=== PATIENT | female | born 1930 | race Caucasian/White ===

== ENCOUNTER → 2016-02-20 | Outpatient (CLI) | payer OTHER ==
[~2016-02-20] MED LIST: ACET325T30 PO; APIX1TAB PO; APIX1TAB3 PO; ASPI-435 PO; ATOR-24 PO; ATR10 PO; BENZ10LO2 PO; CALC600T24 PO; CEPH500C2 PO; CRAN1CAP6 PO; CRAN500C2 PO; DOCU-94 PO; DOCU100C31 PO; FURO-85 PO; HYDR1OIN11 TOP; IMDSR30 PO; ISOS30TA35 PO; LEVO25TA PO; LPR25 PO; LPT40 PO; LXP20 PO; METO25TA56 PO; MGNO400 PO; MOML PO; MULTCAP33 PO; NTRSLP4 UT; OMEG340C PO; OMG3 PO; OXYB10TA PO; OXYB10TA13 PO; PARO1TAB27 PO; PLV75 PO; POTA1TAB97 PO; SACU1TAB PO; SENN8.6T11 PO; SOTA120T PO; SOTA120T16 PO; SPT/ PO; SULF800T23 PO; ZNTT/150 PO; [UNRECOGNIZED DRUG - CODE]; [UNRECOGNIZED DRUG - CODE] MT
== END | disposition home or self-care (01) ==
LOC: C.LABSPEC 16:19
PROVIDERS: ATTEND Internal Medicine
DX: J11.1 Influenza due to unidentified influenza virus with other respiratory manifestations (principal)

== ENCOUNTER 2016-03-02 09:27 | Emergency (ER) | payer OTHER ==
[~2016-03-02 09:27] MED LIST changes: -ACET325T30 PO; -APIX1TAB PO; -APIX1TAB3 PO; -ATOR-24 PO; -ATR10 PO; -BENZ10LO2 PO; -CEPH500C2 PO; -CRAN1CAP6 PO; -DOCU-94 PO; -DOCU100C31 PO; -FURO-85 PO; -HYDR1OIN11 TOP; -ISOS30TA35 PO; -LEVO25TA PO; -METO25TA56 PO; -MGNO400 PO; -MOML PO; -OMEG340C PO; -OXYB10TA13 PO; -PARO1TAB27 PO; -POTA1TAB97 PO; -SACU1TAB PO; -SOTA120T PO; -SOTA120T16 PO; -SPT/ PO; -ZNTT/150 PO; -[UNRECOGNIZED DRUG - CODE]; -[UNRECOGNIZED DRUG - CODE] MT
[2016-03-02 09:37] VITALS: TEMP 36.3; Ht 160 cm
[2016-03-02] MEDS ORDERED: [UNRECOGNIZED DRUG - CODE] (10:16)
[2016-03-02 11:05] LABS: BASO % 1.1 %; BASO ABS # 0.07 K/uL (0-0.2); COMPLETE YES; EOS % 14.1 %; HEMATOCRIT 42.8 % (37-47); IG% 0.2 %; LYMPH ABS # 1.38 K/uL (1.2-3.4); MEAN CELL VOLUME 75.5 fL (80-100); MEAN CORPUSCULAR HEMOGLOBIN 24.3 pg (25-34); MEAN CORPUSCULAR HGB CONC 32.2 g/dl (32-36); MEAN PLATELET VOLUME 9.9 fL (7.4-10.4); MONO % 9.7 %; NEUT % 53.9 %; PLATELET COUNT 209 K/uL (130-400); RED BLOOD COUNT 5.67 M/uL (4.2-5.4); WHITE BLOOD COUNT 6.58 K/uL (4.8-10.8)
[2016-03-02 11:14] LABS: INR 1.3 (0.9-1.1); PARTIAL THROMBOPLASTIN RATIO 1.1
[2016-03-02 11:21] LABS: BLOOD UREA NITROGEN 20 mg/dl (7-18); BUN/CREATININE RATIO 16.7 (10-20); CALCIUM 9.6 mg/dl (8.5-10.1); CARBON DIOXIDE 27 mmol/L (21-32); CHLORIDE 101 mmol/L (98-107); GLUCOSE 91 mg/dl (70-99); POTASSIUM 5.8 mmol/L (3.5-5.1); SODIUM 136 mmol/L (136-145)
[2016-03-02 11:26] LABS: CKMB/CK RATIO 4.4 (0-3.0)
--- NOTE | 2016-03-02 11:43 | DIAGNOSTIC IMAGING REPORT ---
RIGHT ANKLE MIN 3 VIEWS ROUTINE CLINICAL HISTORY: Right ankle pain status post trauma COMPARISON: None. DISCUSSION: The bones are osteopenic. There is Achilles insertional spurring. There are vascular calcifications present. There is age-indeterminate bony density adjacent the lateral malleolar tip.. There is mild soft tissue swelling IMPRESSION: 1. Age-indeterminate tiny avulsion arising from the lateral malleolar tip. No evidence of dislocation. Electronically signed by: Leoncio Lopez M.D. 03/02/2016 11:42 AM Dictated Date/Time: 03/02/2016 11:40 AM
--- NOTE | 2016-03-02 11:44 | DIAGNOSTIC IMAGING REPORT ---
PELVIS 1 OR 2 VIEW ROUTINE CLINICAL HISTORY: Pelvic pain status post trauma COMPARISON STUDY: 06/20/2015 FINDINGS: The bones are osteopenic. No acute fractures are visualized. There is no evidence of SI joint diastases. There is no evidence of symphysis diastases. IMPRESSION: No acute fractures identified. Electronically signed by: Leoncio Lopez M.D. 03/02/2016 11:42 AM Dictated Date/Time: 03/02/2016 11:42 AM
--- NOTE | 2016-03-02 11:44 | DIAGNOSTIC IMAGING REPORT ---
LEFT ANKLE 3 VIEWS HISTORY: Left ankle pain. COMPARISON: None. FINDINGS: There is no fracture or dislocation. Diffuse soft tissue swelling. Mild degenerative changes within the left ankle. There are vascular calcifications present. Small posterior calcaneal spur. No radiopaque foreign bodies. IMPRESSION: No fractures. Electronically signed by: Evangelist Duran M.D. 03/02/2016 11:42 AM Dictated Date/Time: 03/02/2016 11:40 AM
--- NOTE | 2016-03-02 11:45 | DIAGNOSTIC IMAGING REPORT ---
LEFT HAND MIN 3 VIEWS ROUTINE CLINICAL HISTORY: Left hand pain following fall. Evaluate for fracture. COMPARISON: None FINDINGS: No acute fracture is identified on this exam. There is marked joint space narrowing with osteophytosis of multiple joints within the left hand. Carpal bones are intact. Dorsal soft tissue swelling is suspected. IMPRESSION: 1. No acute fracture or dislocation of the left hand. 2. 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 Electronically signed by: Rafi Oh M.D. 03/02/2016 11:44 AM Dictated Date/Time: 03/02/2016 11:41 AM
--- NOTE | 2016-03-02 11:47 | DIAGNOSTIC IMAGING REPORT ---
CHEST 2 VIEWS ROUTINE HISTORY: Fall. COMPARISON: Chest 07/23/2015. FINDINGS: No pneumothorax. Stable blunting of the costophrenic sulci. There are low lung volumes. No new focal lung consolidations to suggest pneumonia. There are poststernotomy changes and a left-sided dual-chamber pacemaker. The heart remains mildly enlarged. Old, healed left humeral neck fracture. Multiple mild anterior wedge-shaped compression deformities within the mid and lower thoracic spine. IMPRESSION: 1. No significant change compared to the prior study. No definite acute process within the chest. 2. Mild anterior wedge-shaped compression deformities within the mid and lower thoracic spine. These are age indeterminate but favor old fractures. Electronically signed by: Evangelist Duran M.D. 03/02/2016 11:45 AM Dictated Date/Time: 03/02/2016 11:42 AM
--- NOTE | 2016-03-02 12:02 | DIAGNOSTIC IMAGING REPORT ---
CT HEAD WITHOUT CONTRAST (CT) CLINICAL HISTORY: Head trauma. HEAD PAIN COMPARISON STUDY: 11/08/2015 TECHNIQUE: Axial CT of the brain is performed from the vertex to the skull base. IV contrast was not administered for this examination. CT DOSE: 958.65 mGy.cm FINDINGS: No intra or extra-axial mass lesions are visualized. There is no CT evidence of acute cortical infarction. There is no evidence of midline shift. There is no acute hemorrhage. No calvarial fractures are visualized. There are moderately extensive white matter hypodensities likely on a small vessel basis. There is no evidence of pathologic ventricular dilatation. There is no evidence of acute sinusitis IMPRESSION: No acute intracranial findings Electronically signed by: Leoncio Lopez M.D. 03/02/2016 11:56 AM Dictated Date/Time: 03/02/2016 11:55 AM
--- NOTE | 2016-03-02 12:02 | DIAGNOSTIC IMAGING REPORT ---
CT OF THE CERVICAL SPINE CLINICAL HISTORY: Neck pain status post trauma COMPARISON STUDY: 11/08/2015 CT DOSE: TECHNIQUE: CT scan of the cervical spine was performed from the skull base to the thoracic inlet. Images are reviewed in the axial, sagittal, and coronal planes. IV contrast was not administered for this examination. FINDINGS: The visualized portions of the lung apices reveal no evidence of pneumothorax. The prevertebral soft tissues are normal. No acute fractures or traumatic subluxations are visualized. There are multilevel degenerative changes. Mild anterior subluxation of C3 on C4, C4 on C5, and C5 on C6 is felt to be degenerative. This remain similar to the preceding study. There is partial C2-3 and C3-4 fusion. IMPRESSION: No evidence of acute fracture or traumatic subluxation. Electronically signed by: Leoncio Lopez M.D. 03/02/2016 11:59 AM Dictated Date/Time: 03/02/2016 11:56 AM
[2016-03-02 13:22] VITALS: BP 145/75; PULSE 70; O2SAT 95
--- NOTE | 2016-03-02 16:55 | EMERGENCY ROOM VISIT NOTE ---
History Report prepared by Azalia: Veronica Lunsford Under the Supervision of: Dr. Jhonatan Ibrara M.D. First contact with patient: 10:11 Chief Complaint: FALL Stated Complaint: FALL OUT OF BED TWICE,BOTH ANKLES,L HAND History of Present Illness The patient is an 85 year old female arriving from [facility] who presents to the Emergency Room for evaluation after suffering two falls out of bed last evening. Currently, she is in mild discomfort as she has pain to her left hand as well as her left ankle, which worsens with palpation of the areas. During the first episode last evening, the patient does not remember getting up from bed, or how she may have fallen, but she remembers falling between her bed and the wall. As she was unable to grab on to anything to stable herself, she fell to the floor, injuring her left hand. She denies hitting her head, but does note having soreness to the back of her neck after falling. As the patient does not walk on her own, she buzzed for the half-way staff, who were then able to help her back into her bed. After getting back into bed, the patient states that she fell off of the other side of her bed, this time injuring her left ankle as she fell. Again, she buzzed for the nursing staff to help her up, but as this was her second fall, they called her family this morning to bring her to the ED for further evaluation. Per family, the patient has new bruising to her left hand, and her bilateral ankles appeared to be swollen above baseline. Family was not given any other additional details about the falls. Patient denies hitting her head or losing consciousness during the episodes. She also denies pain or injury to her back, chest, abdomen, right arm, pelvis, or legs, and she has not had any headaches, chest pain, or shortness of breath. Patient has a pacemaker in pace. She has a history of a-flutter and is currently on Eliquis. Source of History: patient, family Onset: last evening Position: hand (left), ankle (left) Symptom Intensity: mild Timing: other (current) Modifying Factors (Worsening): other (palpation) Associated Symptoms: + neck pain, No LOC, No SOB, No abdominal pain, No chest pain, No headache Review of Systems See HPI for pertinent positives & negatives. A total of 10 systems reviewed and were otherwise negative. 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 (9) SYNCOPE,CAD (10) TIA, CAD, DEPRESSION Family History Noncontributory secondary to age Social History Smoking Status: Former Smoker Alcohol Use: none Marital Status: Housing Status: lives with significant other Occupation Status: unemployed Current/Historical Medications Scheduled Apixaban (Eliquis), 5 MG PO BID Aspirin (Aspirin 81), 81 MG PO DAILY Atorvastatin (Atorvastatin Calcium), 40 MG PO QPM Clopidogrel Bisulfate (Clopidogrel), 75 MG PO DAILY Cranberry (Vaccinium Macrocarp (Cranberry), 1,000 MG PO QPM Fish Oil (Fish Oil), 1 GM PO DAILY Hydroxyzine HCl (Hydroxyzine HCl), 10 MG PO Q6H Isosorbide Mononitrate (Isosorbide Mononitrate ER), 30 MG PO QAM Metoprolol Tartrate (Lopressor), 25 MG PO BID Multiple Vitamins W/ Minerals (Preservision Areds), 1 CAP PO BID Oxybutynin Chloride Er (Ditropan Xl), 10 MG PO DAILY Paroxetine (Paxil), 20 MG PO DAILY Ranitidine (Zantac), 150 MG PO DAILY Sennosides-Docusate Sodium (Doc-Q-Lax), 200 MG PO DAILY Sotalol Hcl (Sotalol Hcl), 120 MG PO BID Scheduled PRN Acetaminophen (Acetaminophen), 650 MG PO Q4 PRN for Pain or Fever Benzocaine-Menthol (Mouth-Thro (Cepacol Sore Throat), 1 JOEL PO Q8 PRN for SORE THROAT Nitroglycerin (Nitrostat), 0.4 MG UT UD PRN for Chest Pain Miscellaneous Medications Hydrocortisone (Topical) (Cortizone-10) Hydrogen Peroxide (Mouth-Throa (Peroxyl) Allergies Coded Allergies: Metronidazole (Verified Allergy, Intermediate, flu-like symptoms, 03/02/16) Tetracycline (Verified Allergy, Mild, TONGUE PEELS, 03/02/16) Nitrofurantoin (Verified Allergy, Unknown, flu like symptoms, 03/02/16) Physical Exam Vital Signs Date Time Temp Pulse Resp B/P Pulse Ox O2 Delivery O2 Flow Rate FiO2 03/02/16 13:22 70 16 145/75 95 03/02/16 12:06 70 16 158/97 03/02/16 10:41 70 149/96 73 154/99 71 151/87 03/02/16 10:41 78 03/02/16 09:37 36.3 105 18 154/109 94 Room Air Physical Exam Constitutional: Vital signs reviewed. Eyes: Pupils are equal round reactive to light. Conjunctiva are noninjected. ENT: Pharynx is clear without erythema or exudate. Mucous membranes are moist. Neck supple without meningeal signs. No midline tenderness to the cervical spine. Respiratory: Clear to auscultation bilaterally. Breath sounds are equal bilaterally. Cardiovascular: Regular rate and rhythm. No rubs or gallops. GI: Soft, nondistended and nontender. Bowel sounds are present. Musculoskeletal: Bruising to the left hand with tenderness over the base of the fourth metacarpal. No tenderness to the distal radius or ulna. No tenderness to the proximal upper extremities. Mild tenderness to the lateral malleolus of the left ankle without tenderness proximally to the lower extremities. Bilateral ankle edema, no tenderness to the right ankle. Neurological: The patient is awake and alert. Cranial nerves II-XII are intact. Motor is 5 out of 5 all extremities. Sensation is intact to light touch all extremities. Normal speech. No pronator drift. Psychiatric: Normal affect. Medical Decision & Procedures ER Provider Diagnostic Interpretation: X-ray results as stated below per interpretation by me and the radiologist: CT results as stated below per my review and radiologist interpretation. PELVIS 1 OR 2 VIEW ROUTINE CLINICAL HISTORY: Pelvic pain status post trauma COMPARISON STUDY: 06/20/2015 FINDINGS: The bones are osteopenic. No acute fractures are visualized. There is no evidence of SI joint diastases. There is no evidence of symphysis diastases. IMPRESSION: No acute fractures identified. Electronically signed by: Leoncio Lopez M.D. 03/02/2016 11:42 AM Dictated Date/Time: 03/02/2016 11:[address] HEAD WITHOUT CONTRAST (CT) CLINICAL HISTORY: Head trauma. HEAD PAIN COMPARISON STUDY: 11/08/2015 TECHNIQUE: Axial CT of the brain is performed from the vertex to the skull base. IV contrast was not administered for this examination. CT DOSE: 958.65 mGy.cm FINDINGS: No intra or extra-axial mass lesions are visualized. There is no CT evidence of acute cortical infarction. There is no evidence of midline shift. There is no acute hemorrhage. No calvarial fractures are visualized. There are moderately extensive white matter hypodensities likely on a small vessel basis. There is no evidence of pathologic ventricular dilatation. There is no evidence of acute sinusitis IMPRESSION: No acute intracranial findings Electronically signed by: Leoncio Lopez M.D. 03/02/2016 11:56 AM Dictated Date/Time: 03/02/2016 11:55 AM LEFT HAND MIN 3 VIEWS ROUTINE CLINICAL HISTORY: Left hand pain following fall. Evaluate for fracture. COMPARISON: None FINDINGS: No acute fracture is identified on this exam. There is marked joint space narrowing with osteophytosis of multiple joints within the left hand. Carpal bones are intact. Dorsal soft tissue swelling is suspected. IMPRESSION: 1. No acute fracture or dislocation of the left hand. 2. 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 Electronically signed by: Rafi hO M.D. 03/02/2016 11:44 AM Dictated Date/Time: 03/02/2016 11:41 AM CHEST 2 VIEWS ROUTINE HISTORY: Fall. COMPARISON: Chest 07/23/2015. FINDINGS: No pneumothorax. Stable blunting of the costophrenic sulci. There are low lung volumes. No new focal lung consolidations to suggest pneumonia. There are poststernotomy changes and a left-sided dual-chamber pacemaker. The heart remains mildly enlarged. Old, healed left humeral neck fracture. Multiple mild anterior wedge-shaped compression deformities within the mid and lower thoracic spine. IMPRESSION: 1. No significant change compared to the prior study. No definite acute process within the chest. 2. Mild anterior wedge-shaped compression deformities within the mid and lower thoracic spine. These are age indeterminate but favor old fractures. Electronically signed by: Evangelist Duran M.D. 03/02/2016 11:45 AM Dictated Date/Time: 03/02/2016 11:[address] OF THE CERVICAL SPINE CLINICAL HISTORY: Neck pain status post trauma COMPARISON STUDY: 11/08/2015 CT DOSE: TECHNIQUE: CT scan of the cervical spine was performed from the skull base to the thoracic inlet. Images are reviewed in the axial, sagittal, and coronal planes. IV contrast was not administered for this examination. FINDINGS: The visualized portions of the lung apices reveal no evidence of pneumothorax. The prevertebral soft tissues are normal. No acute fractures or traumatic subluxations are visualized. There are multilevel degenerative changes. Mild anterior subluxation of C3 on C4, C4 on C5, and C5 on C6 is felt to be degenerative. This remain similar to the preceding study. There is partial C2-3 and C3-4 fusion. IMPRESSION: No evidence of acute fracture or traumatic subluxation. Electronically signed by: Leoncio Lopez M.D. 03/02/2016 11:59 AM Dictated Date/Time: 03/02/2016 11:56 AM LEFT ANKLE 3 VIEWS HISTORY: Left ankle pain. COMPARISON: None. FINDINGS: There is no fracture or dislocation. Diffuse soft tissue swelling. Mild degenerative changes within the left ankle. There are vascular calcifications present. Small posterior calcaneal spur. No radiopaque foreign bodies. IMPRESSION: No fractures. Electronically signed by: Evangelist Duran M.D. 03/02/2016 11:42 AM Dictated Date/Time: 03/02/2016 11:40 AM RIGHT ANKLE MIN 3 VIEWS ROUTINE CLINICAL HISTORY: Right ankle pain status post trauma COMPARISON: None. DISCUSSION: The bones are osteopenic. There is Achilles insertional spurring. There are vascular calcifications present. There is age-indeterminate bony density adjacent the lateral malleolar tip.. There is mild soft tissue swelling IMPRESSION: 1. Age-indeterminate tiny avulsion arising from the lateral malleolar tip. No evidence of dislocation. Electronically signed by: Leoncio Lopez M.D. 03/02/2016 11:42 AM Dictated Date/Time: 03/02/2016 11:40 AM Laboratory Results 03/02/16 10:53 Red Blood Count 5.67, Mean Corpuscular Volume 75.5, Mean Corpuscular Hemoglobin 24.3, Mean Corpuscular Hemoglobin Concent 32.2, Mean Platelet Volume 9.9, Neutrophils (%) (Auto) 53.9, Lymphocytes (%) (Auto) 21.0, Monocytes (%) (Auto) 9.7, Eosinophils (%) (Auto) 14.1, Basophils (%) (Auto) 1.1, Neutrophils # (Auto ) 3.55, Lymphocytes # (Auto) 1.38, Monocytes # (Auto) 0.64, Eosinophils # (Auto ) 0.93, Basophils # (Auto) 0.07 03/02/16 10:53 03/02/16 12:20 Test 03/02/16 10:53 White Blood Count 6.58 K/uL (4.8-10.8) Red Blood Count 5.67 M/uL (4.2-5.4) Hemoglobin 13.8 g/dL (12.0-16.0) Hematocrit 42.8 % (37-47) Mean Corpuscular Volume 75.5 fL (80-100) Mean Corpuscular Hemoglobin 24.3 pg (25-34) Mean Corpuscular Hemoglobin Concent 32.2 g/dl (32-36) Platelet Count 209 K/uL (130-400) Mean Platelet Volume 9.9 fL (7.4-10.4) Neutrophils (%) (Auto) 53.9 % Lymphocytes (%) (Auto) 21.0 % Monocytes (%) (Auto) 9.7 % Eosinophils (%) (Auto) 14.1 % Basophils (%) (Auto) 1.1 % Neutrophils # (Auto) 3.55 K/uL (1.4-6.5) Lymphocytes # (Auto) 1.38 K/uL (1.2-3.4) Monocytes # (Auto) 0.64 K/uL (0.11-0.59) Eosinophils # (Auto) 0.93 K/uL (0-0.5) Basophils # (Auto) 0.07 K/uL (0-0.2) RDW Standard Deviation 50.6 fL (36.4-46.3) RDW Coefficient of Variation 18.4 % (11.5-14.5) Immature Granulocyte % (Auto) 0.2 % Immature Granulocyte # (Auto) 0.01 K/uL (0.00-0.02) Prothrombin Time 14.0 SECONDS (9.0-12.0) Prothromb Time International Ratio 1.3 (0.9-1.1) Activated Partial Thromboplast Time 29.6 SECONDS (21.0-31.0) Partial Thromboplastin Ratio 1.1 Anion Gap 8.0 mmol/L (3-11) Estimated GFR () 48.1 Estimated GFR (Non- 41.5 BUN/Creatinine Ratio 16.7 (10-20) Calcium Level 9.6 mg/dl (8.5-10.1) Total Creatine Kinase 66 U/L (26-192) Creatine Kinase MB 2.9 ng/ml (0.5-3.6) Creatine Kinase MB Ratio 4.4 (0-3.0) Troponin I < 0.015 ng/ml (0-0.045) Laboratory results as reviewed by me. ECG Indication: other (fall patient) Rate (beats per minute): 70 Rhythm: other (ventricularly paced) Findings: no ectopy, other (QRS 148 ms) ED Course 1012: The patient was evaluated in room A3. A complete history and physical exam was performed. 1200: Radha ODONNELL talked to staff at [facility]. They stated that the patient had a mechanical fall, and there was no loss of consciousness. They also stated that the patient has become increasingly sleepy and weak, and she has falling more frequently. 1225: Upon reevaluation, the patient was doing well and appeared to be resting comfortably. I updated her and her family on the results of her radiology reports. The patient does not have any tenderness over her right ankle, so I explained that the fracture that was found was consistent with an old finding. Patient's remaining lab tests are pending. 1300: I reevaluated the patient at this time and updated her and her family on the remaining results of her lab tests. They stated that they felt comfortable with the patient going back to [facility], but Dr. Jennings will be contacted. 1305: Dr. Jennings was contacted and updated on the patient's case. He is aware of the patient's fall risk and states that she often does not press the call button when she needs help. He also states that the patient is on Eliquis for a-flutter. He will talk to Dr. Ling of cardiology about how often she is in a-flutter, and if she needs to continue taking this medication. He is in agreement with sending the patient back to [facility]. 1315: Patient was reevaluated at this time. She and her family were updated on my discussion with Dr. Jennings They verbalized their understanding and agreement with the treatment plan, and the patient is now ready for disposition. Medical Decision This is an 85-year-old female presents with injuries after a fall. Differential diagnosis includes contusion, intracranial hemorrhage, hand fracture, sprain, ankle fracture. I did perform a limited focused review of portions of the patient's old chart on the electronic medical record. The patient has had no recent pertinent visits to this hospital. I did evaluate the patient as noted above. Initially was unclear how the patient fell but we did call the half-way and they stated that she suffered mechanical falls without LOC. They do state that she has been somewhat weaker than usual causing her to fall. She also does not pass for assistance when she is supposed to. IV access was established. The patient was placed on a continuous patient monitor. I did order and personally review the patient's 12- lead EKG and x-rays as described above. She has no evidence of acute fracture. Her right ankle is not tender to palpation. She was placed in a Velcro wrist splint for comfort. I did order and review the patient's blood work as noted in the electronic medical record. I did order a CT of the head and cervical spine. I did review the images myself as well as the radiology report as described above. I did discuss the test results with the patient and her family. She has no complaints at this time. They were comfortable with the patient going back to her personal [facility]. I did discuss the case with Dr. Sulma Schneider. She was discharged back to the personal [facility]. Consults Time Called: 1300 Consulting Physician: Dr. Jennings - PCP Returned Call: 1305 Dr. Jennings was updated on the patient's case. He is aware of the patient's fall risk and states that she often does not press the call button when she needs help. He also states that the patient is on Eliquis for a-flutter. He will talk to Dr. Ling of cardiology about how often she is in a-flutter, and if she needs to continue taking this medication. He is in agreement with sending the patient back to [facility]. Impression Primary Impression: Neck pain Additional Impressions: Contusion of left hand Left ankle sprain Fall Anticoagulated Scribe Attestation The scribe's documentation has been prepared under my direct and personally reviewed by me in its entirety. I confirm that the note above accurately reflects all work, treatment, procedures, and medical decision making performed by me. Departure Information Dispostion Home / Self-Care Referrals [facility] (PCP) Forms HOME CARE DOCUMENTATION FORM, IMPORTANT VISIT INFORMATION Patient Instructions Falls Risks Prevent, My [facility] Additional Instructions You have been examined and treated today on an emergency basis only. This is not a substitute for, or an effort to provide, complete comprehensive medical care. It is impossible to recognize and treat all injuries or illnesses in a single emergency department visit. It is therefore important that you follow up closely with your physician. Call as soon as possible for an appointment. Return for worsening symptoms or if you develop fever, vomiting, chest pain, headache, shortness of breath, numbness or weakness to your extremities, or any other concerning symptoms. Problem Qualifiers
== END 2016-03-02 13:22 | disposition home or self-care (01) ==
LOC: C.EDB 09:30 → C.EDA 13:22
DX: M54.2 Cervicalgia (principal); S60.222A Contusion of left hand, initial encounter; S93.402A Sprain of unspecified ligament of left ankle, initial encounter; W06.XXXA Fall from bed, initial encounter; Y92.193 Bedroom in other specified residential institution as the place of occurrence of the external cause; Z79.01 Long term (current) use of anticoagulants; I48.92 Unspecified atrial flutter; I10 Essential (primary) hypertension; Z95.0 Presence of cardiac pacemaker; Z86.73 Personal history of transient ischemic attack (TIA), and cerebral infarction without residual deficits; I25.10 Atherosclerotic heart disease of native coronary artery without angina pectoris; F32.9 Major depressive disorder, single episode, unspecified; Z87.891 Personal history of nicotine dependence; Z79.82 Long term (current) use of aspirin; Z79.899 Other long term (current) drug therapy

== ENCOUNTER 2016-03-07 16:53 | Emergency (ER) | payer OTHER ==
[~2016-03-07] VITALS: Ht 160 cm; Wt 78.7 kg
[~2016-03-07 16:53] MED LIST changes: -CALC600T24 PO; -LXP20 PO; -SULF800T23 PO; +[UNRECOGNIZED DRUG - CODE]
[2016-03-07 16:55] VITALS: TEMP 37; O2SAT 99; Ht 160 cm; Wt 78.7 kg
--- NOTE | 2016-03-07 17:07 | EMERGENCY ROOM VISIT NOTE ---
History Report prepared by Azalia: Sj Martin Under the Supervision of: Dr. Umehs Killian D.O. 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 This history and ROS are limited due to AMS. She is experiencing some mild neck and back pain. She is also lethargic. She denies any other complaints. Per the nurse, she lives at [facility]. The patient's daughter came to visit her today and stated that the patient seemed to be more mentally altered than usual. She has had 7 falls this month, 2 of which were yesterday. She seems to follow commands. Source of History: patient, nursing staff History Limited By: AMS Onset: VETERINARY ATTENDANT Position: other (global) Quality: other Timing: constant Associated Symptoms: + back pain, + neck pain, No fevers Review of Systems Limited due to AMS. 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 (9) SYNCOPE,CAD (10) TIA, CAD, DEPRESSION Family History Noncontributory secondary to age Social History Smoking Status: Former Smoker Alcohol Use: none Marital Status: Housing Status: lives with significant other Occupation Status: unemployed Current/Historical Medications Scheduled Apixaban (Eliquis), 5 MG PO BID Aspirin (Aspirin 81), 81 MG PO DAILY Atorvastatin (Atorvastatin Calcium), 40 MG PO QPM Cephalexin Monohydrate (Keflex), 500 MG PO QID Clopidogrel Bisulfate (Clopidogrel), 75 MG PO DAILY Cranberry (Vaccinium Macrocarp (Cranberry), 1,000 MG PO QPM Docusate Sodium (Docusate Sodium), 200 MG PO DAILY Fish Oil (Fish Oil), 1 GM PO DAILY Hydroxyzine HCl (Hydroxyzine HCl), 10 MG PO Q6H Isosorbide Mononitrate (Isosorbide Mononitrate ER), 30 MG PO QAM Metoprolol Tartrate (Lopressor), 25 MG PO BID Oxybutynin Chloride Er (Ditropan Xl), 10 MG PO DAILY Paroxetine (Paxil), 20 MG PO DAILY Ranitidine (Zantac), 150 MG PO DAILY Sotalol Hcl (Sotalol Hcl), 120 MG PO BID Scheduled PRN Acetaminophen (Acetaminophen), 650 MG PO Q4 PRN for Pain or Fever Benzocaine-Menthol (Mouth-Thro (Cepacol Sore Throat), 1 JOEL PO Q8 PRN for SORE THROAT Hydrocortisone (Topical) (Cortizone-10), 1 APPLN TOP TID PRN for PRN Hydrogen Peroxide (Hydrogen Peroxide), 1 DOSE MT TID PRN for PRN Magnesium Hydroxide (Milk Of Magnesia), 30 ML PO DAILY PRN for PRN Nitroglycerin (Nitrostat), 0.4 MG UT UD PRN for Chest Pain Allergies Coded Allergies: Metronidazole (Verified Allergy, Intermediate, flu-like symptoms, 03/02/16) Tetracycline (Verified Allergy, Mild, TONGUE PEELS, 03/02/16) Nitrofurantoin (Verified Allergy, Unknown, flu like symptoms, 03/02/16) Physical Exam Vital Signs Date Time Temp Pulse Resp B/P Pulse Ox O2 Delivery O2 Flow Rate FiO2 03/07/16 19:40 88 18 161/119 95 03/07/16 18:36 82 16 177/109 95 Room Air 03/07/16 17:31 74 14 173/98 97 Room Air 03/07/16 17:07 77 03/07/16 16:55 99 Room Air 03/07/16 16:55 37.0 77 14 168/109 99 Room Air Physical Exam GENERAL: Patient is listless and answers to verbal commands, but then goes to sleep easily when not stimulated. EYES: The conjunctivae are clear. The pupils are round and reactive. EARS, NOSE, MOUTH AND THROAT: The nose is without any evidence of any deformity. Mucous membranes are dry tongue is midline. NECK: Some tenderness noted in the lower cervical spine. No step off noted. ROM appeared to be intact. RESPIRATORY: Normal respiratory effort is noted there is no evidence of wheezing rhonchi or rales CARDIOVASCULAR: Regular rate and rhythm noted there no murmurs rubs or gallops normal S1 normal S2 GASTROINTESTINAL: The abdomen is soft. Bowel sounds are present in all quadrants. Abdomen is nontender MUSCULOSKELETAL/EXTREMITIES: There is no evidence of gross deformity full range of motion is noted in the hips and shoulders SKIN: There is no obvious evidence of any rash. There are no petechiae, pallor or cyanosis noted. Pedal edema bilaterally. No signs of cellulitis. NEUROLOGIC: Oriented to person, but not place time or situation. Strength is symmetric. No drift in her upper extremities. Medical Decision & Procedures ER Provider Diagnostic Interpretation: Radiology results per my review and radiologist interpretation: CT HEAD WITHOUT CONTRAST (CT) CLINICAL HISTORY: Altered mental status and weakness. COMPARISON STUDY: 03/02/2016 TECHNIQUE: Axial CT of the brain is performed from the vertex to the skull base. IV contrast was not administered for this examination. CT DOSE: 1148.77 mGy.cm FINDINGS: No intra or extra-axial mass lesions are visualized. There is no CT evidence of acute cortical infarction. There is no evidence of midline shift. There is no acute hemorrhage. No calvarial fractures are visualized. There are moderate white matter hypodensities likely on a small vessel basis. There is no evidence of pathologic ventricular dilatation. There is no evidence of acute sinusitis. There is a suspected empty sella. IMPRESSION: No acute intracranial findings Electronically signed by: Leoncio Lopez M.D. 03/07/2016 5:50 PM Dictated Date/Time: 03/07/2016 5:[address] OF THE CERVICAL SPINE CLINICAL HISTORY: Neck pain and weakness status post trauma COMPARISON STUDY: 03/02/2016 CT DOSE: TECHNIQUE: CT scan of the cervical spine was performed from the skull base to the thoracic inlet. Images are reviewed in the axial, sagittal, and coronal planes. IV contrast was not administered for this examination. FINDINGS: The visualized portions of the lung apices reveal no evidence of pneumothorax. The prevertebral soft tissues are normal. No fractures or subluxations are visualized. There are moderately advanced multilevel degenerative changes present. There is mild anterior subluxation of C4 on C5 and C5 on C6. This remains unchanged from the prior study and is felt to be on a degenerative basis. There is partial C2-3 and C3-4 fusion. IMPRESSION: No evidence of acute fracture or traumatic subluxation. Electronically signed by: Leoncio Lopez M.D. 03/07/2016 5:53 PM Dictated Date/Time: 03/07/2016 5:50 PM CHEST ONE VIEW PORTABLE CLINICAL HISTORY: Altered mental status, weakness, fall. COMPARISON STUDY: 03/02/2016 FINDINGS: The heart is borderline enlarged. There are postsurgical changes of a midline sternotomy. There is a left subclavian dual-chamber central venous pacemaker present. There is mild chronic interstitial thickening. There is no lobar consolidation. There is no overt failure. There are no significant pleural effusions.[ There is an old left proximal humeral fracture. IMPRESSION: AP portable study. No acute findings. Electronically signed by: Leoncio Lopez M.D. 03/07/2016 6:18 PM Dictated Date/Time: 03/07/2016 6:17 PM PELVIS 1 OR 2 VIEW ROUTINE CLINICAL HISTORY: Pelvic pain status post trauma COMPARISON STUDY: 03/02/2016 FINDINGS: There are vascular calcifications present. No fractures or dislocations are visualized. There is no evidence of SI joint or symphysis diastases. IMPRESSION: No fractures identified. Electronically signed by: Leoncio Lopez M.D. 03/07/2016 6:19 PM Dictated Date/Time: 03/07/2016 6:18 PM Laboratory Results 03/07/16 16:30 Red Blood Count 5.68, Mean Corpuscular Volume 74.6, Mean Corpuscular Hemoglobin 24.1, Mean Corpuscular Hemoglobin Concent 32.3, Mean Platelet Volume 10.1, Neutrophils (%) (Auto) 63.6, Lymphocytes (%) (Auto) 14.9, Monocytes (%) (Auto) 8.1, Eosinophils (%) (Auto) 12.5, Basophils (%) (Auto) 0.8, Neutrophils # (Auto ) 5.35, Lymphocytes # (Auto) 1.25, Monocytes # (Auto) 0.68, Eosinophils # (Auto ) 1.05, Basophils # (Auto) 0.07 03/07/16 16:30 Test 03/07/16 16:30 03/07/16 16:48 White Blood Count 8.41 K/uL (4.8-10.8) Red Blood Count 5.68 M/uL (4.2-5.4) Hemoglobin 13.7 g/dL (12.0-16.0) Hematocrit 42.4 % (37-47) Mean Corpuscular Volume 74.6 fL (80-100) Mean Corpuscular Hemoglobin 24.1 pg (25-34) Mean Corpuscular Hemoglobin Concent 32.3 g/dl (32-36) Platelet Count 261 K/uL (130-400) Mean Platelet Volume 10.1 fL (7.4-10.4) Neutrophils (%) (Auto) 63.6 % Lymphocytes (%) (Auto) 14.9 % Monocytes (%) (Auto) 8.1 % Eosinophils (%) (Auto) 12.5 % Basophils (%) (Auto) 0.8 % Neutrophils # (Auto) 5.35 K/uL (1.4-6.5) Lymphocytes # (Auto) 1.25 K/uL (1.2-3.4) Monocytes # (Auto) 0.68 K/uL (0.11-0.59) Eosinophils # (Auto) 1.05 K/uL (0-0.5) Basophils # (Auto) 0.07 K/uL (0-0.2) RDW Standard Deviation 49.9 fL (36.4-46.3) RDW Coefficient of Variation 18.6 % (11.5-14.5) Immature Granulocyte % (Auto) 0.1 % Immature Granulocyte # (Auto) 0.01 K/uL (0.00-0.02) Prothrombin Time 13.8 SECONDS (9.0-12.0) Prothromb Time International Ratio 1.3 (0.9-1.1) Activated Partial Thromboplast Time 29.7 SECONDS (21.0-31.0) Partial Thromboplastin Ratio 1.1 Anion Gap 9.0 mmol/L (3-11) Est Creatinine Clear Calc Drug Dose 32.0 ml/min Estimated GFR () 43.6 Estimated GFR (Non- 37.6 BUN/Creatinine Ratio 18.9 (10-20) Calcium Level 9.4 mg/dl (8.5-10.1) Phosphorus Level 3.0 mg/dl (2.5-4.9) Magnesium Level 1.9 mg/dl (1.8-2.4) Total Bilirubin 1.3 mg/dl (0.2-1) Direct Bilirubin 0.4 mg/dl (0-0.2) Aspartate Amino Transf (AST/SGOT) 23 U/L (15-37) Alanine Aminotransferase (ALT/SGPT) 25 U/L (12-78) Alkaline Phosphatase 118 U/L (45-117) Total Creatine Kinase 73 U/L (26-192) Creatine Kinase MB 2.3 ng/ml (0.5-3.6) Creatine Kinase MB Ratio 3.2 (0-3.0) Troponin I < 0.015 ng/ml (0-0.045) Pro-B-Type Natriuretic Peptide 98830 pg/ml (0-1800) Total Protein 7.4 gm/dl (6.4-8.2) Albumin 3.8 gm/dl (3.4-5.0) Lipase 292 U/L (73-393) Thyroid Stimulating Hormone (TSH) 6.070 uIu/ml (0.300-4.500) Urine Color YELLOW Urine Appearance CLEAR (CLEAR) Urine pH 6.5 (4.5-7.5) Urine Specific [place] 1.017 (1.000-1.030) Urine Protein 3+ (NEG) Urine Glucose (UA) NEG (NEG) Urine Ketones NEG (NEG) Urine Occult Blood NEG (NEG) Urine Nitrite NEG (NEG) Urine Bilirubin NEG (NEG) Urine Urobilinogen NEG (NEG) Urine Leukocyte Esterase SMALL (NEG) Urine WBC (Auto) >30 /hpf (0-5) Urine RBC (Auto) 0-4 /hpf (0-4) Urine Hyaline Casts (Auto) 10-30 /lpf (0-5) Urine Epithelial Cells (Auto) >30 /lpf (0-5) Urine Bacteria (Auto) 4+ (NEG) Laboratory results per my review. Medications Administered Medications (Trade) Dose Ordered Sig/Uzair Route Start Time Stop Time Status Last Admin Dose Admin Ceftriaxone Sodium 1 gm 1 gm NOW STAT IV 03/07/16 18:07 03/07/16 18:08 DC 03/07/16 18:35 1 GM Sodium Chloride (Nss 500ml) 500 ml @ 999 mls/hr Q31M STAT IV 03/07/16 18:13 03/07/16 18:43 DC 03/07/16 18:36 999 MLS/HR ECG Indication: altered mental status Rate (beats per minute): 80 Rhythm: other (AV dual chamber pacemaker in place) Findings: LBBB, other (No PVCs) Comparison ECG Date: 02 Mar 2016 Change: no significant change ED Course 1658: The patient was evaluated in room C4. A complete history and physical examination were performed. 1807: Rocephin Inj 1 gm IV 1812: NSS 500 ml @ 999 mls/hr IV 1936: I spoke with Dr. Sulma Schneider at this time. He will follow up with the patient as an outpatient. 1944: Upon reevaluation, the patient is resting. I discussed the results and treatment plan with her family. They verbalized agreement of the treatment plan. The patient was discharged home. Medical Decision Differential diagnosis: Etiologies such as metabolic, infection, hypoglycemia, electrolyte abnormalities , cardiac sources, intracerebral event, toxicologic, neurologic, as well as others were entertained. Nursing notes reviewed. Additional history is obtained from the patient's family members. The patient is an 85-year-old female who presented to the emergency department for an evaluation of altered mental status. The patient's family members went to visit her today and felt that she was more lethargic than usual and appeared confused at times. The patient is had similar episodes in the past with urinary tract infections. The patient was found have a urinary tract infection this evening and was treated with IV fluids and IV antibiotics. I reviewed the patient's previous urinalysis and urine cultures to choose an antibiotic. The patient currently resides at a personal correction. The patient has a primary care physician. I discussed the patient's laboratory and radiographic studies with her primary care physician at this time. The patient's primary care physician is concerned about her frequent falls and is unsure if she can continue to reside at a personal correction. He states that he will look into this further with family members as well as the people in the personal correction to see if the patient may require a higher level care. Certainly with IV antibiotics she may continue to improve and may do well with rehabilitation. I discussed the patient's laboratory and radiographic studies with her and her family members. She was encouraged to continue all medications as prescribed. She was also encouraged to follow-up with primary care physician this week but return to the emergency department immediately if symptoms change worsen or the need arises. Consults Time Called: 1934 Consulting Physician: Dr. Sulma Schneider Returned Call: 1936 He will follow up with the patient as an outpatient. Impression Primary Impression: Altered mental status Additional Impression: UTI (urinary tract infection) Scribe Attestation The scribe's documentation has been prepared under my direction and personally reviewed by me in its entirety. I confirm that the note above accurately reflects all work, treatment, procedures, and medical decision making performed by me. Departure Information Dispostion Home / Self-Care Prescriptions Cephalexin Monohydrate (KEFLEX) 500 Mg Cap 500 MG PO QID, #28 CAP Prov: Umesh Killian, DO 03/07/16 Referrals [facility] (PCP) Dejan Jackson M.D. Forms HOME CARE DOCUMENTATION FORM, IMPORTANT VISIT INFORMATION Patient Instructions My [facility], Urinary Tract Infection - [facility] Additional Instructions Continue all medications as prescribed. Follow-up with your family this week. Problem Qualifiers
[2016-03-07 17:17] LABS: BASO % 0.8 %; BASO ABS # 0.07 K/uL (0-0.2); COMPLETE YES; EOS % 12.5 %; HEMATOCRIT 42.4 % (37-47); IG% 0.1 %; LYMPH % 14.9 %; LYMPH ABS # 1.25 K/uL (1.2-3.4); MEAN CELL VOLUME 74.6 fL (80-100); MEAN CORPUSCULAR HEMOGLOBIN 24.1 pg (25-34); MEAN CORPUSCULAR HGB CONC 32.3 g/dl (32-36); MEAN PLATELET VOLUME 10.1 fL (7.4-10.4); MONO % 8.1 %; NEUT % 63.6 %; PLATELET COUNT 261 K/uL (130-400); RED BLOOD COUNT 5.68 M/uL (4.2-5.4); WHITE BLOOD COUNT 8.41 K/uL (4.8-10.8)
[2016-03-07 17:26] LABS: INR 1.3 (0.9-1.1); PARTIAL THROMBOPLASTIN RATIO 1.1; PROTHROMBIN TIME (PATIENT) 13.8 SECONDS (9.0-12.0)
[2016-03-07 17:27] LABS: URINE APPEARANCE CLEAR (CLEAR); URINE BILIRUBIN NEG (NEG); URINE COLOR YELLOW; URINE EPITHELIAL CELL AUTO >30 /lpf (0-5); URINE NITRITE NEG (NEG); URINE PH 6.5 (4.5-7.5); URINE SPECIFIC GRAVITY 1.017 (1.000-1.030); UROBILINOGEN NEG (NEG)
[2016-03-07 17:36] LABS: MANUAL MICROSCOPIC REQUIRED? NO; REVIEW REQ? NO
[2016-03-07 17:36] LABS: ALT/SGPT 25 U/L (12-78); AST/SGOT 23 U/L (15-37); BLOOD UREA NITROGEN 25 mg/dl (7-18); BUN/CREATININE RATIO 18.9 (10-20); CALCIUM 9.4 mg/dl (8.5-10.1); CARBON DIOXIDE 28 mmol/L (21-32); CHLORIDE 99 mmol/L (98-107); GLUCOSE 103 mg/dl (70-99); MAGNESIUM 1.9 mg/dl (1.8-2.4); POTASSIUM 4.5 mmol/L (3.5-5.1); SODIUM 136 mmol/L (136-145)
[2016-03-07 17:44] LABS: ALKALINE PHOSPHATASE 118 U/L (45-117); CKMB/CK RATIO 3.2 (0-3.0)
--- NOTE | 2016-03-07 17:52 | DIAGNOSTIC IMAGING REPORT ---
CT HEAD WITHOUT CONTRAST (CT) CLINICAL HISTORY: Altered mental status and weakness. COMPARISON STUDY: 03/02/2016 TECHNIQUE: Axial CT of the brain is performed from the vertex to the skull base. IV contrast was not administered for this examination. CT DOSE: 1148.77 mGy.cm FINDINGS: No intra or extra-axial mass lesions are visualized. There is no CT evidence of acute cortical infarction. There is no evidence of midline shift. There is no acute hemorrhage. No calvarial fractures are visualized. There are moderate white matter hypodensities likely on a small vessel basis. There is no evidence of pathologic ventricular dilatation. There is no evidence of acute sinusitis. There is a suspected empty sella. IMPRESSION: No acute intracranial findings Electronically signed by: Leoncio Lopez M.D. 03/07/2016 5:50 PM Dictated Date/Time: 03/07/2016 5:49 PM
--- NOTE | 2016-03-07 17:55 | DIAGNOSTIC IMAGING REPORT ---
CT OF THE CERVICAL SPINE CLINICAL HISTORY: Neck pain and weakness status post trauma COMPARISON STUDY: 03/02/2016 CT DOSE: TECHNIQUE: CT scan of the cervical spine was performed from the skull base to the thoracic inlet. Images are reviewed in the axial, sagittal, and coronal planes. IV contrast was not administered for this examination. FINDINGS: The visualized portions of the lung apices reveal no evidence of pneumothorax. The prevertebral soft tissues are normal. No fractures or subluxations are visualized. There are moderately advanced multilevel degenerative changes present. There is mild anterior subluxation of C4 on C5 and C5 on C6. This remains unchanged from the prior study and is felt to be on a degenerative basis. There is partial C2-3 and C3-4 fusion. IMPRESSION: No evidence of acute fracture or traumatic subluxation. Electronically signed by: Leoncio Lopez M.D. 03/07/2016 5:53 PM Dictated Date/Time: 03/07/2016 5:50 PM
[2016-03-07] MEDS ORDERED: CEFTRIAXONE SOD INJ 1 GM ADDVIAL IV STA (18:07)
[2016-03-07] MEDS ORDERED: SODIUM CHLORIDE 0.9% 500ML 500 ML IV STA (18:13)
--- NOTE | 2016-03-07 18:20 | DIAGNOSTIC IMAGING REPORT ---
CHEST ONE VIEW PORTABLE CLINICAL HISTORY: Altered mental status, weakness, fall. COMPARISON STUDY: 03/02/2016 FINDINGS: The heart is borderline enlarged. There are postsurgical changes of a midline sternotomy. There is a left subclavian dual-chamber central venous pacemaker present. There is mild chronic interstitial thickening. There is no lobar consolidation. There is no overt failure. There are no significant pleural effusions.[ There is an old left proximal humeral fracture. IMPRESSION: AP portable study. No acute findings. Electronically signed by: Leoncio Lopez M.D. 03/07/2016 6:18 PM Dictated Date/Time: 03/07/2016 6:17 PM
--- NOTE | 2016-03-07 18:21 | DIAGNOSTIC IMAGING REPORT ---
PELVIS 1 OR 2 VIEW ROUTINE CLINICAL HISTORY: Pelvic pain status post trauma COMPARISON STUDY: 03/02/2016 FINDINGS: There are vascular calcifications present. No fractures or dislocations are visualized. There is no evidence of SI joint or symphysis diastases. IMPRESSION: No fractures identified. Electronically signed by: Leoncio Lopez M.D. 03/07/2016 6:19 PM Dictated Date/Time: 03/07/2016 6:18 PM
[2016-03-07] MEDS ORDERED: CEPH500C2 PO (19:38)
[2016-03-07 19:40] VITALS: BP 161/119; PULSE 88; O2SAT 95
[2016-03-08] MEDS ORDERED: ATR10 PO (10:16)
[2016-03-08] MEDS ORDERED: PARO1TAB27 PO (10:16)
[2016-03-08] MEDS ORDERED: HYDR1OIN11 TOP (10:16)
[2016-03-08] MEDS ORDERED: [UNRECOGNIZED DRUG - CODE] MT (17:24)
[2016-03-08] MEDS ORDERED: DOCU100C31 PO (17:24)
[2016-03-08] MEDS ORDERED: MOML PO (17:24)
[2016-03-08] MEDS ORDERED: APIX1TAB3 PO (23:15)
[2016-03-08] MEDS ORDERED: SOTA120T PO (23:15)
[2016-03-08] MEDS ORDERED: ZNTT/150 PO (23:15)
[2016-03-08] MEDS ORDERED: ACET325T30 PO (23:18)
[2016-03-08] MEDS ORDERED: BENZ10LO2 PO (23:20)
== END 2016-03-07 20:00 | disposition home or self-care (01) ==
LOC: EDBD 16:53 → C.EDC 16:54
DX: R41.82 Altered mental status, unspecified (principal); N39.0 Urinary tract infection, site not specified; Z95.0 Presence of cardiac pacemaker; Z86.73 Personal history of transient ischemic attack (TIA), and cerebral infarction without residual deficits; Z79.82 Long term (current) use of aspirin; I10 Essential (primary) hypertension; I25.10 Atherosclerotic heart disease of native coronary artery without angina pectoris; Z87.891 Personal history of nicotine dependence; Z79.01 Long term (current) use of anticoagulants

== ENCOUNTER 2016-03-08 08:49 | Emergency (ER) | payer OTHER ==
[~2016-03-08] VITALS: Ht 162.6 cm; Wt 81.1 kg
[~2016-03-08 08:49] MED LIST changes: +CEPH500C2 PO; -MULTCAP33 PO; -SENN8.6T11 PO; -[UNRECOGNIZED DRUG - CODE]
[2016-03-08 08:53] VITALS: TEMP 36.7; Ht 162.6 cm; Wt 81.1 kg
--- NOTE | 2016-03-08 09:19 | EMERGENCY ROOM VISIT NOTE ---
History Report prepared by Azalia: Nini Kelley Under the Supervision of: Dr. Roby Calderon M.D. First contact with patient: 09:02 Chief Complaint: ALTERED MENTAL STATUS Stated Complaint: ALTERED MENTAL STATUS Nursing Triage Summary: pt here yesterday with ams and dx with uti. Increased ams/lethargy. History of Present Illness The patient is a 85 year old female who presents to the Emergency Room with complaints of altered mental status starting prior to arrival. As per nursing notes, the patient comes from [facility]. She was evaluated in the Emergency Room yesterday and she was diagnosed with a UTI. HPI is limited secondary to altered mental status. Source of History: patient History Limited By: AMS Position: other (global) Quality: other (altered mental status) Review of Systems ROS is limited secondary to altered mental status. 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 (9) SYNCOPE,CAD (10) TIA, CAD, DEPRESSION Family History Noncontributory secondary to age Social History Smoking Status: Unknown if Ever Smoked Alcohol Use: none Marital Status: Housing Status: lives with significant other Occupation Status: unemployed Current/Historical Medications Scheduled Apixaban (Eliquis), 5 MG PO BID Aspirin (Aspirin 81), 81 MG PO DAILY Atorvastatin (Atorvastatin Calcium), 40 MG PO QPM Clopidogrel Bisulfate (Clopidogrel), 75 MG PO DAILY Cranberry (Vaccinium Macrocarp (Cranberry), 1,000 MG PO QPM Docusate Sodium (Docusate Sodium), 200 MG PO DAILY Fish Oil (Fish Oil), 1 GM PO DAILY Hydroxyzine HCl (Hydroxyzine HCl), 10 MG PO Q6H Isosorbide Mononitrate (Isosorbide Mononitrate ER), 30 MG PO QAM Metoprolol Tartrate (Lopressor), 25 MG PO BID Oxybutynin Chloride Er (Ditropan Xl), 10 MG PO DAILY Paroxetine (Paxil), 20 MG PO DAILY Ranitidine (Zantac), 150 MG PO DAILY Sotalol Hcl (Sotalol Hcl), 120 MG PO BID Scheduled PRN Acetaminophen (Acetaminophen), 650 MG PO Q4 PRN for Pain or Fever Benzocaine-Menthol (Mouth-Thro (Cepacol Sore Throat), 1 JOEL PO Q8 PRN for SORE THROAT Hydrocortisone (Topical) (Cortizone-10), 1 APPLN TOP TID PRN for PRN Hydrogen Peroxide (Hydrogen Peroxide), 1 DOSE MT TID PRN for PRN Magnesium Hydroxide (Milk Of Magnesia), 30 ML PO DAILY PRN for PRN Nitroglycerin (Nitrostat), 0.4 MG UT UD PRN for Chest Pain Allergies Coded Allergies: Metronidazole (Verified Allergy, Intermediate, flu-like symptoms, 03/08/16) Tetracycline (Verified Allergy, Mild, TONGUE PEELS, 03/08/16) Nitrofurantoin (Verified Allergy, Unknown, flu like symptoms, 03/08/16) Physical Exam Vital Signs Date Time Temp Pulse Resp B/P Pulse Ox O2 Delivery O2 Flow Rate FiO2 03/08/16 13:21 71 03/08/16 10:44 72 18 182/128 95 178/101 03/08/16 08:59 86 03/08/16 08:53 36.7 89 24 168/121 96 Room Air Medical Decision & Procedures ER Provider Diagnostic Interpretation: X-ray results as stated below per my interpretation and radiologist interpretation. CT results as stated below per my review and radiologist interpretation. CHEST 2 VIEWS ROUTINE CLINICAL HISTORY: Altered mental status. COMPARISON STUDY: Chest radiograph March 07, 2016. FINDINGS: A dual lead left subclavian pacemaker, median sternotomy wires and clips from bypass grafting are present. Cardiomegaly is unchanged. There is no pneumothorax. There are trace bilateral pleural effusions. Old deformity of the proximal left humerus is incidentally noted. There is pulmonary vascular congestion without overt pulmonary edema. IMPRESSION: 1. Trace bilateral pleural effusions. 2. Pulmonary vascular congestion. No overt pulmonary edema. Electronically signed by: Rafi Oh M.D. 03/08/2016 11:18 AM Dictated Date/Time: 03/08/2016 11:[address] OF THE HEAD WITHOUT CONTRAST CLINICAL HISTORY: Altered mental status COMPARISON STUDY: Head CT March 07, 2016. CT DOSE: 823.94 mGycm TECHNIQUE: Helical axial images of the head were obtained without IV contrast. Automated exposure control was utilized for the study. FINDINGS: No acute intracranial hemorrhage, midline shift or mass effect is present. Ventricular system is stable. The basilar cisterns are patent. There are no extra-axial collections. Extensive white matter hypodensity suggests small vessel disease. There are no findings to suggest acute dural sinus thrombosis or acute territorial infarct. Visual portions of the sinuses and mastoid air cells are clear. There are no significant calvarial abnormalities. IMPRESSION: No acute intracranial findings. Electronically signed by: Rafi Oh M.D. 03/08/2016 10:33 AM Dictated Date/Time: 03/08/2016 10:29 AM Laboratory Results 03/08/16 10:02 Red Blood Count 5.55, Mean Corpuscular Volume 75.1, Mean Corpuscular Hemoglobin 24.1, Mean Corpuscular Hemoglobin Concent 32.1, Mean Platelet Volume 9.7, Neutrophils (%) (Auto) 66.6, Lymphocytes (%) (Auto) 14.7, Monocytes (%) (Auto) 8.8, Eosinophils (%) (Auto) 8.9, Basophils (%) (Auto) 0.8, Neutrophils # (Auto) 5.61, Lymphocytes # (Auto) 1.24, Monocytes # (Auto) 0.74, Eosinophils # (Auto) 0.75, Basophils # (Auto) 0.07 03/08/16 09:40 Test 03/08/16 09:40 03/08/16 10:02 03/08/16 10:13 Anion Gap 13.0 mmol/L (3-11) Est Creatinine Clear Calc Drug Dose 33.2 ml/min Estimated GFR () 43.6 Estimated GFR (Non- 37.6 BUN/Creatinine Ratio 17.4 (10-20) Calcium Level 9.5 mg/dl (8.5-10.1) Magnesium Level 2.1 mg/dl (1.8-2.4) Troponin I 0.016 ng/ml (0-0.045) White Blood Count 8.43 K/uL (4.8-10.8) Red Blood Count 5.55 M/uL (4.2-5.4) Hemoglobin 13.4 g/dL (12.0-16.0) Hematocrit 41.7 % (37-47) Mean Corpuscular Volume 75.1 fL (80-100) Mean Corpuscular Hemoglobin 24.1 pg (25-34) Mean Corpuscular Hemoglobin Concent 32.1 g/dl (32-36) Platelet Count 247 K/uL (130-400) Mean Platelet Volume 9.7 fL (7.4-10.4) Neutrophils (%) (Auto) 66.6 % Lymphocytes (%) (Auto) 14.7 % Monocytes (%) (Auto) 8.8 % Eosinophils (%) (Auto) 8.9 % Basophils (%) (Auto) 0.8 % Neutrophils # (Auto) 5.61 K/uL (1.4-6.5) Lymphocytes # (Auto) 1.24 K/uL (1.2-3.4) Monocytes # (Auto) 0.74 K/uL (0.11-0.59) Eosinophils # (Auto) 0.75 K/uL (0-0.5) Basophils # (Auto) 0.07 K/uL (0-0.2) RDW Standard Deviation 50.9 fL (36.4-46.3) RDW Coefficient of Variation 18.7 % (11.5-14.5) Immature Granulocyte % (Auto) 0.2 % Immature Granulocyte # (Auto) 0.02 K/uL (0.00-0.02) Urine Color YELLOW Urine Appearance CLEAR (CLEAR) Urine pH 6.5 (4.5-7.5) Urine Specific [place] 1.018 (1.000-1.030) Urine Protein 3+ (NEG) Urine Glucose (UA) NEG (NEG) Urine Ketones NEG (NEG) Urine Occult Blood NEG (NEG) Urine Nitrite NEG (NEG) Urine Bilirubin NEG (NEG) Urine Urobilinogen NEG (NEG) Urine Leukocyte Esterase TRACE (NEG) Urine WBC (Auto) 1-5 /hpf (0-5) Urine RBC (Auto) 0-4 /hpf (0-4) Urine Hyaline Casts (Auto) 1-5 /lpf (0-5) Urine Epithelial Cells (Auto) >30 /lpf (0-5) Urine Bacteria (Auto) NEG (NEG) Urine Renal Epithelial Cells 0-5 /lpf (0-5) Urine Opiates Screen NEG (NEG) Urine Methadone, Qualitative NEG (NEG) Urine Barbiturates NEG (NEG) Urine Phencyclidine (PCP) Level NEG (NEG) Ur Amphetamine/Methamphetamine NEG (NEG) MDMA (Ecstasy) Screen NEG (NEG) Urine Benzodiazepines Screen NEG (NEG) Urine Cocaine Metabolite NEG (NEG) Urine Marijuana (THC) NEG (NEG) Labs reviewed by ED physician. ECG Indication: altered mental status Rate (beats per minute): 70 Rhythm: other (Paced rhythm) Findings: nonspecific-ST abn, other (Artifact) ED Course 0902: Past medical records reviewed. The patient was evaluated in room A11B. A complete history and physical examination was performed. 1146: Upon reexamination the patient is resting comfortably. I discussed results and treatment plan with the patient's family. They verbalize agreement and understanding. The patient is ready for discharge. Medical Decision 85 y/o brought to ED for weakness and mild confusion after recent ED visit at which time imaging and labs were unremarkable other than contaminated UA. Repeat CT Head and labs obtained which were negative for acute disease. Pt resides at [facility]. Case management spoke with family about placement options. OT/PT evaluations obtained in ED. Please see case management note for full details. Impression Primary Impression: Weakness Scribe Attestation The scribe's documentation has been prepared under my direction and personally reviewed by me in its entirety. I confirm that the note above accurately reflects all work, treatment, procedures, and medical decision making performed by me. Departure Information Dispostion Home / Self-Care Referrals [facility] (PCP) Forms HOME CARE DOCUMENTATION FORM, IMPORTANT VISIT INFORMATION Patient Instructions ED [facility]
[2016-03-08 10:13] LABS: BUN/CREATININE RATIO 17.4 (10-20); CALCIUM 9.5 mg/dl (8.5-10.1); CREATININE 1.3 mg/dl (0.60-1.20); MAGNESIUM 2.1 mg/dl (1.8-2.4)
[2016-03-08] MEDS ORDERED: ATR10 PO (10:16)
[2016-03-08] MEDS ORDERED: HYDR1OIN11 TOP (10:16)
[2016-03-08] MEDS ORDERED: PARO1TAB27 PO (10:16)
--- NOTE | 2016-03-08 10:35 | DIAGNOSTIC IMAGING REPORT ---
CT OF THE HEAD WITHOUT CONTRAST CLINICAL HISTORY: Altered mental status COMPARISON STUDY: Head CT March 07, 2016. CT DOSE: 823.94 mGycm TECHNIQUE: Helical axial images of the head were obtained without IV contrast. Automated exposure control was utilized for the study. FINDINGS: No acute intracranial hemorrhage, midline shift or mass effect is present. Ventricular system is stable. The basilar cisterns are patent. There are no extra-axial collections. Extensive white matter hypodensity suggests small vessel disease. There are no findings to suggest acute dural sinus thrombosis or acute territorial infarct. Visual portions of the sinuses and mastoid air cells are clear. There are no significant calvarial abnormalities. IMPRESSION: No acute intracranial findings. Electronically signed by: Rafi Oh M.D. 03/08/2016 10:33 AM Dictated Date/Time: 03/08/2016 10:29 AM
[2016-03-08 10:37] LABS: BASO % 0.8 %; BASO ABS # 0.07 K/uL (0-0.2); COMPLETE YES; EOS % 8.9 %; HEMATOCRIT 41.7 % (37-47); IG% 0.2 %; LYMPH % 14.7 %; LYMPH ABS # 1.24 K/uL (1.2-3.4); MEAN CELL VOLUME 75.1 fL (80-100); MEAN CORPUSCULAR HEMOGLOBIN 24.1 pg (25-34); MEAN CORPUSCULAR HGB CONC 32.1 g/dl (32-36); MEAN PLATELET VOLUME 9.7 fL (7.4-10.4); MONO % 8.8 %; NEUT % 66.6 %; PLATELET COUNT 247 K/uL (130-400); RED BLOOD COUNT 5.55 M/uL (4.2-5.4); WHITE BLOOD COUNT 8.43 K/uL (4.8-10.8)
[2016-03-08 10:49] LABS: URINE APPEARANCE CLEAR (CLEAR); URINE BILIRUBIN NEG (NEG); URINE COLOR YELLOW; URINE EPITHELIAL CELL AUTO >30 /lpf (0-5); URINE NITRITE NEG (NEG); URINE PH 6.5 (4.5-7.5); URINE SPECIFIC GRAVITY 1.018 (1.000-1.030); UROBILINOGEN NEG (NEG)
[2016-03-08 10:57] LABS: MANUAL MICROSCOPIC REQUIRED? NO; REVIEW REQ? YES
[2016-03-08 11:19] LABS: BENZODIAZEPINE, URINE NEG (NEG); COCAINE,URINE NEG (NEG); PHENCYCLIDINE, URINE NEG (NEG)
--- NOTE | 2016-03-08 11:19 | DIAGNOSTIC IMAGING REPORT ---
CHEST 2 VIEWS ROUTINE CLINICAL HISTORY: Altered mental status. COMPARISON STUDY: Chest radiograph March 07, 2016. FINDINGS: A dual lead left subclavian pacemaker, median sternotomy wires and clips from bypass grafting are present. Cardiomegaly is unchanged. There is no pneumothorax. There are trace bilateral pleural effusions. Old deformity of the proximal left humerus is incidentally noted. There is pulmonary vascular congestion without overt pulmonary edema. IMPRESSION: 1. Trace bilateral pleural effusions. 2. Pulmonary vascular congestion. No overt pulmonary edema. Electronically signed by: Rafi Oh M.D. 03/08/2016 11:18 AM Dictated Date/Time: 03/08/2016 11:16 AM
[2016-03-08] MEDS ORDERED: MOML PO (17:24)
[2016-03-08] MEDS ORDERED: DOCU100C31 PO (17:24)
[2016-03-08] MEDS ORDERED: [UNRECOGNIZED DRUG - CODE] MT (17:24)
[2016-03-08 20:11] VITALS: BP 169/94; PULSE 72; O2SAT 100
[2016-03-08] MEDS ORDERED: APIX1TAB3 PO (23:15)
[2016-03-08] MEDS ORDERED: ZNTT/150 PO (23:15)
[2016-03-08] MEDS ORDERED: SOTA120T PO (23:15)
[2016-03-08] MEDS ORDERED: ACET325T30 PO (23:18)
[2016-03-08] MEDS ORDERED: BENZ10LO2 PO (23:20)
== END 2016-03-08 20:20 | disposition short-term general hospital (02) ==
LOC: EDBD 08:49 → C.EDA 08:50
DX: R53.1 Weakness (principal); I10 Essential (primary) hypertension; I25.10 Atherosclerotic heart disease of native coronary artery without angina pectoris; F32.9 Major depressive disorder, single episode, unspecified; Z95.0 Presence of cardiac pacemaker; Z86.73 Personal history of transient ischemic attack (TIA), and cerebral infarction without residual deficits; Z79.82 Long term (current) use of aspirin; Z79.899 Other long term (current) drug therapy

== ENCOUNTER 2016-03-14 17:42 | Emergency (ER) | payer OTHER ==
[~2016-03-14] VITALS: Ht 165.1 cm; Wt 78.8 kg
[~2016-03-14 17:42] MED LIST changes: +ACET325T30 PO; +APIX1TAB3 PO; +ATR10 PO; +BENZ10LO2 PO; -CEPH500C2 PO; +DOCU100C31 PO; +HYDR1OIN11 TOP; +MOML PO; +PARO1TAB27 PO; +SOTA120T PO; +ZNTT/150 PO; +[UNRECOGNIZED DRUG - CODE] MT
[2016-03-14 17:45] VITALS: TEMP 36.5; Ht 165.1 cm; Wt 78.8 kg
[2016-03-14] MEDS ORDERED: OXYMETAZOLINE HCL 0.05% NA SPR 15 ML BTL ONE (18:26)
[2016-03-14] MEDS ORDERED: LIDOCAINE HCL 1% 20 ML VIAL ONE (18:26)
[2016-03-14] MEDS ORDERED: SILVER NITR/POTASSIUM NITRATE 10 APPLICATOR PACK ONE (18:32)
[2016-03-14] MEDS ORDERED: METOPROLOL TARTRATE 25 MG TAB PO STA (20:20)
[2016-03-14 20:26] VITALS: PULSE 70; O2SAT 100
[2016-03-14] MEDS ORDERED: SOTALOL HCL 80 MG TAB PO ONE (20:30)
[2016-03-14 20:54] VITALS: BP 153/111
--- NOTE | 2016-03-15 02:45 | EMERGENCY ROOM VISIT NOTE ---
History Report prepared by Azalia: Gary Arguello Under the Supervision of: Dr. Jeff Lozano M.D. First contact with patient: 18:07 Chief Complaint: NOSE BLEED (MINOR) Stated Complaint: NOSE BLEED History of Present Illness The patient is a 85 year old female who presents to the Emergency Room with complaints of a persistent nose bleed that started yesterday morning. The patient notes that the bleeding has been on and off. It started on the right side. She has no history of nose bleeds in the past. The patient is on multiple blood thinners for family history of heart disease, a pacemaker, and bypass surgery. Since the bleeding started, they have been using tissues and ice on her neck to help with her symptoms. She notes trouble breathing because of the nose bleed. She also complains of some nausea and loss of appetite. Pt denies LOC, headache, fevers, chills, diaphoresis, visual changes, neck pain, chest pain, vomiting, abdominal pain, back pain, melena, hematochezia, urinary symptoms, numbness, weakness, lymphadenopathy, rash, or other complaints. Source of History: patient, family Onset: yesterday morning Position: nose Timing: other (persistent - on and off) Associated Symptoms: + nausea Note: Other associated symptoms: difficulty breathing, loss of appetite Review of Systems See HPI for pertinent positives and negatives. A total of ten systems were reviewed and were otherwise negative. 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 (9) SYNCOPE,CAD (10) TIA, CAD, DEPRESSION Family History Heart disease Noncontributory secondary to age Social History Smoking Status: Former Smoker Alcohol Use: none Marital Status: Housing Status: lives with significant other Occupation Status: unemployed Current/Historical Medications Scheduled Apixaban (Eliquis), 5 MG PO BID Aspirin (Aspirin 81), 81 MG PO DAILY Atorvastatin (Atorvastatin Calcium), 40 MG PO QPM Clopidogrel Bisulfate (Clopidogrel), 75 MG PO DAILY Cranberry (Vaccinium Macrocarp (Cranberry), 1,000 MG PO QPM Docusate Sodium (Docusate Sodium), 200 MG PO DAILY Fish Oil (Fish Oil), 1 GM PO DAILY Hydroxyzine HCl (Hydroxyzine HCl), 10 MG PO Q6H Isosorbide Mononitrate (Isosorbide Mononitrate ER), 30 MG PO QAM Metoprolol Tartrate (Lopressor), 25 MG PO BID Oxybutynin Chloride Er (Ditropan Xl), 10 MG PO DAILY Paroxetine (Paxil), 20 MG PO DAILY Ranitidine (Zantac), 150 MG PO DAILY Sotalol Hcl (Sotalol Hcl), 120 MG PO BID Scheduled PRN Acetaminophen (Acetaminophen), 650 MG PO Q4 PRN for Pain or Fever Benzocaine-Menthol (Mouth-Thro (Cepacol Sore Throat), 1 JOEL PO Q8 PRN for SORE THROAT Hydrocortisone (Topical) (Cortizone-10), 1 APPLN TOP TID PRN for PRN Hydrogen Peroxide (Hydrogen Peroxide), 1 DOSE MT TID PRN for PRN Magnesium Hydroxide (Milk Of Magnesia), 30 ML PO DAILY PRN for PRN Nitroglycerin (Nitrostat), 0.4 MG UT UD PRN for Chest Pain Allergies Coded Allergies: Metronidazole (Verified Allergy, Intermediate, flu-like symptoms, 03/14/16) Tetracycline (Verified Allergy, Mild, TONGUE PEELS, 03/14/16) Nitrofurantoin (Verified Allergy, Unknown, flu like symptoms, 03/14/16) Physical Exam Vital Signs Date Time Temp Pulse Resp B/P Pulse Ox O2 Delivery O2 Flow Rate FiO2 03/14/16 20:54 153/111 03/14/16 20:26 70 18 172/119 100 Room Air 03/14/16 17:54 179/115 03/14/16 17:45 36.5 82 18 159/128 95 Room Air Physical Exam GENERAL: Awake, alert, well-appearing, in no distress HENT: Normocephalic. Bleeding in right nose. Right septum is somewhat irritated. Superficial blood vessel on anterior superior aspect of septum that began to bleed. Left side is normal in appearance without any bleeding. Oropharynx unremarkable.No bleeding in posterior oropharynx. EYES: Normal conjunctiva. Sclera non-icteric. NECK: Supple. No nuchal rigidity. FROM. No JVD. RESPIRATORY: Clear to auscultation. CARDIAC: Regular rate, normal rhythm. Extremities warm and well perfused. Pulses equal. ABDOMEN: Soft, non-distended. No tenderness to palpation. No rebound or guarding. No masses. MUSCULOSKELETAL: Chest examination reveals no tenderness. There is no CVA tenderness to palpation. No joint edema. LOWER EXTREMITIES: Calves are equal size bilaterally and non-tender. No edema. Chronic discoloration in bilateral lower extremities. NEURO: Normal sensorium. No sensory or motor deficits noted. SKIN: No rash or jaundice noted. Medical Decision & Procedures Medications Administered Medications (Trade) Dose Ordered Sig/Uzair Route Start Time Stop Time Status Last Admin Dose Admin Metoprolol Tartrate (Lopressor Tab) 25 mg NOW STAT PO 03/14/16 20:20 03/14/16 20:22 DC 03/14/16 20:32 25 MG Sotalol HCl (Betapace Tab) 120 mg NOW ONCE PO 03/14/16 20:30 03/14/16 20:31 DC 03/14/16 20:32 120 MG Procedure Anterior Nasal Packing Indication: Right Nose Bleed Verbal consent obtained. Risks and benefits were explained with the usual customary discussion. A time out was taken. Clots were removed with suction. The right naris was prepped with 1 ml lidocaine atomized and Afrin. Silver nitrate was applied and the bleeding stopped. Fibrillar was placed over the vessel. The patient tolerated this well. Hemostasis was achieved. No complications. ED Course 1809: The patient was evaluated in room A2. A complete history and physical exam was performed. 0: At this time, an anterior nasal packing and cauterization procedure were performed on the patient. See procedure notes above. 182: Ordered Oxymetazoline HCl 75 sprays .ROUTE, Lidocaine HCl 20 ml .ROUTE. 1831: Ordered Silver Nitrate/ Potassium Nitrate 1 pkt .ROUTE. 2015: At this time, I reevaluated the patient and she was resting comfortably. There was no bleeding. Her medications were discussed and ordered. 2019: Ordered Lopressor Tab 25 m PO. 2029: Ordered Sotalol HCL 120 mg PO. 2101: I reevaluated the patient. Discussed results and discharge instructions: She verbalized understanding and agreement. The patient is ready for discharge. Medical Decision Prior records/ancillary studies reviewed. Triage Nursing notes reviewed and agree them. Additional history obtained from family. The patient's history was concerning for epistaxis. Differential diagnosis: Etiologies such as spontaneous bleed, coagulopathy, traumatic injury, fracture, septal hematoma, posterior epistaxis as well as other pathologies were entertained. Physical examination findings: As above. Anterior bleeding source. ER treatment provided: Direct pressure and then nasal suctioning. Intranasal Afrin Silver nitrate cautery Fribrillar hemostatic cellulose applied On reassessment the patient felt better. No additional bleeding. Patient's home Oral blood pressure medication given By the evaluation outlined above emergent etiologies such as severe coagulopathy , traumatic injury, fracture, septal hematoma, posterior epistaxis, as well as others were deemed relatively unlikely. The patient and family were informed about the findings as listed above. All questions were answered and they were pleased with the treatment. Return instructions were outlined and the patient was discharged in stable condition. Referral: The patient was referred back to her PCP tomorrow The chart was completed utilizing [employer] Speech voice recognition software. Grammatical errors, random word insertions, pronoun errors, and incomplete sentences are an occasional consequence of this system due to software limitations, ambient noise, and hardware issues. Any formal questions or concerns about the content, text, or information contained within the body of this dictation should be directly addressed to the physician for clarification. Impression Primary Impression: Anterior epistaxis Scribe Attestation The scribe's documentation has been prepared under my direction and personally reviewed by me in its entirety. I confirm that the note above accurately reflects all work, treatment, procedures, and medical decision making performed by me. Departure Information Dispostion Home / Self-Care Referrals [facility] (PCP) Forms HOME CARE DOCUMENTATION FORM, IMPORTANT VISIT INFORMATION, WORK / SCHOOL INSTRUCTIONS Patient Instructions My [facility] Additional Instructions EPISTAXIS (NOSE BLEED) INSTRUCTIONS: Avoid scratching, rubbing, picking, or blowing your nose. The continuous drier helper your nasal passages the more likely they are to bleed. The following two products are available [id number] at most drug stores/pharmacies. Bullitt [place] nasal spray or similar generic saline spray to keep the nose moist 3 to 4 times a day. Apply [place] gel 2-3 times daily to the nostrils to keep them moist. If bleeding recurs apply 2 sprays of Afrin and direct pressure for an uninterrupted 20 minutes with the nasal clip. On and off pressure is much less effective because it will disturb the clots that are forming. If the bleeding is still a problem after 20 minutes or is so heavy despite the pressure return to the emergency department. Continue current medications. Follow-up with your primary physician tomorrow for a recheck of your current condition and to discuss the blood thinners and blood pressure medication. Also discuss possible ENT referral.
== END 2016-03-14 21:17 | disposition home or self-care (01) ==
LOC: EDBD 17:42 → C.EDA 17:45
DX: R04.0 Epistaxis (principal); I10 Essential (primary) hypertension; I25.10 Atherosclerotic heart disease of native coronary artery without angina pectoris; Z86.73 Personal history of transient ischemic attack (TIA), and cerebral infarction without residual deficits; Z95.0 Presence of cardiac pacemaker; F32.9 Major depressive disorder, single episode, unspecified; Z87.891 Personal history of nicotine dependence; Z79.82 Long term (current) use of aspirin; Z79.899 Other long term (current) drug therapy

== ENCOUNTER → 2016-03-17 | Outpatient (CLI) | payer OTHER ==
[~2016-03-17] MED LIST changes: +APIX1TAB PO; +ATOR-24 PO; +CRAN1CAP6 PO; +DOCU-94 PO; +FURO-85 PO; +ISOS30TA35 PO; +LEVO25TA PO; +METO25TA56 PO; +MGNO400 PO; +OMEG340C PO; +OXYB10TA13 PO; +POTA1TAB97 PO; +SACU1TAB PO; +SOTA120T16 PO; +SPT/ PO
[2016-03-17 10:02] LABS: BASO % 0.6 %; BASO ABS # 0.05 K/uL (0-0.2); COMPLETE YES; EOS % 9.8 %; HEMATOCRIT 38.8 % (37-47); IG% 0.3 %; LYMPH % 16.9 %; LYMPH ABS # 1.49 K/uL (1.2-3.4); MEAN CELL VOLUME 73.6 fL (80-100); MEAN CORPUSCULAR HEMOGLOBIN 23.7 pg (25-34); MEAN CORPUSCULAR HGB CONC 32.2 g/dl (32-36); MEAN PLATELET VOLUME 10.4 fL (7.4-10.4); MONO % 12.4 %; PLATELET COUNT 254 K/uL (130-400); RED BLOOD COUNT 5.27 M/uL (4.2-5.4)
[2016-03-17 10:16] LABS: ALT/SGPT 69 U/L (12-78); AST/SGOT 68 U/L (15-37); BLOOD UREA NITROGEN 30 mg/dl (7-18); BUN/CREATININE RATIO 24.6 (10-20); CARBON DIOXIDE 28 mmol/L (21-32); CHLORIDE 100 mmol/L (98-107); GLUCOSE 95 mg/dl (70-99); POTASSIUM 4.4 mmol/L (3.5-5.1); SODIUM 135 mmol/L (136-145)
[2016-03-17 10:18] LABS: ALB/GLOB RATIO 1.1 (0.9-2); ALKALINE PHOSPHATASE 98 U/L (45-117)
[2016-03-17 10:20] LABS: URINE APPEARANCE TURBID (CLEAR); URINE BILIRUBIN NEG (NEG); URINE COLOR YELLOW; URINE EPITHELIAL CELL AUTO >30 /lpf (0-5); URINE NITRITE NEG (NEG); URINE SPECIFIC GRAVITY 1.025 (1.000-1.030); UROBILINOGEN NEG (NEG); ZZURINE CULT IF INDIC CATH YES
[2016-03-17 10:23] LABS: MANUAL MICROSCOPIC REQUIRED? NO; REVIEW REQ? NO
== END ==
LOC: C.LABCC 09:31
PROVIDERS: ATTEND Internal Medicine
DX: R41.82 Altered mental status, unspecified (principal)

== ENCOUNTER → 2016-04-08 | Outpatient (CLI) | payer OTHER | LOC: C.LABCC 08:35 | PROVIDERS: ATTEND Internal Medicine | DX: R53.83 Other fatigue (principal); R53.81 Other malaise ==

== ENCOUNTER → 2016-04-13 | Outpatient (CLI) | payer OTHER ==
[2016-04-13 08:20] LABS: BASO % 1.1 %; BASO ABS # 0.07 K/uL (0-0.2); EOS % 13.1 %; HEMATOCRIT 37.6 % (37-47); IG% 0.2 %; LYMPH % 16.1 %; LYMPH ABS # 0.98 K/uL (1.2-3.4); MEAN CORPUSCULAR HEMOGLOBIN 22.8 pg (25-34); MEAN CORPUSCULAR HGB CONC 31.6 g/dl (32-36); MEAN PLATELET VOLUME 10.9 fL (7.4-10.4); NEUT % 58.5 %; PLATELET COUNT 213 K/uL (130-400); RED BLOOD COUNT 5.22 M/uL (4.2-5.4)
[2016-04-13 09:02] LABS: ANISOCYTOSIS PRESENT; COMPLETE YES; ECHINOCYTES 1+; POLYCHROMASIA 1+
== END ==
LOC: C.LABCC 07:59
PROVIDERS: ATTEND Internal Medicine
DX: R06.02 Shortness of breath (principal)

== ENCOUNTER → 2016-04-15 | Outpatient (CLI) | payer OTHER ==
[2016-04-15 13:30] LABS: URINE APPEARANCE CLOUDY (CLEAR); URINE BILIRUBIN NEG (NEG); URINE COLOR YELLOW; URINE EPITHELIAL CELL AUTO 20-30 /lpf (0-5); URINE NITRITE POS (NEG); URINE PH 5.5 (4.5-7.5); URINE SPECIFIC GRAVITY 1.015 (1.000-1.030); UROBILINOGEN NEG (NEG); ZZURINE CULT IF INDIC CATH YES
[2016-04-15 13:36] LABS: MANUAL MICROSCOPIC REQUIRED? NO; REVIEW REQ? NO
== END ==
LOC: C.LABCC 12:13
PROVIDERS: ATTEND Internal Medicine
DX: R53.83 Other fatigue (principal)

== ENCOUNTER → 2016-04-22 | Outpatient (CLI) | payer OTHER ==
[2016-04-22 08:15] LABS: BASO % 0.7 %; BASO ABS # 0.05 K/uL (0-0.2); EOS % 17.6 %; IG% 0.1 %; LYMPH % 18.8 %; LYMPH ABS # 1.42 K/uL (1.2-3.4); MEAN CELL VOLUME 69.9 fL (80-100); MEAN CORPUSCULAR HEMOGLOBIN 22.6 pg (25-34); MEAN CORPUSCULAR HGB CONC 32.4 g/dl (32-36); MONO % 9.4 %; NEUT % 53.4 %; PLATELET COUNT 187 K/uL (130-400); RED BLOOD COUNT 5.44 M/uL (4.2-5.4); WHITE BLOOD COUNT 7.55 K/uL (4.8-10.8)
[2016-04-22 08:26] LABS: INR 1.4 (0.9-1.1); PARTIAL THROMBOPLASTIN RATIO 1.2
[2016-04-22 08:29] LABS: ALT/SGPT 85 U/L (12-78); BLOOD UREA NITROGEN 18 mg/dl (7-18); CALCIUM 8.6 mg/dl (8.5-10.1); CARBON DIOXIDE 21 mmol/L (21-32); CHLORIDE 99 mmol/L (98-107); GLUCOSE 83 mg/dl (70-99); POTASSIUM 4.4 mmol/L (3.5-5.1); SODIUM 133 mmol/L (136-145)
[2016-04-22 08:32] LABS: ALB/GLOB RATIO 0.9 (0.9-2); ALKALINE PHOSPHATASE 123 U/L (45-117); AST/SGOT 93 U/L (15-37)
[2016-04-22 09:31] LABS: ANISOCYTOSIS PRESENT; COMPLETE YES; POIKILOCYTOSIS PRESENT
== END ==
LOC: C.LABCC 08:01
PROVIDERS: ATTEND Internal Medicine
DX: M79.81 Nontraumatic hematoma of soft tissue (principal)

== ENCOUNTER → 2016-04-26 | Outpatient (CLI) | payer OTHER ==
[2016-04-26 08:42] LABS: ALT/SGPT 79 U/L (12-78); BLOOD UREA NITROGEN 19 mg/dl (7-18); BUN/CREATININE RATIO 18.9 (10-20); CALCIUM 8.5 mg/dl (8.5-10.1); CARBON DIOXIDE 25 mmol/L (21-32); CHLORIDE 101 mmol/L (98-107); GLUCOSE 82 mg/dl (70-99); POTASSIUM 3.7 mmol/L (3.5-5.1); SODIUM 135 mmol/L (136-145)
[2016-04-26 08:45] LABS: ALKALINE PHOSPHATASE 115 U/L (45-117); AST/SGOT 81 U/L (15-37)
[2016-04-26 08:48] LABS: INR 1.2 (0.9-1.1); PARTIAL THROMBOPLASTIN RATIO 1.1; PROTHROMBIN TIME (PATIENT) 13.2 SECONDS (9.0-12.0)
== END ==
LOC: C.LABCC 08:17
PROVIDERS: ATTEND Internal Medicine
DX: R79.9 Abnormal finding of blood chemistry, unspecified (principal); E87.1 Hypo-osmolality and hyponatremia

== ENCOUNTER → 2016-05-05 | Outpatient (CLI) | payer OTHER ==
[2016-05-05 20:29] LABS: MANUAL MICROSCOPIC REQUIRED? YES; URINE APPEARANCE CLOUDY (CLEAR); URINE BILIRUBIN NEG (NEG); URINE COLOR YELLOW; URINE NITRITE NEG (NEG); URINE SPECIFIC GRAVITY 1.025 (1.000-1.030); UROBILINOGEN NEG (NEG)
[2016-05-05 20:33] LABS: REVIEW REQ? NO
[2016-05-05 20:46] LABS: URINE BACTERIA 1+ (NEG)
[2016-05-05 20:47] LABS: URINE RBC 0-4 /hpf (0-4)
[2016-05-05 20:48] LABS: ZZUR CULT IF INDIC CLEAN CATCH YES
== END ==
LOC: C.LABCC 08:54
PROVIDERS: ATTEND Internal Medicine
DX: R41.82 Altered mental status, unspecified (principal)

== ENCOUNTER → 2016-05-07 | Outpatient (CLI) | payer OTHER ==
[~2016-05-07] MED LIST changes: +OPTIRAY 320 IV PRN
--- NOTE | 2016-05-07 09:24 | DIAGNOSTIC IMAGING REPORT ---
CT SCAN OF THE ABDOMEN AND PELVIS WITH IV CONTRAST CLINICAL HISTORY: Elevated hepatic transaminases. COMPARISON STUDY: Abdominal CT dated 03/12/2008. TECHNIQUE: Following the IV administration of endometrium cc of Optiray 320, CT scan of the abdomen and pelvis is performed from the lung bases to the proximal femora. Images are reviewed in the axial, sagittal, and coronal planes. IV contrast was administered without complication. Automated dose control exposure was utilized. CT DOSE: 422.02 mGy.cm FINDINGS: Lung bases: The patient is status post midline sternotomy. The heart is enlarged and without pericardial effusion. Pacemaker leads are noted. The coronary arteries are densely calcified. There are small pleural effusions, right larger than left with bibasilar atelectasis. There is a small hiatal hernia. Liver: The contrast-enhanced liver is normal in size and heterogeneous in attenuation. The liver demonstrates heterogeneous perfusion. There is no intrahepatic biliary ductal dilatation. The hepatic veins and portal veins are patent. The IVC and hepatic veins are distended, likely related to cardiac dysfunction. Gallbladder: There are layering calcified gallstones. The gallbladder is otherwise normal as imaged. Spleen: Normal in size and attenuation. Pancreas: Atrophic. Adrenal glands: Unremarkable. Kidneys: The contrast enhanced kidneys are atrophic and without hydronephrosis. The kidneys enhance symmetrically. Numerous bilateral renal cysts measure up to 5.5 cm. Additional subcentimeter cortical hypodensities also likely represent cysts but are too small for definitive characterization. Abdominal vasculature: The abdominal aorta is normal in course and caliber noting advanced atherosclerotic calcification. Bowel: The small bowel and colon are normal in course and caliber. There is mild colonic diverticulosis without CT evidence of acute diverticulitis. There is also diverticulosis of the distal small bowel loops. The appendix is nonocclusive visualized. Peritoneum: There is a small volume of abdominopelvic ascites. No intraperitoneal free air is seen. Lymphadenopathy: None. Pelvic viscera: The bladder is thick-walled and hyperemic. The uterus and adnexa are normal as visualized. Skeletal structures: The Skeletal structures are osteopenic. Lumbosacral spondylosis is observed. No lytic or blastic lesions are seen. Soft tissues: There is body wall edema. IMPRESSION: 1. The liver is normal in size and demonstrates markedly heterogeneous attenuation and perfusion. 2. There is marked distention of the IVC and hepatic veins, likely related to cardiac dysfunction. The appearance suggests congestive hepatopathy. Clinical correlation will be required. 3. Cardiomegaly. 4. Small pleural effusions, right larger than left with bibasilar atelectasis. 5. There is a small volume of abdominopelvic ascites. 6. Cholelithiasis. 7. The bladder wall appears thickened and hyperemic. Correlate clinically and with urinalysis for evidence of cystitis. 8. There is diverticulosis of the distal small bowel and colon without CT evidence of acute diverticulitis. 9. Additional findings as above. Electronically signed by: Manny Alberto M.D. 05/07/2016 9:23 AM Dictated Date/Time: 05/07/2016 9:14 AM
== END ==
LOC: C.CTS 08:04
PROVIDERS: ATTEND Physician Assistant Medical
DX: K80.20 Calculus of gallbladder without cholecystitis without obstruction (principal); I51.7 Cardiomegaly; R79.9 Abnormal finding of blood chemistry, unspecified

== ENCOUNTER → 2016-05-07 | Outpatient (CLI) | payer OTHER ==
[~2016-05-07] MED LIST changes: -OPTIRAY 320 IV PRN
[2016-05-07 09:21] LABS: THYROID STIMULATING HORMONE 5.88 uIu/ml (0.300-4.500)
== END ==
LOC: C.LABCC 08:56
PROVIDERS: ATTEND Internal Medicine
DX: R79.9 Abnormal finding of blood chemistry, unspecified (principal)

== ENCOUNTER → 2016-05-10 | Outpatient (CLI) | payer OTHER ==
[2016-05-10 10:09] LABS: ALT/SGPT 25 U/L (12-78); BLOOD UREA NITROGEN 20 mg/dl (7-18); BUN/CREATININE RATIO 20.7 (10-20); CALCIUM 8.6 mg/dl (8.5-10.1); CARBON DIOXIDE 26 mmol/L (21-32); CHLORIDE 101 mmol/L (98-107); CREATININE 0.98 mg/dl (0.60-1.20); GLUCOSE 69 mg/dl (70-99); POTASSIUM 3.6 mmol/L (3.5-5.1); SODIUM 136 mmol/L (136-145)
[2016-05-10 10:12] LABS: ALB/GLOB RATIO 0.9 (0.9-2); ALKALINE PHOSPHATASE 99 U/L (45-117); AST/SGOT 23 U/L (15-37)
== END ==
LOC: C.LABCC 09:14
PROVIDERS: ATTEND Internal Medicine
DX: I50.9 Heart failure, unspecified (principal)

== ENCOUNTER → 2016-05-17 | Outpatient (CLI) | payer OTHER ==
[2016-05-17 08:48] LABS: ALT/SGPT 56 U/L (12-78); BLOOD UREA NITROGEN 22 mg/dl (7-18); BUN/CREATININE RATIO 21.7 (10-20); CALCIUM 8.6 mg/dl (8.5-10.1); CARBON DIOXIDE 28 mmol/L (21-32); CHLORIDE 99 mmol/L (98-107); GLUCOSE 61 mg/dl (70-99); POTASSIUM 3.4 mmol/L (3.5-5.1); SODIUM 137 mmol/L (136-145)
[2016-05-17 08:51] LABS: ALB/GLOB RATIO 0.8 (0.9-2); ALKALINE PHOSPHATASE 118 U/L (45-117); AST/SGOT 76 U/L (15-37)
== END ==
LOC: C.LABCC 08:23
PROVIDERS: ATTEND Internal Medicine
DX: I50.9 Heart failure, unspecified (principal)

== ENCOUNTER 2016-05-21 12:52 | Inpatient (IN) | payer OTHER ==
[~2016-05-21] VITALS: Ht 162.6 cm; Wt 68.0 kg
[~2016-05-21 12:52] MED LIST changes: -APIX1TAB PO; -ATOR-24 PO; -CRAN1CAP6 PO; -DOCU-94 PO; -FURO-85 PO; -ISOS30TA35 PO; -LEVO25TA PO; -METO25TA56 PO; -MGNO400 PO; -OMEG340C PO; -OXYB10TA13 PO; -POTA1TAB97 PO; -SACU1TAB PO; -SOTA120T16 PO; -SPT/ PO
--- NOTE | 2016-05-21 13:33 | EMERGENCY ROOM VISIT NOTE ---
History Report prepared by Azalia: Javier Dunaway Under the Supervision of: Dong EnriqueO. First contact with patient: 13:01 Chief Complaint: FACIAL PAIN/INJURY Stated Complaint: RT SIDE FACIAL SWELLING/ FR [facility] History of Present Illness The patient is an 85 year old female who presents to the Emergency Room from [facility] via EMS with complaints of persistent right-sided facial pain that started yesterday. She also has right-sided facial swelling. She has not been seen by anybody for these symptoms. The patient was fine 2 days ago and has been doing well the past couple months, per the patient's family. The patient has had decreased appetite and fluid uptake since yesterday as well. Shortness of breath and fevers were denied. The patient says that she wants something for the pain. The family is not aware of any major illnesses going around [facility] currently. Source of History: patient, family Onset: Yesterday Position: other (face - right side) Timing: other (persistent) Associated Symptoms: No SOB, No fevers Note: Associated symptoms: Right-sided facial swelling. Decreased appetite and fluid uptake. Review of Systems See HPI for pertinent positives & negatives. A total of 10 systems reviewed and were otherwise negative. 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 (9) SYNCOPE,CAD (10) TIA, CAD, DEPRESSION Family History Heart disease Noncontributory secondary to age Social History Smoking Status: Unknown if Ever Smoked Alcohol Use: none Marital Status: Housing Status: [facility] Occupation Status: unemployed Current/Historical Medications Scheduled Apixaban (Eliquis), 2.5 MG PO BID Atorvastatin (Lipitor), 40 MG PO HS Cranberry (Vaccinium Macrocarp (Cranberry), 250 MG PO BID Docusate Sodium (Colace), 2 CAP PO QAM Furosemide (Lasix), 20 MG PO DAILY Isosorbide Mononitrate Ext Rel (Imdur Ext Rel), 1 TAB PO QAM Levothyroxine Sodium (Synthroid), 25 MCG PO DAILY Metoprolol Tartrate (Lopressor) (Lopressor), 25 MG PO BID [place]-3 Fatty Acids ([place] 3), 1 CAP PO QAM Oxybutynin Chloride Er (Ditropan Xl), 10 MG PO QAM Paroxetine (Paxil), 20 MG PO QAM Potassium Chloride (K-Tab), 20 MEQ PO DAILY Ranitidine (Zantac), 150 MG PO QAM Sacubitril-Valsartan (Entresto 24-26 mg), 1 TAB PO Q12 Sotalol Hcl (Betapace), 120 MG PO BID Allergies Coded Allergies: Metronidazole (Verified Allergy, Intermediate, flu-like symptoms, 03/14/16) Tetracycline (Verified Allergy, Mild, TONGUE PEELS, 03/14/16) Nitrofurantoin (Verified Allergy, Unknown, flu like symptoms, 03/14/16) Physical Exam Vital Signs Date Time Temp Pulse Resp B/P Pulse Ox O2 Delivery O2 Flow Rate FiO2 05/21/16 17:06 80 18 137/89 97 Room Air 05/21/16 15:30 73 18 168/93 93 Nasal Cannula 2.0 05/21/16 14:36 73 18 166/105 96 Nasal Cannula 2.0 05/21/16 13:52 73 22 133/107 97 Nasal Cannula 2.0 05/21/16 13:16 37.1 79 20 162/107 98 Nasal Cannula 2.0 05/21/16 13:03 79 Physical Exam GENERAL: Patient is awake, alert, moaning in pain, appears to be significantly uncomfortable. EYES: The conjunctivae are clear. The pupils are round and reactive. EARS, NOSE, MOUTH AND THROAT: Significant swelling over right carotid gland, significant tenderness of right carotid gland, drainage noted over right Stensen 's duct, mucous membranes dry. NECK: The neck is nontender and supple. RESPIRATORY: Normal respiratory effort is noted there is no evidence of wheezing rhonchi or rales CARDIOVASCULAR: Regular rate and rhythm noted, systolic murmur noted to auscultation GASTROINTESTINAL: The abdomen is soft. Bowel sounds are present in all quadrants. Abdomen is nontender MUSCULOSKELETAL/EXTREMITIES: There is no evidence of gross deformity full range of motion is noted in the hips and shoulders SKIN: There is no obvious evidence of any rash. There are no petechiae, pallor or cyanosis noted. NEUROLOGIC: Patient is awake alert and oriented x3. Medical Decision & Procedures ER Provider Diagnostic Interpretation: Radiology results as stated below per my review and radiologist interpretation: CT FACIAL BONES-MXILLOFAC WITHOUT CT DOSE: 603.21 mGy.cm CLINICAL HISTORY: right facial swelling COMPARISON STUDY: No previous studies for comparison. The examination is limited as no intravenous contrast was administered. TECHNIQUE: Helical images were acquired in the transverse plane. The study was reviewed and analyzed on the independent 3-D workstation. The pterygoid plates appear intact. The zygomatic arches appear intact. The globes appear intact. There is no evidence of orbital emphysema. The orbital humphrey and floor appear intact. There is opacification of a right-sided mastoid air cell. There is right-sided facial edema. There is enlargement of the right parotid gland. The findings likely represent a parotiditis. Clinical correlation is advocated. The mandibular condyles appear intact. IMPRESSION: 1. Marked enlargement and edema of the right parotid gland with surrounding right facial edema. On a statistical basis the findings are secondary to a parotiditis. Clinical correlation follow-up is recommended. If CT follow-up is contemplated, this should be performed with intravenous contrast. Electronically signed by: Leoncio Lopez M.D. 05/21/2016 2:36 PM Dictated Date/Time: 05/21/2016 2:32 PM CHEST ONE VIEW PORTABLE CLINICAL HISTORY: ABDOMINAL PAIN/GI pain COMPARISON STUDY: 03/08/2016 FINDINGS: Prior median sternotomy. Permanent bipolar cardiac pacer in good position. Lungs are clear. Diaphragms smooth. IMPRESSION: No acute process. Chronic and postoperative change. Electronically signed by: Jerry Villafuerte M.D. 05/21/2016 2:30 PM Dictated Date/Time: 05/21/2016 2:29 PM Laboratory Results 05/21/16 13:43 Red Blood Count 6.39, Mean Corpuscular Volume 70.0, Mean Corpuscular Hemoglobin 22.8, Mean Corpuscular Hemoglobin Concent 32.7, Mean Platelet Volume 9.7, Neutrophils (%) (Auto) 86.9, Lymphocytes (%) (Auto) 5.9, Monocytes (%) (Auto) 6.6, Eosinophils (%) (Auto) 0.0, Basophils (%) (Auto) 0.1, Neutrophils # (Auto) 20.04, Lymphocytes # (Auto) 1.35, Monocytes # (Auto) 1.52, Eosinophils # (Auto) 0.01, Basophils # (Auto) 0.03 05/21/16 13:43 Test 05/21/16 13:43 White Blood Count 23.07 K/uL (4.8-10.8) Red Blood Count 6.39 M/uL (4.2-5.4) Hemoglobin 14.6 g/dL (12.0-16.0) Hematocrit 44.7 % (37-47) Mean Corpuscular Volume 70.0 fL (80-100) Mean Corpuscular Hemoglobin 22.8 pg (25-34) Mean Corpuscular Hemoglobin Concent 32.7 g/dl (32-36) Platelet Count 232 K/uL (130-400) Mean Platelet Volume 9.7 fL (7.4-10.4) Neutrophils (%) (Auto) 86.9 % Lymphocytes (%) (Auto) 5.9 % Monocytes (%) (Auto) 6.6 % Eosinophils (%) (Auto) 0.0 % Basophils (%) (Auto) 0.1 % Neutrophils # (Auto) 20.04 K/uL (1.4-6.5) Lymphocytes # (Auto) 1.35 K/uL (1.2-3.4) Monocytes # (Auto) 1.52 K/uL (0.11-0.59) Eosinophils # (Auto) 0.01 K/uL (0-0.5) Basophils # (Auto) 0.03 K/uL (0-0.2) RDW Standard Deviation 60.8 fL (36.4-46.3) RDW Coefficient of Variation 24.4 % (11.5-14.5) Immature Granulocyte % (Auto) 0.5 % Immature Granulocyte # (Auto) 0.12 K/uL (0.00-0.02) Hypersegmented Polys 3+ Hypochromasia PRESENT Poikilocytosis PRESENT Anisocytosis PRESENT Microcytosis PRESENT Prothrombin Time 15.9 SECONDS (9.0-12.0) Prothromb Time International Ratio 1.5 (0.9-1.1) Activated Partial Thromboplast Time 33.6 SECONDS (21.0-31.0) Partial Thromboplastin Ratio 1.3 Anion Gap 9.0 mmol/L (3-11) Est Creatinine Clear Calc Drug Dose 29.0 ml/min Estimated GFR () 43.6 Estimated GFR (Non- 37.6 BUN/Creatinine Ratio 22.1 (10-20) Calcium Level 9.4 mg/dl (8.5-10.1) Total Bilirubin 2.1 mg/dl (0.2-1) Direct Bilirubin 1.0 mg/dl (0-0.2) Aspartate Amino Transf (AST/SGOT) 50 U/L (15-37) Alanine Aminotransferase (ALT/SGPT) 52 U/L (12-78) Alkaline Phosphatase 131 U/L (45-117) Total Protein 7.2 gm/dl (6.4-8.2) Albumin 3.1 gm/dl (3.4-5.0) Amylase Level 223 U/L (25-115) Lipase 143 U/L (73-393) Laboratory results per my review. Medications Administered Medications (Trade) Dose Ordered Sig/Uzair Route Start Time Stop Time Status Last Admin Dose Admin Fentanyl Citrate (Fentanyl Inj) 50 mcg Q20M PRN IV 05/21/16 13:45 06/04/16 13:44 05/21/16 13:49 50 MCG Ondansetron HCl 4 mg 4 mg NOW STAT IV 05/21/16 13:34 05/21/16 13:37 DC 05/21/16 13:49 4 MG Ampicillin Sodium/ Sulbactam Sodium 3000 mg/Sodium Chloride 108 ml @ 200 mls/hr ONE ONCE IV 05/21/16 13:45 05/21/16 14:17 DC 05/21/16 14:36 200 MLS/HR Sodium Chloride 500 ml @ 999 mls/hr Q31M STAT IV 05/21/16 13:34 05/21/16 14:04 DC 05/21/16 13:49 999 MLS/HR Sodium Chloride (Nss 1000ml) 1,000 ml @ 125 mls/hr Q8H STAT IV 05/21/16 13:34 05/21/16 21:33 05/21/16 13:49 125 MLS/HR ED Course 1324: The patient was evaluated in room C3. A complete history and physical examination were performed. 1334: Ordered NSS 1000 ml @ 125 mls/hr IV, NSS 500 ml @ 999 mls/hr IV, Zofran Inj 4 mg IV. 1345: Ordered Ampicillin Sodium/Sulbactam Sodium 3000 mg/Sodium Chloride 108 ml @ 200 mls/hr IV, Fentanyl Inj 50 mcg IV PRN. 1455: I discussed the patient with Dr. Joel GOODSON hospitalist. He will evaluate the patient for further treatment. 1505: I reevaluated the patient and she is resting comfortably. The patient verbally expressed understanding and agreement with the treatment plan. The patient will be evaluated for further treatment. Medical Decision Nursing notes reviewed. Additional history is obtained from the patient's family members. Differential diagnosis this patient could include tumor, deep space infection, parotitis, viral infection, trauma and other differential diagnoses were considered. The patient is an 85-year-old female who presented to the emergency department with an acute onset of right facial pain and swelling. The patient's physical exam appear to be consistent with parotitis. The patient was noted to have purulent drainage from Stensen's duct. No definite stone was noted on exam. Drainage was sent for culture and sensitivity. The patient was treated with IV fluids IV pain medicine and IV antiemetics. She was also given IV antibiotics for presumed parotitis. I discussed the patient's laboratory and radiographic studies with her and her family members. She was found have a very elevated white blood cell count. For this reason I discussed her case with the on-call [facility] hospitalist group. They've agreed to evaluate the patient in the emergency department for further management and disposition. Consults Time Called: 1450 Consulting Physician: Dr. Joel GOODSON hospitalist Returned Call: [phone] I discussed the patient with Dr. Joel GOODSON hospitalantonella. He will evaluate the patient for further treatment. Impression Primary Impression: Parotitis Additional Impression: Abnormal WBC count Scribe Attestation The scribe's documentation has been prepared under my direction and personally reviewed by me in its entirety. I confirm that the note above accurately reflects all work, treatment, procedures, and medical decision making performed by me. Departure Information Dispostion Being Evaluated By Hospitalist Referrals LexingtonNikki (PCP) Patient Instructions My [facility] Problem Qualifiers
[2016-05-21] MEDS ORDERED: SODIUM CHLORIDE 0.9% 1000ML 1,000 ML IV STA (13:34)
[2016-05-21] MEDS ORDERED: ONDANSETRON INJ 2 MG/ML 2 ML VIAL IV STA (13:34)
[2016-05-21] MEDS ORDERED: SODIUM CHLORIDE 0.9% 500ML 500 ML IV STA (13:34)
[2016-05-21] MEDS ORDERED: FENTANYL CITRATE INJ 50 MCG/1 ML 2 ML VIAL IV PRN (13:45)
[2016-05-21] MEDS ORDERED: AMPICILLIN/SULBACTAM SOD INJ 3,000 MG in SODIUM CHLORIDE 0.9% 100ML 100 ML IV ONE (13:45)
[2016-05-21 13:58] LABS: HEMATOCRIT 44.7 % (37-47); MEAN CORPUSCULAR HEMOGLOBIN 22.8 pg (25-34); MEAN CORPUSCULAR HGB CONC 32.7 g/dl (32-36); MEAN PLATELET VOLUME 9.7 fL (7.4-10.4); PLATELET COUNT 232 K/uL (130-400); RED BLOOD COUNT 6.39 M/uL (4.2-5.4); WHITE BLOOD COUNT 23.07 K/uL (4.8-10.8)
[2016-05-21 14:07] LABS: INR 1.5 (0.9-1.1); PARTIAL THROMBOPLASTIN RATIO 1.3; PROTHROMBIN TIME (PATIENT) 15.9 SECONDS (9.0-12.0)
[2016-05-21 14:15] LABS: BUN/CREATININE RATIO 22.1 (10-20); CALCIUM 9.4 mg/dl (8.5-10.1); CREATININE 1.3 mg/dl (0.60-1.20); POTASSIUM 4.1 mmol/L (3.5-5.1)
[2016-05-21 14:26] LABS: ANISOCYTOSIS PRESENT; BASO % 0.1 %; BASO ABS # 0.03 K/uL (0-0.2); COMPLETE YES; HYPERSEGMENTED POLYS 3+; HYPOCHROMIA PRESENT; IG% 0.5 %; LYMPH % 5.9 %; LYMPH ABS # 1.35 K/uL (1.2-3.4); MICROCYTOSIS PRESENT; MONO % 6.6 %; NEUT % 86.9 %; POIKILOCYTOSIS PRESENT
--- NOTE | 2016-05-21 14:32 | DIAGNOSTIC IMAGING REPORT ---
CHEST ONE VIEW PORTABLE CLINICAL HISTORY: ABDOMINAL PAIN/GI pain COMPARISON STUDY: 03/08/2016 FINDINGS: Prior median sternotomy. Permanent bipolar cardiac pacer in good position. Lungs are clear. Diaphragms smooth. IMPRESSION: No acute process. Chronic and postoperative change. Electronically signed by: Jerry Villafuerte M.D. 05/21/2016 2:30 PM Dictated Date/Time: 05/21/2016 2:29 PM
--- NOTE | 2016-05-21 14:38 | DIAGNOSTIC IMAGING REPORT ---
CT FACIAL BONES-MXILLOFAC WITHOUT CT DOSE: 603.21 mGy.cm CLINICAL HISTORY: right facial swelling COMPARISON STUDY: No previous studies for comparison. The examination is limited as no intravenous contrast was administered. TECHNIQUE: Helical images were acquired in the transverse plane. The study was reviewed and analyzed on the independent 3-D workstation. The pterygoid plates appear intact. The zygomatic arches appear intact. The globes appear intact. There is no evidence of orbital emphysema. The orbital humphrey and floor appear intact. There is opacification of a right-sided mastoid air cell. There is right-sided facial edema. There is enlargement of the right parotid gland. The findings likely represent a parotiditis. Clinical correlation is advocated. The mandibular condyles appear intact. IMPRESSION: 1. Marked enlargement and edema of the right parotid gland with surrounding right facial edema. On a statistical basis the findings are secondary to a parotiditis. Clinical correlation follow-up is recommended. If CT follow-up is contemplated, this should be performed with intravenous contrast. Electronically signed by: Leoncio Lopez M.D. 05/21/2016 2:36 PM Dictated Date/Time: 05/21/2016 2:32 PM
[2016-05-21] MEDS ORDERED: OXYB10TA13 PO (14:52)
[2016-05-21] MEDS ORDERED: ISOS30TA35 PO (14:52)
[2016-05-21] MEDS ORDERED: ZNTT/150 PO (14:52)
[2016-05-21] MEDS ORDERED: SOTA120T16 PO (14:52)
[2016-05-21] MEDS ORDERED: POTA1TAB97 PO (14:52)
[2016-05-21] MEDS ORDERED: SACU1TAB PO (14:52)
[2016-05-21] MEDS ORDERED: OMEG340C PO (14:52)
[2016-05-21] MEDS ORDERED: DOCU-94 PO (14:52)
[2016-05-21] MEDS ORDERED: METO25TA56 PO (14:52)
[2016-05-21] MEDS ORDERED: ATOR-24 PO (14:52)
[2016-05-21] MEDS ORDERED: PARO1TAB27 PO (14:52)
[2016-05-21] MEDS ORDERED: FURO-85 PO (14:52)
[2016-05-21] MEDS ORDERED: APIX1TAB PO (14:52)
[2016-05-21] MEDS ORDERED: LEVO25TA PO (14:52)
[2016-05-21] MEDS ORDERED: CRAN1CAP6 PO (14:52)
[2016-05-21] MEDS ORDERED: CLINDAMYCIN IV 600 MG in DEXTROSE 5% ADD-VANTAGE 50ML 50 ML IV SCH (15:45)
[2016-05-21] MEDS ORDERED: ONDANSETRON INJ 2 MG/ML 2 ML VIAL IV PRN (15:45)
[2016-05-21] MEDS ORDERED: POLYETHYLENE (MIRALAX) 17 GM PACK PO PRN (15:45)
[2016-05-21] MEDS ORDERED: MAGNESIUM HYDROXIDE SUSP 30 ML UDC PO PRN (15:45)
[2016-05-21] MEDS ORDERED: ALUMINUM/MAGNESIUM/SIMETH (MAALOX MAX) 30 ML UDC PO PRN (15:45)
[2016-05-21] MEDS ORDERED: HEPARIN SOD 5000 UNIT/0.5 ML CARP SQ SCH (15:45)
--- NOTE | 2016-05-21 16:05 | History and Physical ---
History & Physical Date & Time of Service: May 21, 2016 at 15:49 Chief Complaint: Rt Side Facial Swelling/ Fr [facility] Primary Care Physician: Dixon Wang M.D. History of Present Illness Source: patient, family, clinic records, hospital records Patient is a pleasant 85 y/o female, with PMHx of CAD s/p CABG in 2003 and left circumflex stent in 2011, paroxysmal a.fib, tachy-precious syndrome s/o pacemaker, hypothyroidism, HTN, hyperlipidemia, and depression, who presented to the ED because of right-sided facial swelling x2 days. History came largely from family. According to son, [facility] noticed facial swelling beginning 05/20. Today right-sided facial swelling worsened with severe pain. Patient was given IV Zosyn and Fentanyl in ED. Family states swelling has significantly decreased since arrival. Patient currently denies any pain. She states she is feeling well. Family states patient has declined rapidly over the last 2 months physically. Currently, family states she is at her baseline, denying any changes in mentation. Patient denies any fever, chills, sweats, lightheadedness , dizziness, vision changes, CP, palpitations, edema, SOB, wheezing, cough, abdominal pain, nausea, vomiting, diarrhea, urinary symptoms, melena, numbness/ tingling, weakness, muscle/joint pain, anxiety/depression, active bleeding, or new skin discoloration/changes. Past Medical/Surgical History Medical Problems: CAD s/p CABG in 2004 and left circumflex stent in 2011 paroxysmal a.fib tachy-precious syndrome s/o pacemaker hypothyroidism HTN hyperlipidemia depression Family History Heart disease Noncontributory secondary to age Social History Smoking Status: Unknown if Ever Smoked Marital Status: Housing status: lives with family Occupational Status: unemployed Immunizations History of Influenza Vaccine: Yes Influenza Vaccine Date: Nov 16, 2011 History of Tetanus Vaccine?: Yes Tetanus Immunization Date: Nov 16, 2011 History of Pneumococcal: No History of Hepatitis B Vaccine: Unknown Multi-Drug Resistant Organisms History of MDRO: Yes Type of MDRO: MRSA Allergies Coded Allergies: Metronidazole (Verified Allergy, Intermediate, flu-like symptoms, 03/14/16) Tetracycline (Verified Allergy, Mild, TONGUE PEELS, 03/14/16) Nitrofurantoin (Verified Allergy, Unknown, flu like symptoms, 03/14/16) Home Medications Scheduled Apixaban (Eliquis), 2.5 MG PO BID Atorvastatin (Lipitor), 40 MG PO HS Cranberry (Vaccinium Macrocarp (Cranberry), 250 MG PO BID Docusate Sodium (Colace), 2 CAP PO QAM Furosemide (Lasix), 20 MG PO DAILY Isosorbide Mononitrate Ext Rel (Imdur Ext Rel), 1 TAB PO QAM Levothyroxine Sodium (Synthroid), 25 MCG PO DAILY Metoprolol Tartrate (Lopressor) (Lopressor), 25 MG PO BID [place]ett-3 Fatty Acids ([place] 3), 1 CAP PO QAM Oxybutynin Chloride Er (Ditropan Xl), 10 MG PO QAM Paroxetine (Paxil), 20 MG PO QAM Potassium Chloride (K-Tab), 20 MEQ PO DAILY Ranitidine (Zantac), 150 MG PO QAM Sacubitril-Valsartan (Entresto 24-26 mg), 1 TAB PO Q12 Sotalol Hcl (Betapace), 120 MG PO BID Physical Exam Vital Signs Date Time Temp Pulse Resp B/P Pulse Ox O2 Delivery O2 Flow Rate FiO2 05/21/16 14:36 73 18 166/105 96 Nasal Cannula 2.0 05/21/16 13:52 73 22 133/107 97 Nasal Cannula 2.0 05/21/16 13:16 37.1 79 20 162/107 98 Nasal Cannula 2.0 05/21/16 13:03 79 General Appearance: no apparent distress Head: + pertinent finding (right-sided facial swelling noted ) Eyes: normal inspection, PERRL ENT: hearing grossly normal Neck: supple Respiratory/Chest: lungs clear, no respiratory distress, no accessory muscle use Cardiovascular: regular rate, rhythm Abdomen/GI: normal bowel sounds, non tender, soft Extremities/Musculoskelatal: no calf tenderness, no pedal edema Neurologic/Psych: alert, normal mood/affect Skin: normal color, warm/dry, no rash Diagnostics Laboratory Results Results Past 24 Hours Test 05/21/16 13:43 Range/Units White Blood Count 23.07 4.8-10.8 K/uL Red Blood Count 6.39 4.2-5.4 M/uL Hemoglobin 14.6 12.0-16.0 g/dL Hematocrit 44.7 37-47 % Mean Corpuscular Volume 70.0 80-100 fL Mean Corpuscular Hemoglobin 22.8 25-34 pg Mean Corpuscular Hemoglobin Concent 32.7 32-36 g/dl Platelet Count 232 130-400 K/uL Mean Platelet Volume 9.7 7.4-10.4 fL Neutrophils (%) (Auto) 86.9 % Lymphocytes (%) (Auto) 5.9 % Monocytes (%) (Auto) 6.6 % Eosinophils (%) (Auto) 0.0 % Basophils (%) (Auto) 0.1 % Neutrophils # (Auto) 20.04 1.4-6.5 K/uL Lymphocytes # (Auto) 1.35 1.2-3.4 K/uL Monocytes # (Auto) 1.52 0.11-0.59 K/uL Eosinophils # (Auto) 0.01 0-0.5 K/uL Basophils # (Auto) 0.03 0-0.2 K/uL RDW Standard Deviation 60.8 36.4-46.3 fL RDW Coefficient of Variation 24.4 11.5-14.5 % Immature Granulocyte % (Auto) 0.5 % Immature Granulocyte # (Auto) 0.12 0.00-0.02 K/uL Hypersegmented Polys 3+ Hypochromasia PRESENT Poikilocytosis PRESENT Anisocytosis PRESENT Microcytosis PRESENT Prothrombin Time 15.9 9.0-12.0 SECONDS Prothromb Time International Ratio 1.5 0.9-1.1 Activated Partial Thromboplast Time 33.6 21.0-31.0 SECONDS Partial Thromboplastin Ratio 1.3 Sodium Level 137 136-145 mmol/L Potassium Level 4.1 3.5-5.1 mmol/L Chloride Level 102 98-107 mmol/L Carbon Dioxide Level 26 21-32 mmol/L Anion Gap 9.0 3-11 mmol/L Blood Urea Nitrogen 29 7-18 mg/dl Creatinine 1.30 0.60-1.20 mg/dl Est Creatinine Clear Calc Drug Dose 29.0 ml/min Estimated GFR () 43.6 Estimated GFR (Non- 37.6 BUN/Creatinine Ratio 22.1 10-20 Random Glucose 149 70-99 mg/dl Calcium Level 9.4 8.5-10.1 mg/dl Total Bilirubin 2.1 0.2-1 mg/dl Direct Bilirubin 1.0 0-0.2 mg/dl Aspartate Amino Transf (AST/SGOT) 50 15-37 U/L Alanine Aminotransferase (ALT/SGPT) 52 12-78 U/L Alkaline Phosphatase 131 45-117 U/L Total Protein 7.2 6.4-8.2 gm/dl Albumin 3.1 3.4-5.0 gm/dl Amylase Level 223 25-115 U/L Lipase 143 73-393 U/L Microbiology Results 05/21/16 Gram Stain, Received Pending 05/21/16 Bacterial Culture, Received Pending Diagnostic Radiology CT FACIAL BONES-MXILLOFAC WITHOUT CT DOSE: 603.21 mGy.cm CLINICAL HISTORY: right facial swelling COMPARISON STUDY: No previous studies for comparison. The examination is limited as no intravenous contrast was administered. TECHNIQUE: Helical images were acquired in the transverse plane. The study was reviewed and analyzed on the independent 3-D workstation. The pterygoid plates appear intact. The zygomatic arches appear intact. The globes appear intact. There is no evidence of orbital emphysema. The orbital humphrey and floor appear intact. There is opacification of a right-sided mastoid air cell. There is right-sided facial edema. There is enlargement of the right parotid gland. The findings likely represent a parotiditis. Clinical correlation is advocated. The mandibular condyles appear intact. IMPRESSION: 1. Marked enlargement and edema of the right parotid gland with surrounding right facial edema. On a statistical basis the findings are secondary to a parotiditis. Clinical correlation follow-up is recommended. If CT follow-up is contemplated, this should be performed with intravenous contrast. Electronically signed by: Leoncio Lopez M.D. 05/21/2016 2:36 PM Dictated Date/Time: 05/21/2016 2:32 PM The status of this report is Signed. Draft = Not yet reviewed or approved by Radiologist. Signed = Reviewed and approved by Radiologist. CHEST ONE VIEW PORTABLE CLINICAL HISTORY: ABDOMINAL PAIN/GI pain COMPARISON STUDY: 03/08/2016 FINDINGS: Prior median sternotomy. Permanent bipolar cardiac pacer in good position. Lungs are clear. Diaphragms smooth. IMPRESSION: No acute process. Chronic and postoperative change. Electronically signed by: Jerry Villafuerte M.D. 05/21/2016 2:30 PM Dictated Date/Time: 05/21/2016 2:29 PM The status of this report is Signed. Draft = Not yet reviewed or approved by Radiologist. Signed = Reviewed and approved by Radiologist. Impression Assessment and Plan 85 y/o female, with PMHx of CAD s/p CABG in 2003 and left circumflex stent in 2011, paroxysmal a.fib, tachy-precious syndrome s/o pacemaker, hypothyroidism, HTN , hyperlipidemia, and depression, who presented to the ED because of right- sided facial swelling x2 days Parotitis: - Admit to med/surg - IV Zosyn + Clindamycin - IV NSS @ 75 ml/hr - IV 0.5 mg Morphine q3 hrs and Tylenol PRN for pain management - Parotid culture pending - UA pending - Per family, pureed diet at [facility]--> aspiration precautions - Follow CBC CAD s/p CABG in 2003 and left circumflex stent in 2011/paroxysmal a.fib/tachy- precious syndrome s/o pacemaker/HTN: - Continue Imdur 30 mg QAM, Lasix 20 mg daily, Eliquis 2.5 mg BID, Metoprolol 25 mg BID, Sotalol 120 mg BID, Entresto 1 tab BID, Potassium supplement CKD, stage III- stable: - IVF as above - Follow PRP Elevated LFT: Repeat CMP tomorrow AM Hyperlipidemia: Continue Lipitor 40 mg HS Hypothyroidism: Continue Synthroid 25 mcg daily Depression: Continue Paxil 20 mg QAM GI Prophylaxis: Maalox PRN, IV Zofran PRN, Colace and/or Milk of Mag PRN DVT prophylaxis: Eliquis, BETH and SCDs Code Status: LEVEL V, DNR Dispo: Resident of [facility] Physician Supervision Note: I interviewed and examined the patient. Discussed with Janna VIDES and agree with findings and plan as documented in the note. Any exceptions or clarifications are listed here: None pt has significant parotid swelling, improved with antibiotic, pt is fairly demented, family is at bedside and understanding vitals noted face significantly swollen over parotid, inner check is unremarkable, continue zosyn Documented By: Jhonatan Maldonado Level of Care Med/Surg VTE Prophylaxis VTE Risk Assessment Done? Y/N: Yes Risk Level: Moderate Given or contraindicated: Other Anticoagulation, T.E.D. Stockings, SCD's
[2016-05-21 18:26] VITALS: BP 144/92; PULSE 80; TEMP 36.6
[2016-05-21 18:33] VITALS: O2SAT 97
[2016-05-21] MEDS ORDERED: PIPERACILL/TAZOBAC CONSULT ACTIVE PRN (18:45)
[2016-05-21] MEDS ORDERED: CLINDAMYCIN CONSULT ACTIVE PRN ×2 (18:45)
[2016-05-21] MEDS ORDERED: IV FLUIDS COMPLETED PRN (19:00)
[2016-05-21] MEDS ORDERED: PIPERACILL/TAZOBAC IV 3.375 GM in DEXTROSE 5% 100ML 100 ML IV ONE (19:00)
[2016-05-21] MEDS: SODIUM CHLORIDE 0.9% 1000ML 1,000 ML IV SCH (19:27)
[2016-05-21] MEDS: MoRPHine SULFATE 2 MG/ML CARP IV PRN (19:28)
[2016-05-21] MEDS: CLINDAMYCIN IV 300 MG in DEXTROSE 5% 50ML 50 ML IV SCH (21:40)
[2016-05-21] MEDS: APIXABAN 2.5 MG TAB PO SCH (21:41)
[2016-05-21 21:47] VITALS: BP 156/94; PULSE 76
[2016-05-21] MEDS: ATORVASTATIN 40 MG TAB PO SCH (21:50)
[2016-05-21] MEDS: SOTALOL HCL 80 MG TAB PO SCH (21:50)
[2016-05-21] MEDS: METOPROLOL TARTRATE 25 MG TAB PO SCH (21:51)
[2016-05-21] MEDS: SACUBITRIL-VALSARTAN 24-26 MG TAB PO SCH (21:51)
[2016-05-21] MEDS ORDERED: PIPERACILL/TAZOBAC IV 3.375 GM in DEXTROSE 5% 100ML 100 ML IV SCH (22:00)
[2016-05-21 23:50] VITALS: BP 153/105; PULSE 73; TEMP 36.5; O2SAT 97
[2016-05-22 00:17] VITALS: BP 144/92; PULSE 80; TEMP 36.6; O2SAT 97; Ht 162.6 cm; Wt 68.0 kg
[2016-05-22] MEDS: PIPERACILL/TAZOBAC IV 3.375 GM in DEXTROSE 5% 100ML IV SCH ×3 (00:50→15:53)
[2016-05-22] MEDS ORDERED: NURSING VERBAL MED ORDER ONE (04:15)
[2016-05-22] MEDS: CLINDAMYCIN IV 300 MG in DEXTROSE 5% 50ML 50 ML IV SCH ×3 (04:24→20:16)
[2016-05-22] MEDS ORDERED: VANCOMYCIN INJ 1,200 MG in SODIUM CHLORIDE 0.9% 250ML 250 ML IV SCH (04:30)
[2016-05-22] MEDS: SODIUM CHLORIDE 0.9% 1000ML 1,000 ML IV SCH ×2 (05:03→18:32)
[2016-05-22 05:56] LABS: MEAN CELL VOLUME 71.8 fL (80-100); PLATELET COUNT 200 K/uL (130-400); RED BLOOD COUNT 6.13 M/uL (4.2-5.4); WHITE BLOOD COUNT 21.25 K/uL (4.8-10.8)
[2016-05-22 06:14] LABS: BUN/CREATININE RATIO 26.2 (10-20); CALCIUM 8.8 mg/dl (8.5-10.1); CREATININE 1.2 mg/dl (0.60-1.20); POTASSIUM 3.6 mmol/L (3.5-5.1)
[2016-05-22 06:16] LABS: ALB/GLOB RATIO 0.6 (0.9-2)
[2016-05-22] MEDS: LEVOTHYROXINE 25 MCG TAB PO SCH (06:22)
[2016-05-22 07:49] VITALS: BP 142/95; PULSE 71; TEMP 36.3; O2SAT 100
[2016-05-22] MEDS: APIXABAN 2.5 MG TAB PO SCH ×2 (08:47→20:37)
[2016-05-22] MEDS: SACUBITRIL-VALSARTAN 24-26 MG TAB PO SCH ×2 (08:50→20:37)
[2016-05-22] MEDS: RANITIDINE HCL 150 MG TAB PO SCH (08:50)
[2016-05-22] MEDS: FUROSEMIDE 20 MG TAB PO SCH (08:51)
[2016-05-22] MEDS: POTASSIUM CHLORIDE 20 MEQ TABCR PO SCH (08:52)
[2016-05-22] MEDS: SOTALOL HCL 80 MG TAB PO SCH ×2 (08:52→20:37)
[2016-05-22] MEDS: PAROXETINE 20 MG TAB PO SCH (08:53)
[2016-05-22] MEDS: ISOSORBIDE MONONITRATE 30 MG TABCR PO SCH (08:54)
[2016-05-22] MEDS: METOPROLOL TARTRATE 25 MG TAB PO SCH ×2 (08:55→20:37)
[2016-05-22] MEDS: OXYBUTYNIN CHLORIDE 5 MG TABCR PO SCH (08:56)
[2016-05-22] MEDS: DOCUSATE SODIUM 100 MG CAP PO SCH (09:00)
[2016-05-22 09:28] VITALS: O2SAT 100
[2016-05-22 12:27] LABS: BASO % 0.1 %; BASO ABS # 0.03 K/uL (0-0.2); HEMATOCRIT 42.5 % (37-47); IG% 0.5 %; LYMPH % 5.3 %; LYMPH ABS # 1.15 K/uL (1.2-3.4); MEAN CELL VOLUME 72.3 fL (80-100); MEAN CORPUSCULAR HEMOGLOBIN 23.3 pg (25-34); MEAN CORPUSCULAR HGB CONC 32.2 g/dl (32-36); MONO % 5.9 %; NEUT % 88.2 %; PLATELET COUNT 186 K/uL (130-400); RED BLOOD COUNT 5.88 M/uL (4.2-5.4); WHITE BLOOD COUNT 21.53 K/uL (4.8-10.8)
[2016-05-22 12:45] LABS: MANUAL MICROSCOPIC REQUIRED? NO; REVIEW REQ? YES; URINE APPEARANCE CLOUDY (CLEAR); URINE BILIRUBIN NEG (NEG); URINE COLOR DK YELLOW; URINE EPITHELIAL CELL AUTO >30 /lpf (0-5); URINE NITRITE NEG (NEG); URINE SPECIFIC GRAVITY 1.028 (1.000-1.030); UROBILINOGEN NEG (NEG)
[2016-05-22 13:51] LABS: ACANTHOCYTES 1+; ANISOCYTOSIS PRESENT; COMPLETE YES; POIKILOCYTOSIS PRESENT
[2016-05-22 15:24] VITALS: BP 125/80; PULSE 70; TEMP 36.9; O2SAT 98
--- NOTE | 2016-05-22 18:08 | Progress Note ---
Subjective Date of Service: May 22, 2016. Subjective Pt evaluation today including: conversation w/ patient, physical exam, chart review, lab review, review of studies, review of inpatient medication list Pain: c/o of pain in the paroitd area Voiding: no voiding problems, no incontinence Patient is seen and examined by me. Patient is a poor historian secondary to possible baseline dementia. Patient is lying in the bed and moaning. Patient does not look like in any respiratory or cardiac distress. Patient right sided swelling slightly improved. Problem List Medical Problems: (1) Abnormal WBC count Status: Acute (2) Altered mental status Status: Acute (3) Chest pain Status: Acute (4) Fall Status: Acute (5) Fall with no significant injury Status: Acute (6) Fracture, humerus, proximal Status: Acute (7) Generalized weakness Status: Acute (8) Hematoma of right chest wall Status: Acute (9) Hematoma of right thigh Status: Acute (10) Hypertension Status: Acute (11) Parotitis Status: Acute (12) Rib contusion Status: Acute (13) Supratherapeutic INR Status: Acute (14) Syncope Status: Acute (15) TIA (transient ischemic attack) Status: Acute (16) TIA (transient ischemic attack) Status: Acute (17) UTI (urinary tract infection) Status: Acute (18) Weakness Status: Acute Review of Systems All Other Systems: Reviewed and Negative (patient is unable to provide review of symptoms) Medications Medications (Trade) Dose Ordered Sig/Uzair Route Start Time Stop Time Status Last Admin Dose Admin Apixaban (Eliquis Tab) 2.5 mg BID PO 05/21/16 21:00 06/20/16 20:59 05/22/16 08:47 2.5 MG Atorvastatin Calcium (Lipitor Tab) 40 mg HS PO 05/21/16 21:00 06/20/16 20:59 05/21/16 21:50 40 MG Furosemide (Lasix Tab) 20 mg DAILY PO 05/22/16 09:00 06/21/16 08:59 05/22/16 08:51 20 MG Isosorbide Mononitrate (Imdur Ext Rel Tab) 30 mg QAM PO 05/22/16 09:00 06/21/16 08:59 05/22/16 08:54 30 MG Levothyroxine Sodium (Synthroid Tab) 25 mcg DAILYBB PO 05/22/16 06:30 06/21/16 06:59 05/22/16 06:22 25 MCG Metoprolol Tartrate (Lopressor Tab) 25 mg BID PO 05/21/16 21:00 06/20/16 20:59 05/22/16 08:55 25 MG Oxybutynin Chloride (Ditropan-Xl Tab) 10 mg QAM PO 05/22/16 09:00 06/21/16 08:59 05/22/16 08:56 10 MG Paroxetine HCl (pAXil TAB) 20 mg QAM PO 05/22/16 09:00 06/21/16 08:59 05/22/16 08:53 20 MG Ranitidine HCl (zANTac TAB) 150 mg QAM PO 05/22/16 09:00 06/21/16 08:59 05/22/16 08:50 150 MG Sacubitril/ Valsartan (Entresto 24-26 Mg) 1 tab Q12 PO 05/21/16 21:00 06/20/16 20:59 05/22/16 08:50 1 TAB Sotalol HCl (Betapace Tab) 120 mg BID PO 05/21/16 21:00 06/20/16 20:59 05/22/16 08:52 120 MG Potassium Chloride 20 meq 20 meq DAILY PO 05/22/16 09:00 06/21/16 08:59 05/22/16 08:52 20 MEQ Piperacillin Sod/ Tazobactam Sod 3.375 gm/Dextrose 115 ml @ 200 mls/hr TODAY@1900 ONCE IV 05/21/16 19:00 05/21/16 19:34 DC 05/21/16 19:28 200 MLS/HR Clindamycin Phosphate 300 mg/ Dextrose 52 ml @ 104 mls/hr Q8@04,12,20 IV 05/21/16 20:00 05/31/16 19:59 05/22/16 12:13 104 MLS/HR Piperacillin Sod/ Tazobactam Sod 3.375 gm/Dextrose 115 ml @ 28.75 mls/ hr Q8H IV 05/22/16 00:00 06/01/16 00:00 05/22/16 15:53 28.75 MLS/HR Vancomycin HCl/ Sodium Chloride (Vancomycin Inj/ Nss 250ml) 274 ml @ 125 mls/hr TODAY@0430 IV 05/22/16 04:30 05/22/16 06:42 DC 05/22/16 05:02 125 MLS/HR Objective Vital Signs Date Time Temp Pulse Resp B/P Pulse Ox O2 Delivery O2 Flow Rate FiO2 05/22/16 16:00 Nasal Cannula 2.0 05/22/16 15:24 36.9 70 18 125/80 98 Nasal Cannula 2.0 05/22/16 09:28 100 Nasal Cannula 2.0 05/22/16 08:00 Nasal Cannula 2.0 05/22/16 07:49 36.3 71 18 142/95 100 Nasal Cannula 05/22/16 00:17 36.6 80 20 144/92 97 Nasal Cannula 2.0 05/21/16 23:59 Room Air 05/21/16 23:50 36.5 73 20 153/105 97 Nasal Cannula 2.0 05/21/16 21:47 76 156/94 05/21/16 18:33 97 Nasal Cannula 2.0 05/21/16 18:26 36.6 80 18 144/92 Physical Exam Comments: General Appearance: no apparent distress Head: + pertinent finding (right-sided facial swelling noted ) Eyes: normal inspection, PERRL ENT: hearing grossly normal Neck: supple Respiratory/Chest: lungs clear, no respiratory distress, no accessory muscle use Cardiovascular: regular rate, rhythm Abdomen/GI: normal bowel sounds, non tender, soft Extremities/Musculoskelatal: no calf tenderness, no pedal edema Neurologic/Psych: alert, normal mood/affect Skin: normal color, warm/dry, no rash Laboratory Results Last 24 Hours Test 05/22/16 05:18 05/22/16 10:45 05/22/16 11:45 White Blood Count 21.25 K/uL 21.53 K/uL Red Blood Count 6.13 M/uL 5.88 M/uL Hemoglobin 14.1 g/dL 13.7 g/dL Hematocrit 44.0 % 42.5 % Mean Corpuscular Volume 71.8 fL 72.3 fL Mean Corpuscular Hemoglobin 23.0 pg 23.3 pg Mean Corpuscular Hemoglobin Concent 32.0 g/dl 32.2 g/dl RDW Standard Deviation 64.3 fL 65.3 fL RDW Coefficient of Variation 24.9 % 25.1 % Platelet Count 200 K/uL 186 K/uL Mean Platelet Volume 10.0 fL Sodium Level 140 mmol/L Potassium Level 3.6 mmol/L Chloride Level 106 mmol/L Carbon Dioxide Level 26 mmol/L Anion Gap 8.0 mmol/L Blood Urea Nitrogen 31 mg/dl Creatinine 1.20 mg/dl Est Creatinine Clear Calc Drug Dose 33.1 ml/min Estimated GFR () 48.1 Estimated GFR (Non- 41.5 BUN/Creatinine Ratio 26.2 Random Glucose 159 mg/dl Calcium Level 8.8 mg/dl Total Bilirubin 1.8 mg/dl Aspartate Amino Transf (AST/SGOT) 30 U/L Alanine Aminotransferase (ALT/SGPT) 41 U/L Alkaline Phosphatase 114 U/L Total Protein 6.3 gm/dl Albumin 2.4 gm/dl Globulin 3.9 gm/dl Albumin/Globulin Ratio 0.6 Urine Color DK YELLOW Urine Appearance CLOUDY Urine pH 7.0 Urine Specific Drift 1.028 Urine Protein 2+ Urine Glucose (UA) NEG Urine Ketones NEG Urine Occult Blood 3+ Urine Nitrite NEG Urine Bilirubin NEG Urine Urobilinogen NEG Urine Leukocyte Esterase SMALL Urine WBC (Auto) >30 /hpf Urine RBC (Auto) >30 /hpf Urine Hyaline Casts (Auto) 1-5 /lpf Urine Epithelial Cells (Auto) >30 /lpf Urine Bacteria (Auto) 2+ Urine Yeast (Auto) Neutrophils (%) (Auto) 88.2 % Lymphocytes (%) (Auto) 5.3 % Monocytes (%) (Auto) 5.9 % Eosinophils (%) (Auto) 0.0 % Basophils (%) (Auto) 0.1 % Neutrophils # (Auto) 18.97 K/uL Lymphocytes # (Auto) 1.15 K/uL Monocytes # (Auto) 1.27 K/uL Eosinophils # (Auto) 0.01 K/uL Basophils # (Auto) 0.03 K/uL Immature Granulocyte % (Auto) 0.5 % Immature Granulocyte # (Auto) 0.10 K/uL Poikilocytosis PRESENT Anisocytosis PRESENT Acanthocytes 1+ Assessment and Plan 85 y/o female, with PMHx of CAD s/p CABG in 2004 and left circumflex stent in 2012, paroxysmal a.fib, tachy-precious syndrome s/o pacemaker, hypothyroidism, HTN , hyperlipidemia, and depression, who presented to the ED because of right- sided facial swelling x2 days Parotitis: - IV Zosyn + Clindamycin - IV NSS @ 75 ml/hr - IV 0.5 mg Morphine q3 hrs and Tylenol PRN for pain management - Parotid culture pending - UA shows small leukocyte esterase, bacteria and WBC - Per family, pureed diet at [facility]--> aspiration precautions - Follow CBC in a.m. CAD s/p CABG in 2004 and left circumflex stent in 2011/paroxysmal a.fib/tachy- precious syndrome s/o pacemaker/HTN: - Continue Imdur 30 mg QAM, Lasix 20 mg daily, Eliquis 2.5 mg BID, Metoprolol 25 mg BID, Sotalol 120 mg BID, Entresto 1 tab BID, Potassium supplement CKD, stage III- stable: - IVF as above - Follow PRP Elevated LFT: Back to baseline. Hyperlipidemia: Continue Lipitor 40 mg HS Hypothyroidism: Continue Synthroid 25 mcg daily Depression: Continue Paxil 20 mg QAM GI Prophylaxis: Maalox PRN, IV Zofran PRN, Colace and/or Milk of Mag PRN DVT prophylaxis: Eliquis, BETH and SCDs Code Status: LEVEL V, DNR Dispo: Resident of [facility] Continued [facility] stay due to: multiple IV medications needed Discharge planning: correction facility
[2016-05-22 20:00] VITALS: BP 134/71; PULSE 68
[2016-05-22] MEDS: ATORVASTATIN 40 MG TAB PO SCH (20:42)
[2016-05-23] VITALS: BP 122/71; PULSE 71; TEMP 36.3; O2SAT 98
[2016-05-23] MEDS: PIPERACILL/TAZOBAC IV 3.375 GM in DEXTROSE 5% 100ML IV SCH ×4 (00:34→23:55)
[2016-05-23] MEDS: CLINDAMYCIN IV 300 MG in DEXTROSE 5% 50ML 50 ML IV SCH ×3 (04:17→19:48)
[2016-05-23] MEDS ORDERED: VANCOMYCIN CONSULT ACTIVE PRN (05:00)
[2016-05-23] MEDS: VANCOMYCIN INJ 750 MG in SODIUM CHLORIDE 0.9% 250ML 250 ML IV SCH (05:03)
[2016-05-23] MEDS: LEVOTHYROXINE 25 MCG TAB PO SCH (06:07)
[2016-05-23 07:44] LABS: ALB/GLOB RATIO 0.5 (0.9-2); BUN/CREATININE RATIO 27.6 (10-20); CALCIUM 8.2 mg/dl (8.5-10.1); CREATININE 1.1 mg/dl (0.60-1.20); POTASSIUM 4.1 mmol/L (3.5-5.1)
[2016-05-23] MEDS: SODIUM CHLORIDE 0.9% 1000ML 1,000 ML IV SCH ×2 (07:44→21:39)
[2016-05-23 07:47] VITALS: BP 151/91; PULSE 69; TEMP 36.5; O2SAT 99
[2016-05-23] MEDS: PAROXETINE 20 MG TAB PO SCH (07:55)
[2016-05-23] MEDS: POTASSIUM CHLORIDE 20 MEQ TABCR PO SCH (07:56)
[2016-05-23] MEDS: SOTALOL HCL 80 MG TAB PO SCH ×2 (07:57→20:50)
[2016-05-23] MEDS: RANITIDINE HCL 150 MG TAB PO SCH (07:57)
[2016-05-23] MEDS: METOPROLOL TARTRATE 25 MG TAB PO SCH ×2 (07:57→20:49)
[2016-05-23] MEDS: DOCUSATE SODIUM 100 MG CAP PO SCH (07:57)
[2016-05-23] MEDS: ISOSORBIDE MONONITRATE 30 MG TABCR PO SCH (07:58)
[2016-05-23] MEDS: SACUBITRIL-VALSARTAN 24-26 MG TAB PO SCH ×2 (07:58→20:48)
[2016-05-23] MEDS: OXYBUTYNIN CHLORIDE 5 MG TABCR PO SCH (07:58)
[2016-05-23] MEDS: APIXABAN 2.5 MG TAB PO SCH ×2 (07:59→20:46)
[2016-05-23] MEDS: FUROSEMIDE 20 MG TAB PO SCH (07:59)
[2016-05-23 10:55] LABS: HEMATOCRIT 39.5 % (37-47); MEAN CELL VOLUME 73.7 fL (80-100); MEAN CORPUSCULAR HEMOGLOBIN 23.5 pg (25-34); MEAN CORPUSCULAR HGB CONC 31.9 g/dl (32-36); PLATELET COUNT 176 K/uL (130-400); RED BLOOD COUNT 5.36 M/uL (4.2-5.4); WHITE BLOOD COUNT 17.57 K/uL (4.8-10.8)
[2016-05-23] MEDS: ACETAMINOPHEN 325 MG TAB PO PRN (12:52)
[2016-05-23 15:31] VITALS: PULSE 70; TEMP 36.6; O2SAT 95
--- NOTE | 2016-05-23 16:35 | Progress Note ---
Subjective Date of Service: May 23, 2016. Subjective Pt evaluation today including: conversation w/ patient, physical exam, chart review, lab review, review of inpatient medication list Pt is seen and examined by me. pt is doing very well, awake and alert, and able to follow all verbal command.Pt states her face still painful however much better than before she came to the hospital.Pt denies Cp, Sob, abd pain nausea, vomiting , and diarrhea. Problem List Medical Problems: (1) Abnormal WBC count Status: Acute (2) Altered mental status Status: Acute (3) Chest pain Status: Acute (4) Fall Status: Acute (5) Fall with no significant injury Status: Acute (6) Fracture, humerus, proximal Status: Acute (7) Generalized weakness Status: Acute (8) Hematoma of right chest wall Status: Acute (9) Hematoma of right thigh Status: Acute (10) Hypertension Status: Acute (11) Parotitis Status: Acute (12) Rib contusion Status: Acute (13) Supratherapeutic INR Status: Acute (14) Syncope Status: Acute (15) TIA (transient ischemic attack) Status: Acute (16) TIA (transient ischemic attack) Status: Acute (17) UTI (urinary tract infection) Status: Acute (18) Weakness Status: Acute Medications Medications (Trade) Dose Ordered Sig/Uzair Route Start Time Stop Time Status Last Admin Dose Admin Vancomycin HCl/ Sodium Chloride (Vancomycin Inj/ Nss 250ml) 265 ml @ 125 mls/hr DAILY@0500 IV 05/23/16 05:00 06/04/16 07:08 05/23/16 05:03 125 MLS/HR Objective Vital Signs Date Time Temp Pulse Resp B/P Pulse Ox O2 Delivery O2 Flow Rate FiO2 05/23/16 16:00 Nasal Cannula 2.0 05/23/16 15:31 36.6 70 18 95 Room Air 05/23/16 08:00 Nasal Cannula 2.0 05/23/16 07:47 36.5 69 16 151/91 99 2.0 05/23/16 04:00 Nasal Cannula 2.0 05/23/16 00:00 36.3 71 18 122/71 98 Room Air 2.0 05/22/16 20:00 Nasal Cannula 2.0 05/22/16 20:00 68 134/71 Physical Exam Comments: General Appearance: no apparent distress Head: + pertinent finding right-sided facial swelling slightly improved Eyes: normal inspection, PERRL ENT: hearing grossly normal Neck: supple Respiratory/Chest: lungs clear, no respiratory distress, no accessory muscle use Cardiovascular: regular rate, rhythm Abdomen/GI: normal bowel sounds, non tender, soft Extremities/Musculoskelatal: no calf tenderness, no pedal edema Neurologic/Psych: alert, normal mood/affect Skin: normal color, warm/dry, no rash Laboratory Results Last 24 Hours Test 05/23/16 06:39 05/23/16 10:30 Sodium Level 141 mmol/L Potassium Level 4.1 mmol/L Chloride Level 108 mmol/L Carbon Dioxide Level 23 mmol/L Anion Gap 10.0 mmol/L Blood Urea Nitrogen 30 mg/dl Creatinine 1.10 mg/dl Est Creatinine Clear Calc Drug Dose 36.1 ml/min Estimated GFR () 53.4 Estimated GFR (Non- 46.1 BUN/Creatinine Ratio 27.6 Random Glucose 73 mg/dl Calcium Level 8.2 mg/dl Total Bilirubin 1.3 mg/dl Aspartate Amino Transf (AST/SGOT) 31 U/L Alanine Aminotransferase (ALT/SGPT) 33 U/L Alkaline Phosphatase 101 U/L Total Protein 5.7 gm/dl Albumin 2.0 gm/dl Globulin 3.7 gm/dl Albumin/Globulin Ratio 0.5 Chemistry Specimen Hemolysis White Blood Count 17.57 K/uL Red Blood Count 5.36 M/uL Hemoglobin 12.6 g/dL Hematocrit 39.5 % Mean Corpuscular Volume 73.7 fL Mean Corpuscular Hemoglobin 23.5 pg Mean Corpuscular Hemoglobin Concent 31.9 g/dl RDW Standard Deviation 67.2 fL RDW Coefficient of Variation 25.0 % Platelet Count 176 K/uL Assessment and Plan 85 y/o female, with PMHx of CAD s/p CABG in 2004 and left circumflex stent in 2012, paroxysmal a.fib, tachy-precious syndrome s/o pacemaker, hypothyroidism, HTN , hyperlipidemia, and depression, who presented to the ED because of right- sided facial swelling x2 days Parotitis: - Improving slowly, WBC trending downward - IV Zosyn and Vanco, discontinue clindamycin secondary to resistant S. aures - IV NSS @ 75 ml/hr - IV 0.5 mg Morphine q3 hrs and Tylenol PRN for pain management - Parotid culture show s. aureus - UA shows small leukocyte esterase, bacteria and WBC - Per family, pureed diet at [facility]--> aspiration precautions - Follow CBC in a.m. CAD s/p CABG in 2004 and left circumflex stent in 2012/paroxysmal a.fib/tachy- precious syndrome s/o pacemaker/HTN: - Continue Imdur 30 mg QAM, Lasix 20 mg daily, Eliquis 2.5 mg BID, Metoprolol 25 mg BID, Sotalol 120 mg BID, Entresto 1 tab BID, Potassium supplement CKD, stage III- stable: - IVF as above - Follow PRP Elevated LFT: Back to baseline. Hyperlipidemia: Continue Lipitor 40 mg HS Hypothyroidism: Continue Synthroid 25 mcg daily Depression: Continue Paxil 20 mg QAM GI Prophylaxis: Maalox PRN, IV Zofran PRN, Colace and/or Milk of Mag PRN DVT prophylaxis: Eliquis, BETH and SCDs Code Status: LEVEL V, DNR Dispo: Resident of [facility] Continued [facility] stay due to: multiple IV medications needed Discharge planning: jail facility
[2016-05-23] MEDS: ATORVASTATIN 40 MG TAB PO SCH (20:48)
[2016-05-23 20:53] VITALS: BP 125/61; PULSE 69; O2SAT 98
[2016-05-24 00:41] VITALS: BP 147/87; PULSE 69; TEMP 36.6; O2SAT 98
[2016-05-24] MEDS: CLINDAMYCIN IV 300 MG in DEXTROSE 5% 50ML 50 ML IV SCH (04:18)
[2016-05-24] MEDS: VANCOMYCIN INJ 750 MG in SODIUM CHLORIDE 0.9% 250ML 250 ML IV SCH (05:17)
[2016-05-24] MEDS: LEVOTHYROXINE 25 MCG TAB PO SCH (06:36)
[2016-05-24] MEDS: PAROXETINE 20 MG TAB PO SCH (07:57)
[2016-05-24] MEDS: PIPERACILL/TAZOBAC IV 3.375 GM in DEXTROSE 5% 100ML IV SCH (07:57)
[2016-05-24] MEDS: OXYBUTYNIN CHLORIDE 5 MG TABCR PO SCH (07:57)
[2016-05-24] MEDS: DOCUSATE SODIUM 100 MG CAP PO SCH (07:57)
[2016-05-24] MEDS: SOTALOL HCL 80 MG TAB PO SCH ×2 (07:57→20:57)
[2016-05-24] MEDS: SACUBITRIL-VALSARTAN 24-26 MG TAB PO SCH ×2 (07:58→20:57)
[2016-05-24] MEDS: POTASSIUM CHLORIDE 20 MEQ TABCR PO SCH (07:58)
[2016-05-24] MEDS: METOPROLOL TARTRATE 25 MG TAB PO SCH ×2 (07:58→20:58)
[2016-05-24] MEDS: ISOSORBIDE MONONITRATE 30 MG TABCR PO SCH (07:58)
[2016-05-24] MEDS: RANITIDINE HCL 150 MG TAB PO SCH (07:58)
[2016-05-24] MEDS: FUROSEMIDE 20 MG TAB PO SCH (07:59)
[2016-05-24] MEDS: APIXABAN 2.5 MG TAB PO SCH ×2 (07:59→20:57)
[2016-05-24 08:20] VITALS: BP 151/83; PULSE 72; TEMP 36.4; O2SAT 100
[2016-05-24 08:41] LABS: MEAN CELL VOLUME 72.8 fL (80-100); MEAN CORPUSCULAR HEMOGLOBIN 22.8 pg (25-34); MEAN CORPUSCULAR HGB CONC 31.4 g/dl (32-36); PLATELET COUNT 186 K/uL (130-400); RED BLOOD COUNT 5.91 M/uL (4.2-5.4); WHITE BLOOD COUNT 11.51 K/uL (4.8-10.8)
--- NOTE | 2016-05-24 08:59 | Hospitalist Progress Note ---
Hospitalist Progress Note Date of Service May 24, 2016. Subjective Pt evaluation today including: conversation w/ patient, physical exam, chart review, lab review, review of studies, review of inpatient medication list Patient resting in bed peacefully. ROS limited secondary to baseline dementia; patient denies any CP, SOB, significant pain. According to nursing program coordinator, patient was hypoxic this AM w/ saturations in the 70' s; her O2 supplement was NOT on. Patient is currently on 3L and oxygenating at 100%. Patient eating little. On aspiration precautions- tolerating purred diet OK. Medications Current Inpatient Medications Medications (Trade) Dose Ordered Sig/Uzair Route Start Time Stop Time Status Last Admin Dose Admin Acetaminophen (Tylenol Tab) 650 mg Q4H PRN PO 05/21/16 15:45 06/20/16 15:44 05/23/16 12:52 650 MG Al Hydrox/Mg Hydrox/Simethicone (Maalox Max Susp) 15 ml Q4H PRN PO 05/21/16 15:45 06/20/16 15:44 Magnesium Hydroxide (Milk Of Magnesia Susp) 30 ml Q6H PRN PO 05/21/16 15:45 06/20/16 15:44 Polyethylene (Miralax Powder Packet) 17 gm DAILY PRN PO 05/21/16 15:45 06/20/16 15:44 Ondansetron HCl (Zofran Inj) 4 mg Q6H PRN IV 05/21/16 15:45 06/20/16 15:44 Apixaban (Eliquis Tab) 2.5 mg BID PO 05/21/16 21:00 06/20/16 20:59 05/24/16 07:59 2.5 MG Atorvastatin Calcium (Lipitor Tab) 40 mg HS PO 05/21/16 21:00 06/20/16 20:59 05/23/16 20:48 40 MG Docusate Sodium (coLACE CAP) 200 mg QAM PO 05/22/16 09:00 06/21/16 08:59 05/24/16 07:57 200 MG Furosemide (Lasix Tab) 20 mg DAILY PO 05/22/16 09:00 06/21/16 08:59 05/24/16 07:59 20 MG Isosorbide Mononitrate (Imdur Ext Rel Tab) 30 mg QAM PO 05/22/16 09:00 5/8/17 08:59 05/24/16 07:58 30 MG Levothyroxine Sodium (Synthroid Tab) 25 mcg DAILYBB PO 05/22/16 06:30 06/21/16 06:59 05/24/16 06:36 25 MCG Metoprolol Tartrate (Lopressor Tab) 25 mg BID PO 05/21/16 21:00 06/20/16 20:59 05/24/16 07:58 25 MG Oxybutynin Chloride (Ditropan-Xl Tab) 10 mg QAM PO 05/22/16 09:00 06/21/16 08:59 05/24/16 07:57 10 MG Paroxetine HCl (pAXil TAB) 20 mg QAM PO 05/22/16 09:00 06/21/16 08:59 05/24/16 07:57 20 MG Ranitidine HCl (zANTac TAB) 150 mg QAM PO 05/22/16 09:00 06/21/16 08:59 05/24/16 07:58 150 MG Sacubitril/ Valsartan (Entresto 24-26 Mg) 1 tab Q12 PO 05/21/16 21:00 06/20/16 20:59 05/24/16 07:58 1 TAB Sotalol HCl (Betapace Tab) 120 mg BID PO 05/21/16 21:00 06/20/16 20:59 05/24/16 07:57 120 MG Potassium Chloride 20 meq 20 meq DAILY PO 05/22/16 09:00 06/21/16 08:59 05/24/16 07:58 20 MEQ Sodium Chloride (Nss 1000ml) 1,000 ml @ 75 mls/hr [id number] IV 05/21/16 15:45 06/20/16 15:44 05/23/16 21:39 75 MLS/HR Morphine Sulfate (MoRPHine SULFATE INJ) 0.5 mg Q3H PRN IV 05/21/16 15:45 06/04/16 15:44 05/21/16 19:28 0.5 MG Clindamycin Phosphate (Consult) 1 ea UD PRN N/A 05/21/16 18:45 06/20/16 18:44 Piperacillin Sod/ Tazobactam Sod 1 ea 1 ea UD PRN N/A 05/21/16 18:45 06/20/16 18:44 Clindamycin Phosphate 300 mg/ Dextrose 52 ml @ 104 mls/hr Q8@04,12,20 IV 05/21/16 20:00 05/31/16 19:59 05/24/16 04:18 104 MLS/HR Piperacillin Sod/ Tazobactam Sod/ Dextrose (Zosyn Iv/D5 100ml) 115 ml @ 28.75 mls/ hr Q8H IV 05/22/16 00:00 06/01/16 00:00 05/24/16 07:57 28.75 MLS/HR Miscellaneous 1 ea 1 ea PRN PRN N/A 05/21/16 19:00 05/21/17 18:59 Vancomycin HCl/ Sodium Chloride (Vancomycin Inj/ Nss 250ml) 265 ml @ 125 mls/hr DAILY@0500 IV 05/23/16 05:00 06/04/16 07:08 05/24/16 05:17 125 MLS/HR Objective Vital Signs Date Time Temp Pulse Resp B/P Pulse Ox O2 Delivery O2 Flow Rate FiO2 05/24/16 08:20 36.4 72 18 151/83 100 Nasal Cannula 4.0 05/24/16 00:41 36.6 69 18 147/87 98 Room Air 05/24/16 00:00 Room Air 05/23/16 20:53 69 125/61 98 Room Air 05/23/16 20:00 Room Air 05/23/16 16:00 Nasal Cannula 2.0 05/23/16 15:31 36.6 70 18 95 Room Air Physical Exam General Appearance: no apparent distress, + pertinent finding (O2 supplementation on 3L) Eyes: normal inspection, PERRL ENT: hearing grossly normal, + pertinent finding (right-sided facial swelling noted- significantly improved ) Neck: supple Respiratory/Chest: lungs clear, no respiratory distress, no accessory muscle use Cardiovascular: regular rate, rhythm, + systolic murmur Abdomen: normal bowel sounds, non tender, soft Extremities: no pedal edema, no calf tenderness Neurologic/Psychiatric: alert, + disoriented (secondary to baseline dementia ) Skin: warm/dry, no rash, + cyanosis (bilateral upper extremity digits ) Laboratory Results Last 24 Hours Test 05/23/16 10:30 05/24/16 08:15 White Blood Count 17.57 K/uL 11.51 K/uL Red Blood Count 5.36 M/uL 5.91 M/uL Hemoglobin 12.6 g/dL 13.5 g/dL Hematocrit 39.5 % 43.0 % Mean Corpuscular Volume 73.7 fL 72.8 fL Mean Corpuscular Hemoglobin 23.5 pg 22.8 pg Mean Corpuscular Hemoglobin Concent 31.9 g/dl 31.4 g/dl RDW Standard Deviation 67.2 fL 67.9 fL RDW Coefficient of Variation 25.0 % 25.5 % Platelet Count 176 K/uL 186 K/uL Assessment and Plan 85 y/o female, with PMHx of CAD s/p CABG in 2003 and left circumflex stent in 2011, paroxysmal a.fib, tachy-precious syndrome s/o pacemaker, hypothyroidism, HTN , hyperlipidemia, and depression, who presented to the ED because of right- sided facial swelling x2 days Right-sided parotitis: - Admit to med/surg - IV Zosyn + Clindamycin + IV Vancomycin (started on 05/21) x14 day treatment -- Clindamycin d/c'd on 05/24 due resistance -- IV Zosyn d/c'd due to starting IV Primaxin on 05/24 - IV NSS @ 75 ml/hr - IV 0.5 mg Morphine q3 hrs and Tylenol PRN for pain management - Parotid culture- growing Staph aureus - Per family, pureed diet at [facility]--> aspiration precautions - Follow CBC UTI, h/o ESBL: - Pharmacy recommending switching to IV Primaxin due to h/o ESBL and d/c'ing IV Zosyn (05/24) - UCx pending CAD s/p CABG in 2003 and left circumflex stent in 2011/paroxysmal a.fib/tachy- precious syndrome s/o pacemaker/HTN: - Continue Imdur 30 mg QAM, Lasix 20 mg daily, Eliquis 2.5 mg BID, Metoprolol 25 mg BID, Sotalol 120 mg BID, Entresto 1 tab BID, Potassium supplement CKD, stage III- stable: - IVF as above - Follow PRP Elevated LFT - improved Hyperlipidemia: Continue Lipitor 40 mg HS Hypothyroidism: Continue Synthroid 25 mcg daily Depression: Continue Paxil 20 mg QAM GI Prophylaxis: Maalox PRN, IV Zofran PRN, Colace and/or Milk of Mag PRN DVT prophylaxis: Eliquis, BETH and SCDs Code Status: LEVEL V, DNR Dispo: Resident of [facility]
[2016-05-24 09:23] LABS: ALB/GLOB RATIO 0.6 (0.9-2); ALKALINE PHOSPHATASE 113 U/L (45-117); ALT/SGPT 39 U/L (12-78); BLOOD UREA NITROGEN 27 mg/dl (7-18); BUN/CREATININE RATIO 27.1 (10-20); CALCIUM 8.5 mg/dl (8.5-10.1); CARBON DIOXIDE 24 mmol/L (21-32); CHLORIDE 109 mmol/L (98-107); GLUCOSE 70 mg/dl (70-99); SODIUM 142 mmol/L (136-145)
[2016-05-24 10:13] LABS: POTASSIUM 3.5 mmol/L (3.5-5.1)
[2016-05-24 10:34] VITALS: O2SAT 100
[2016-05-24] MEDS: SODIUM CHLORIDE 0.9% 1000ML 1,000 ML IV SCH ×2 (11:05→20:59)
[2016-05-24] MEDS ORDERED: IMIPENEM/CILASTATIN CONSULT ACTIVE PRN (12:00)
[2016-05-24] MEDS: IMIPENEM/CILASTATIN IV 500 MG in D5W 100ML IV SCH ×2 (12:28→20:53)
[2016-05-24 15:51] VITALS: BP 139/88; PULSE 70; TEMP 36.4; O2SAT 91
[2016-05-24 16:00] VITALS: O2SAT 91
[2016-05-24 20:55] VITALS: BP 158/98; PULSE 71
[2016-05-24] MEDS: ATORVASTATIN 40 MG TAB PO SCH (20:58)
[2016-05-25] VITALS: BP 146/89; PULSE 70; TEMP 36.8; O2SAT 92
[2016-05-25] MEDS: IMIPENEM/CILASTATIN IV 500 MG in D5W 100ML IV SCH ×3 (03:49→22:06)
[2016-05-25] MEDS ORDERED: VANCOMYCIN TROUGH SCH (04:30)
[2016-05-25 04:32] LABS: HEMATOCRIT 38.2 % (37-47); MEAN CELL VOLUME 71.9 fL (80-100); MEAN CORPUSCULAR HEMOGLOBIN 23.5 pg (25-34); MEAN CORPUSCULAR HGB CONC 32.7 g/dl (32-36); PLATELET COUNT 175 K/uL (130-400); RED BLOOD COUNT 5.31 M/uL (4.2-5.4); WHITE BLOOD COUNT 7.69 K/uL (4.8-10.8)
[2016-05-25 04:50] LABS: BUN/CREATININE RATIO 18.6 (10-20); CREATININE 1.1 mg/dl (0.60-1.20); MAGNESIUM 1.6 mg/dl (1.8-2.4); POTASSIUM 3.4 mmol/L (3.5-5.1)
[2016-05-25] MEDS: VANCOMYCIN INJ 750 MG in SODIUM CHLORIDE 0.9% 250ML 250 ML IV SCH ×2 (05:29→12:38)
[2016-05-25] MEDS: LEVOTHYROXINE 25 MCG TAB PO SCH (06:02)
[2016-05-25] MEDS: SODIUM CHLORIDE 0.9% 1000ML 1,000 ML IV SCH (07:13)
--- NOTE | 2016-05-25 07:19 | Hospitalist Progress Note ---
Hospitalist Progress Note Date of Service May 25, 2016. Subjective Pt evaluation today including: conversation w/ patient, physical exam, chart review, lab review, review of studies, review of inpatient medication list Voiding: incontinence Patient complains of right-sided mild facial pain. ROS limited secondary to baseline dementia: denies any significant pain, CP, SOB, abdominal pain. Spoke with nursing staff- family was at bedside yesterday and told nurse that patient is at mental status baseline. She continues to eat very little (ongoing problem at [facility] per family). Patient does have difficulty with swallowing. Nursing staff denies any significant acute changes. Medications Current Inpatient Medications Medications (Trade) Dose Ordered Sig/Uzair Route Start Time Stop Time Status Last Admin Dose Admin Acetaminophen (Tylenol Tab) 650 mg Q4H PRN PO 05/21/16 15:45 06/20/16 15:44 05/23/16 12:52 650 MG Al Hydrox/Mg Hydrox/Simethicone (Maalox Max Susp) 15 ml Q4H PRN PO 05/21/16 15:45 06/20/16 15:44 Magnesium Hydroxide (Milk Of Magnesia Susp) 30 ml Q6H PRN PO 05/21/16 15:45 06/20/16 15:44 Polyethylene (Miralax Powder Packet) 17 gm DAILY PRN PO 05/21/16 15:45 06/20/16 15:44 Ondansetron HCl (Zofran Inj) 4 mg Q6H PRN IV 05/21/16 15:45 06/20/16 15:44 Apixaban (Eliquis Tab) 2.5 mg BID PO 05/21/16 21:00 06/20/16 20:59 05/25/16 08:02 2.5 MG Atorvastatin Calcium (Lipitor Tab) 40 mg HS PO 05/21/16 21:00 06/20/16 20:59 05/24/16 20:58 40 MG Furosemide (Lasix Tab) 20 mg DAILY PO 05/22/16 09:00 06/21/16 08:59 05/25/16 08:03 20 MG Isosorbide Mononitrate (Imdur Ext Rel Tab) 30 mg QAM PO 05/22/16 09:00 06/21/16 08:59 05/25/16 08:05 30 MG Levothyroxine Sodium (Synthroid Tab) 25 mcg DAILYBB PO 05/22/16 06:30 06/21/16 06:59 05/24/16 06:36 25 MCG Metoprolol Tartrate (Lopressor Tab) 25 mg BID PO 05/21/16 21:00 06/20/16 20:59 05/25/16 08:04 25 MG Oxybutynin Chloride (Ditropan-Xl Tab) 10 mg QAM PO 05/22/16 09:00 06/21/16 08:59 05/25/16 08:04 10 MG Paroxetine HCl (pAXil TAB) 20 mg QAM PO 05/22/16 09:00 06/21/16 08:59 05/25/16 08:03 20 MG Ranitidine HCl (zANTac TAB) 150 mg QAM PO 05/22/16 09:00 06/21/16 08:59 05/25/16 08:05 150 MG Sacubitril/ Valsartan (Entresto 24-26 Mg) 1 tab Q12 PO 05/21/16 21:00 06/20/16 20:59 05/25/16 08:04 1 TAB Sotalol HCl (Betapace Tab) 120 mg BID PO 05/21/16 21:00 06/20/16 20:59 05/25/16 08:03 120 MG Potassium Chloride 20 meq 20 meq DAILY PO 05/22/16 09:00 06/21/16 08:59 05/25/16 08:05 20 MEQ Sodium Chloride (Nss 1000ml) 1,000 ml @ 100 mls/hr Q10H IV 05/21/16 15:45 06/20/16 15:44 05/25/16 07:13 100 MLS/HR Morphine Sulfate (MoRPHine SULFATE INJ) 0.5 mg Q3H PRN IV 05/21/16 15:45 06/04/16 15:44 05/21/16 19:28 0.5 MG Miscellaneous 1 ea 1 ea PRN PRN N/A 05/21/16 19:00 05/21/17 18:59 Imipenem/ Cilastatin Sodium/ Dextrose (Primaxin Iv/D5 100ml) 110 ml @ 110 mls/hr Q8H IV 05/24/16 12:00 06/03/16 11:59 05/25/16 03:49 110 MLS/HR Imipenem/ Cilastatin Sodium (Consult) 1 ea UD PRN N/A 05/24/16 12:00 06/23/16 11:59 Vancomycin HCl 1 ea 1 ea UD PRN N/A 05/23/16 05:00 06/22/16 04:59 Vancomycin HCl/ Sodium Chloride (Vancomycin Inj/ Nss 250ml) 265 ml @ 125 mls/hr Q20H IV 05/25/16 13:00 06/04/16 07:08 Docusate Sodium (coLACE SYRUP) 100 mg BID PRN PO 05/25/16 10:15 06/24/16 10:14 UNV Objective Vital Signs Date Time Temp Pulse Resp B/P Pulse Ox O2 Delivery O2 Flow Rate FiO2 05/25/16 00:00 36.8 70 18 146/89 92 4.0 05/25/16 00:00 Nasal Cannula 4.0 05/24/16 20:55 71 158/98 05/24/16 16:00 91 Nasal Cannula 4.0 05/24/16 15:51 36.4 70 16 139/88 91 4.0 05/24/16 10:34 100 Nasal Cannula 3.0 05/24/16 08:20 36.4 72 18 151/83 100 Nasal Cannula 4.0 05/24/16 08:00 Nasal Cannula 3.0 Physical Exam General Appearance: no apparent distress, + pertinent finding (O2 supplement- 4L) Eyes: normal inspection, PERRL ENT: hearing grossly normal Neck: supple Respiratory/Chest: no respiratory distress, no accessory muscle use, + decreased breath sounds (throughout all lung [place] ) Cardiovascular: regular rate, rhythm, + JVD, + systolic murmur Abdomen: normal bowel sounds, non tender, soft Extremities: no pedal edema, no calf tenderness, + pertinent finding (SCDs on ) Neurologic/Psychiatric: alert Skin: normal color, warm/dry, no rash Laboratory Results Last 24 Hours Test 05/24/16 08:15 05/24/16 09:40 05/25/16 04:25 White Blood Count 11.51 K/uL 7.69 K/uL Red Blood Count 5.91 M/uL 5.31 M/uL Hemoglobin 13.5 g/dL 12.5 g/dL Hematocrit 43.0 % 38.2 % Mean Corpuscular Volume 72.8 fL 71.9 fL Mean Corpuscular Hemoglobin 22.8 pg 23.5 pg Mean Corpuscular Hemoglobin Concent 31.4 g/dl 32.7 g/dl RDW Standard Deviation 67.9 fL 66.7 fL RDW Coefficient of Variation 25.5 % 25.5 % Platelet Count 186 K/uL 175 K/uL Sodium Level 142 mmol/L 143 mmol/L Potassium Level mmol/L 3.5 mmol/L 3.4 mmol/L Chloride Level 109 mmol/L 110 mmol/L Carbon Dioxide Level 24 mmol/L 26 mmol/L Anion Gap 9.0 mmol/L 7.0 mmol/L Blood Urea Nitrogen 27 mg/dl 20 mg/dl Creatinine 1.00 mg/dl 1.10 mg/dl Est Creatinine Clear Calc Drug Dose 39.7 ml/min 36.1 ml/min Estimated GFR () 59.9 53.4 Estimated GFR (Non- 51.7 46.1 BUN/Creatinine Ratio 27.1 18.6 Random Glucose 70 mg/dl 130 mg/dl Calcium Level 8.5 mg/dl 8.0 mg/dl Total Bilirubin 1.3 mg/dl Aspartate Amino Transf (AST/SGOT) U/L 43 U/L Alanine Aminotransferase (ALT/SGPT) 39 U/L Alkaline Phosphatase 113 U/L Total Protein 6.2 gm/dl Albumin 2.2 gm/dl Globulin 4.0 gm/dl Albumin/Globulin Ratio 0.6 Magnesium Level 1.6 mg/dl Vancomycin Level Trough 11.8 mcg/ml Assessment and Plan 85 y/o female, with PMHx of CAD s/p CABG in 2004 and left circumflex stent in 2011, paroxysmal a.fib, tachy-precious syndrome s/o pacemaker, hypothyroidism, HTN , hyperlipidemia, and depression, who presented to the ED because of right- sided facial swelling x2 days Right-sided parotitis: - Admit to med/surg - IV Zosyn + Clindamycin + IV Vancomycin (started on 05/21) x14 day treatment -- Clindamycin d/c'd on 05/24 due resistance -- IV Zosyn d/c'd due to starting IV Primaxin on 05/24 - IV NSS @ 100 ml/hr- d/c'd on 05/25 - IV 0.5 mg Morphine q3 hrs and Tylenol PRN for pain management - Parotid culture- growing Staph aureus - Per family, pureed diet at [facility]--> aspiration precautions - Follow CBC - Consulted ID, appreciate recommendations - Consulted Oromaxillofacial surgeon, appreciate recommendations UTI, h/o ESBL: - Pharmacy recommending switching to IV Primaxin due to h/o ESBL and d/c'ing IV Zosyn (05/24) - UCx pending CAD s/p CABG in 2003 and left circumflex stent in 2011/paroxysmal a.fib/tachy- precious syndrome s/o pacemaker/HTN: - Continue Imdur 30 mg QAM, Eliquis 2.5 mg BID, Metoprolol 25 mg BID, Sotalol 120 mg BID, Entresto 1 tab BID - PO Lasix 20 mg to IV Lasix 10 mg daily Increasing O2 supplement demand: - h/o CHF- ECHO 04/2015- 1. Normal left ventricular size, thickness. 2. LVEF approximately 55%. 3. Anteroseptal, septal, and inferoseptal hypokinesis. 4. Right ventricle appears enlarged with normal function. 5. Pacemaker lead visualized. 6. Severe tricuspid regurgitation. 7. Mild aortic stenosis with PORFIRIO 1cm2, low mean gradient < 10mmHg. 8. Biatrial dilatation. - Continue O2 protocol, wean as tolerated - Check CXR for fluid overload on 05/25- Mild stable cardiomegaly. Chronic change. No acute process. - IVF d/c'd Difficulty w/ swallowing: - Consult speech therapy- recommending liquid diet - Will try to limit PO medications CKD, stage III- stable: - IVF - Follow PRP Mild hypomagnesemia of 1/6 on 05/25: - IV mag 1 gm x1 dose - Follow mag level, replace PRN Mild hypokalemia of 3.4 on 05/25: - Replete with KCL 20 mEq PO x1 - Follow PRP, replace PRN w/ IV potassium Elevated LFT - improved Hyperlipidemia: Hold Lipitor 40 mg HS due to difficulty with swallowing Hypothyroidism: Synthroid 25 mcg daily to IV Synthroid 12.5 daily Depression: Continue Paxil 20 mg QAM GERD: Hold Zantac, IV Protonix daily GI Prophylaxis: Maalox PRN, IV Zofran PRN, Colace and/or Milk of Mag PRN DVT prophylaxis: Eliquis, BETH and SCDs Code Status: LEVEL V, DNR Dispo: Resident of [facility]
[2016-05-25 07:25] VITALS: BP 170/91; PULSE 70; TEMP 36.3; O2SAT 94
[2016-05-25] MEDS ORDERED: MAGNESIUM SULFATE 1GM / D5W 1 GM in PREMIXED IN D5W 100 ML IV ONE (07:30)
[2016-05-25] MEDS: APIXABAN 2.5 MG TAB PO SCH ×2 (08:02→22:07)
[2016-05-25] MEDS: DOCUSATE SODIUM 100 MG CAP PO SCH (08:02)
[2016-05-25] MEDS: FUROSEMIDE 20 MG TAB PO SCH (08:03)
[2016-05-25] MEDS: SOTALOL HCL 80 MG TAB PO SCH ×2 (08:03→22:07)
[2016-05-25] MEDS: PAROXETINE 20 MG TAB PO SCH (08:03)
[2016-05-25] MEDS: OXYBUTYNIN CHLORIDE 5 MG TABCR PO SCH (08:04)
[2016-05-25] MEDS: SACUBITRIL-VALSARTAN 24-26 MG TAB PO SCH ×2 (08:04→22:08)
[2016-05-25] MEDS: METOPROLOL TARTRATE 25 MG TAB PO SCH ×2 (08:04→22:08)
[2016-05-25] MEDS: POTASSIUM CHLORIDE 20 MEQ TABCR PO SCH (08:05)
[2016-05-25] MEDS: ISOSORBIDE MONONITRATE 30 MG TABCR PO SCH (08:05)
[2016-05-25] MEDS: RANITIDINE HCL 150 MG TAB PO SCH (08:05)
[2016-05-25] MEDS ORDERED: POTASSIUM CHLORIDE 20 MEQ TABCR PO SCH (09:00)
[2016-05-25] MEDS ORDERED: MAGNESIUM OXIDE 400 MG TAB PO SCH (09:00)
--- NOTE | 2016-05-25 09:27 | Pharmacy Progress Note ---
Pharmacy Antibiotic Prog Note Date of Service May 25, 2016. Subjective The patient is currently receiving vancomycin 750 mg IV every 24 hours. The patient is currently on day # 4 of IV therapy. Objective Height (Feet): 5 Height (Inches): 4.00 Weight (Kilograms): 68.000 Levels: Item Value Date Time Vancomycin Level Trough 11.8 mcg/ml 05/25/16 0425 Lab Results (24hrs): Laboratory Tests Test 05/25/16 04:25 BUN/Creatinine Ratio 18.6 Blood Urea Nitrogen 20 mg/dl Creatinine 1.10 mg/dl White Blood Count 7.69 K/uL Micro Results: RUN DATE: 05/24/16 [facility] LAB PAGE 1 RUN TIME: 1256 Specimen Inquiry PATIENT: JOSESITO DANIEL LOC: C.MS2W U # : [id number] AGE/SX: 85/F ROOM: [facility] REG : 05/24/[address]: Marky Flores MD, PhD : 1930 BED: 1 DIS : STATUS: ADM IN TLOC: SPEC #: [id number] AZIZA: 05/21/16 STATUS: RES REQ #: [id number] RECD: 05/21/[address]: Umesh Killian DO SOURCE: ASP-OTHER ENTR: 05/21/[address]: Nik[facility] Fuentes [facility] MONTRELL Vang ORDERED: AER/ERIBERTO CULTSMR COMMENTS: Has Specimen Been Obtained/Collected? Y Procedure Result Verified Site GRAM STAIN Final 05/22/16 RESULT MANY GRAM POSITIVE COCCI RARE WBCs SEEN OR AER/ERIBERTO CULT Preliminary 05/24/16-1256 Organism 1 STAPHYLOCOCCUS AUREUS QUANITY MANY SENS SENSITIVITY TO FOLLOW ANAS NO ANAEROBES ISOLATED. SENSITIVITY RESULT INDICATES A METHICILLIN RESISTANT STAPH. AUREUS. PHONED TO LISSETH MADRID 2W, IC ANS. MACHINE ON 05/23/16 AT 0745 BY Akshat Kitchen. Results were verbalized back to ELAINA. 1. STAPHYLOCOCCUS AUREUS Target Route Dose RX AB Cost M.I.C. IQ ------ ----- ------ -- ------ -------- - ------ TRIMET/SULFA S <=0.5/ 9.5 * OXACILLIN R * >2 VANCOMYCIN S 2 ERYTHROMYCIN R >4 TETRACYCLINE S <=4 CLINDAMYCIN R <=0.5 DAPTOMYCIN S <=0.5 RIFAMPIN S <=1 S = SENSITIVE I = INTERMEDIATE R = RESISTANT Assessment & Plan ASSESSMENT: * Ms Daniel is an 85 y/o F admitted on 05/21/2016 with right sided parotitis. The culture from the aspirate has grown MRSA with an BORA of 2 mcg/mL. She is currently on vancomycin for the parotitis and Primaxin for possible UTI. She has a history of ESBL E coli which has grown at least twice. * The patient remains afebrile currently and her leukocytosis has resolved. She denies pain and difficulty swallowing according to nursing documentation. PLAN: This drug level is: Subtherapeutic Change to vancomycin 750 mg IV every 20 hours. (the first dose of the new dose with start approximately 6 hours after the previous dose when it is believed the patient will drop to be therapeutic. A shortened interval should produce an increased trough) Goal peak level estimate: between 35 - 40 mcg/mL. Goal trough level estimate: between 15 - 20 mcg/mL (indication: MRSA parotitis) . Trough has been ordered for: prior to 0500 dose. THIS WILL NOT BE A STEADY STATE TROUGH. This will help to indicate where patient is during treatment. Pharmacy will continue to follow and will adjust dose/frequency as necessary. Thank you
[2016-05-25] MEDS ORDERED: DOCUSATE SODIUM 100 MG/10 ML UDC PO PRN (10:15)
--- NOTE | 2016-05-25 10:55 | Medical Consult ---
Consultation Date of Consultation: May 25, 2016. Attending Physician: Marky Flores MD, PhD Reason for Consultation: On Primaxin History of Present Illness Patient is an 85 yo female who presented to the ED with complaints of right sided facial swelling and pain coming from [place]. The patient states that she has not been experiencing any N/V/D, sore throat, SOB, chest pain, or urinary symptoms, but she had noted pain with eating, right-sided cheek pain, and right-sided jaw pain and swelling. The patient does wear dentures and states that her dentures have been irritating her cheeks recently. She has not been evaluated by her dentist in regards to her denture irritation. Since admission, the patient had a CT scan of the face which showed marked enlargement and edema of the right parotid gland with surrounding facial edema consistent likely with parotiditis. She was placed on IV Vancomycin and IV Zosyn initially. The patient also is noted to have history of recurrent UTI. She is noted to have history of ESBL producing E. Coli UTI on 04/15/16 and also history of Pseudomonas UTI in June 2015 upon further review of her records. Her UA showed 2+ bacteria, small Leukocyte esterase, and pyuria. She was therefore changed from IV Zosyn to IV Primaxin pending culture results. Culture from parotid mass aspirate is growing MRSA resistant to Clindamycin and Erythromycin as well. Her WBC count on admission was 23.07 and has trended downward to 7.69 today. Creatinine is stable at 1.10. Past Medical/Surgical History Medical Problems: (1) Abnormal WBC count Status: Acute (2) Altered mental status Status: Acute (3) Chest pain Status: Acute (4) Fall Status: Acute (5) Fall with no significant injury Status: Acute (6) Fracture, humerus, proximal Status: Acute (7) Generalized weakness Status: Acute (8) Hematoma of right chest wall Status: Acute (9) Hematoma of right thigh Status: Acute (10) Hypertension Status: Acute (11) Parotitis Status: Acute (12) Rib contusion Status: Acute (13) Supratherapeutic INR Status: Acute (14) Syncope Status: Acute (15) TIA (transient ischemic attack) Status: Acute (16) TIA (transient ischemic attack) Status: Acute (17) UTI (urinary tract infection) Status: Acute (18) Weakness Status: Acute Medical Problems: (1) Benign hypertension (2) CHEST PAIN, CAD (3) CHEST PAIN, CAD (4) Compression fracture of vertebral column (5) Depression (6) FRACTURE L HUMERUS, CAD, FALL (7) Implantation of cardiac pacemaker (8) Parotitis (9) Quadruple cardiac bypass (10) SYNCOPE,CAD (11) TIA, CAD, DEPRESSION Family History Heart disease Noncontributory secondary to age Noncontributory Social History Smoking Status: Unknown if Ever Smoked Marital Status: Housing Status: [facility] Occupation Status: unemployed Allergies Coded Allergies: Metronidazole (Verified Allergy, Intermediate, flu-like symptoms, 03/14/16) Tetracycline (Verified Allergy, Mild, TONGUE PEELS, 03/14/16) Nitrofurantoin (Verified Allergy, Unknown, flu like symptoms, 03/14/16) Home Medications Reported Home Medications Medications Dose Route/Sig Max Daily Dose Days Date Category K-Tab (Potassium Chloride) 20 Meq Tab 20 Meq PO DAILY 05/21/16 Reported Entresto 24-26 mg (Sacubitril-Valsartan) 1 Tab Tab 1 Tab PO Q12 05/21/16 Reported Lipitor (Atorvastatin Calcium) 40 Mg Tab 40 Mg PO HS 05/21/16 Reported Eliquis (Apixaban) 2.5 Mg Tab 2.5 Mg PO BID 05/21/16 Reported Synthroid (Levothyroxine Sodium) 25 Mcg Tab 25 Mcg PO DAILY 05/21/16 Reported Lasix (Furosemide) 20 Mg Tab 20 Mg PO DAILY 05/21/16 Reported Betapace (Sotalol Hcl) 120 Mg Tab 120 Mg PO BID 05/21/16 Reported Zantac (Ranitidine HCl) 150 Mg Tab 150 Mg PO QAM 05/21/16 Reported Paxil (Paroxetine HCl) 20 Mg Tab 20 Mg PO QAM 05/21/16 Reported Ditropan Xl (Oxybutynin Chloride) 10 Mg Tab 10 Mg PO QAM 05/21/16 Reported Malakoff 3 (Malakoff-3 Fatty Acids) 1 Cap Cap 1 Cap PO QAM 05/21/16 Reported Lopressor (Metoprolol Tartrate) 25 Mg Tab 25 Mg PO BID 05/21/16 Reported Imdur Ext Rel (Isosorbide Mononitrate) 30 Mg Tabcr 1 Tab PO QAM 05/21/16 Reported Colace (Docusate Sodium) 100 Mg Cap 2 Cap PO QAM 05/21/16 Reported Cranberry (Cranberry (Vaccinium Macrocarp) 250 Mg Cap 250 Mg PO BID 05/21/16 Reported Current Inpatient Medications Current Inpatient Medications Medications (Trade) Dose Ordered Sig/Uzair Route Start Time Stop Time Status Last Admin Dose Admin Acetaminophen (Tylenol Tab) 650 mg Q4H PRN PO 05/21/16 15:45 06/20/16 15:44 05/23/16 12:52 650 MG Al Hydrox/Mg Hydrox/Simethicone (Maalox Max Susp) 15 ml Q4H PRN PO 05/21/16 15:45 06/20/16 15:44 Magnesium Hydroxide (Milk Of Magnesia Susp) 30 ml Q6H PRN PO 05/21/16 15:45 06/20/16 15:44 Polyethylene (Miralax Powder Packet) 17 gm DAILY PRN PO 05/21/16 15:45 06/20/16 15:44 Ondansetron HCl (Zofran Inj) 4 mg Q6H PRN IV 05/21/16 15:45 06/20/16 15:44 Apixaban (Eliquis Tab) 2.5 mg BID PO 05/21/16 21:00 06/20/16 20:59 05/25/16 08:02 2.5 MG Atorvastatin Calcium (Lipitor Tab) 40 mg HS PO 05/21/16 21:00 06/20/16 20:59 05/24/16 20:58 40 MG Furosemide (Lasix Tab) 20 mg DAILY PO 05/22/16 09:00 06/21/16 08:59 05/25/16 08:03 20 MG Isosorbide Mononitrate (Imdur Ext Rel Tab) 30 mg QAM PO 05/22/16 09:00 06/21/16 08:59 05/25/16 08:05 30 MG Levothyroxine Sodium (Synthroid Tab) 25 mcg DAILYBB PO 05/22/16 06:30 06/21/16 06:59 05/24/16 06:36 25 MCG Metoprolol Tartrate (Lopressor Tab) 25 mg BID PO 05/21/16 21:00 06/20/16 20:59 05/25/16 08:04 25 MG Oxybutynin Chloride (Ditropan-Xl Tab) 10 mg QAM PO 05/22/16 09:00 06/21/16 08:59 05/25/16 08:04 10 MG Paroxetine HCl (pAXil TAB) 20 mg QAM PO 05/22/16 09:00 06/21/16 08:59 05/25/16 08:03 20 MG Ranitidine HCl (zANTac TAB) 150 mg QAM PO 05/22/16 09:00 06/21/16 08:59 05/25/16 08:05 150 MG Sacubitril/ Valsartan (Entresto 24-26 Mg) 1 tab Q12 PO 05/21/16 21:00 06/20/16 20:59 05/25/16 08:04 1 TAB Sotalol HCl (Betapace Tab) 120 mg BID PO 05/21/16 21:00 06/20/16 20:59 05/25/16 08:03 120 MG Potassium Chloride (Klor-Con Tab) 20 meq DAILY PO 05/22/16 09:00 06/21/16 08:59 05/25/16 08:05 20 MEQ Morphine Sulfate (MoRPHine SULFATE INJ) 0.5 mg Q3H PRN IV 05/21/16 15:45 06/04/16 15:44 05/21/16 19:28 0.5 MG Miscellaneous 1 ea 1 ea PRN PRN N/A 05/21/16 19:00 05/21/17 18:59 Imipenem/ Cilastatin Sodium/ Dextrose (Primaxin Iv/D5 100ml) 110 ml @ 110 mls/hr Q8H IV 05/24/16 12:00 06/03/16 11:59 05/25/16 03:49 110 MLS/HR Imipenem/ Cilastatin Sodium (Consult) 1 ea UD PRN N/A 05/24/16 12:00 06/23/16 11:59 Vancomycin HCl 1 ea 1 ea UD PRN N/A 05/23/16 05:00 06/22/16 04:59 Vancomycin HCl/ Sodium Chloride (Vancomycin Inj/ Nss 250ml) 265 ml @ 125 mls/hr Q20H IV 05/25/16 13:00 06/04/16 07:08 Docusate Sodium (coLACE SYRUP) 100 mg BID PRN PO 05/25/16 10:15 06/24/16 10:14 Review of Systems Constitutional: + fatigue, + weakness, No chills, No sweats Eyes: No worsening of vision ENT: + dental problems (irritation from dentures), + problem reported (mouth pain, pain with eating on right side. Right jaw/cheek swelling), No hearing loss , No sore throat Respiratory: No cough, No shortness of breath Cardiovascular: No chest pain Abdomen: No diarrhea, No pain Musculoskeletal: No joint pain Genitourinary - Female: No dysuria Integumentary: No color change, No itch, No rash Physical Exam Date Time Temp Pulse Resp B/P Pulse Ox O2 Delivery O2 Flow Rate FiO2 05/25/16 08:00 Nasal Cannula 4.0 05/25/16 07:25 36.3 70 20 170/91 94 4.0 05/25/16 00:00 36.8 70 18 146/89 92 4.0 05/25/16 00:00 Nasal Cannula 4.0 05/24/16 20:55 71 158/98 05/24/16 16:00 91 Nasal Cannula 4.0 05/24/16 15:51 36.4 70 16 139/88 91 4.0 General Appearance: no apparent distress, + thin Head: normocephalic, atraumatic Eyes: normal inspection ENT: + pertinent finding (edema noted of the right jaw and tenderness of the right jaw/cheek down into her neck) Neck: supple, + pertinent finding (patient has head tilted back) Respiratory/Chest: no respiratory distress, no accessory muscle use, + decreased breath sounds Cardiovascular: regular rate, rhythm, + systolic murmur Abdomen/GI: normal bowel sounds, non tender, soft Extremities/Musculoskelatal: normal inspection, no pedal edema Neurologic/Psych: alert, normal mood/affect Skin: normal color, warm/dry, no rash Laboratory Results CT FACIAL BONES-MXILLOFAC WITHOUT CT DOSE: 603.21 mGy.cm CLINICAL HISTORY: right facial swelling COMPARISON STUDY: No previous studies for comparison. The examination is limited as no intravenous contrast was administered. TECHNIQUE: Helical images were acquired in the transverse plane. The study was reviewed and analyzed on the independent 3-D workstation. The pterygoid plates appear intact. The zygomatic arches appear intact. The globes appear intact. There is no evidence of orbital emphysema. The orbital humphrey and floor appear intact. There is opacification of a right-sided mastoid air cell. There is right-sided facial edema. There is enlargement of the right parotid gland. The findings likely represent a parotiditis. Clinical correlation is advocated. The mandibular condyles appear intact. IMPRESSION: 1. Marked enlargement and edema of the right parotid gland with surrounding right facial edema. On a statistical basis the findings are secondary to a parotiditis. Clinical correlation follow-up is recommended. If CT follow-up is contemplated, this should be performed with intravenous contrast. RUN DATE: 05/24/16 [facility] LAB PAGE 1 RUN TIME: 1256 Specimen Inquiry PATIENT: JOSESITO DANIEL LOC: C.MS2W U # : [id number] AGE/SX: 85/F ROOM: [facility] REG : 05/24/[address]: Marky Flores MD, PhD : 1930 BED: 1 DIS : STATUS: ADM IN TLOC: SPEC #: [id number] AZIZA: 05/21/16 STATUS: RES REQ #: [id number] RECD: 05/21/[address]: Umesh Killian DO SOURCE: ASP-OTHER ENTR: 05/21/[address] [facility] [address]: Nikki Fuentes SPDESC: MONTRELL Vang ORDERED: AER/ERIBERTO CULTSMR COMMENTS: Has Specimen Been Obtained/Collected? Y Procedure Result Verified Site GRAM STAIN Final 05/22/16 RESULT MANY GRAM POSITIVE COCCI RARE WBCs SEEN OR AER/ERIBERTO CULT Preliminary 05/24/16-1256 Organism 1 STAPHYLOCOCCUS AUREUS QUANITY MANY SENS SENSITIVITY TO FOLLOW ANAS NO ANAEROBES ISOLATED. SENSITIVITY RESULT INDICATES A METHICILLIN RESISTANT STAPH. AUREUS. PHONED TO LISSETH MADRID 2W, SOLARBRUSH ANS. MACHINE ON 05/23/16 AT 0745 BY Akshat Kitchen. Results were verbalized back to ELAINA. 1. STAPHYLOCOCCUS AUREUS Target Route Dose RX AB Cost M.I.C. IQ ------ ----- ------ -- ------ -------- - ------ TRIMET/SULFA S <=0.5/ 9.5 * OXACILLIN R * >2 VANCOMYCIN S 2 ERYTHROMYCIN R >4 TETRACYCLINE S <=4 CLINDAMYCIN R <=0.5 DAPTOMYCIN S <=0.5 RIFAMPIN S <=1 S = SENSITIVE I = INTERMEDIATE R = RESISTANT Item Value Date Time Urine Culture Received 05/24/16 0000 Urine,Catheterized Pending MRSA DNA Surveillance Screen - Final Complete 05/22/16 0000 Nasal Specimen Positive for MRSA by DNA Probe Gram Stain - Final Resulted 05/21/16 1330 Aspirate - Other Parotid Mass - Right Last 24 Hours Test 05/25/16 04:25 White Blood Count 7.69 K/uL Red Blood Count 5.31 M/uL Hemoglobin 12.5 g/dL Hematocrit 38.2 % Mean Corpuscular Volume 71.9 fL Mean Corpuscular Hemoglobin 23.5 pg Mean Corpuscular Hemoglobin Concent 32.7 g/dl RDW Standard Deviation 66.7 fL RDW Coefficient of Variation 25.5 % Platelet Count 175 K/uL Sodium Level 143 mmol/L Potassium Level 3.4 mmol/L Chloride Level 110 mmol/L Carbon Dioxide Level 26 mmol/L Anion Gap 7.0 mmol/L Blood Urea Nitrogen 20 mg/dl Creatinine 1.10 mg/dl Est Creatinine Clear Calc Drug Dose 36.1 ml/min Estimated GFR () 53.4 Estimated GFR (Non- 46.1 BUN/Creatinine Ratio 18.6 Random Glucose 130 mg/dl Calcium Level 8.0 mg/dl Magnesium Level 1.6 mg/dl Vancomycin Level Trough 11.8 mcg/ml Assessment & Plan Patient with infectious parotiditis with MRSA and possible UTI. She is currently on IV Vancomycin and Primaxin. Overall, her labs have improved despite the patient states that her pain has not really improved. Feel that her right cheek infection is likely secondary to chronic denture irritation. Will continue broad spectrum abx until urine culture is available. We will continue to follow and adjust abx when able. PROVIDER ADDENDUM: Patient examined and reviewed with Ms. Alvarez. Agree with above assessment.
--- NOTE | 2016-05-25 11:00 | DIAGNOSTIC IMAGING REPORT ---
CHEST ONE VIEW PORTABLE CLINICAL HISTORY: worsening SOB, ?CHF exacerbation dyspnea COMPARISON STUDY: 05/21/2016 FINDINGS: Mild stable cardia megaly. Diaphragms smooth. Lungs remain clear. IMPRESSION: Mild stable cardiomegaly. Chronic change. No acute process. Electronically signed by: Jerry Villafuerte M.D. 05/25/2016 10:58 AM Dictated Date/Time: 05/25/2016 10:58 AM
--- NOTE | 2016-05-25 12:49 | Clinical Documentation Query ---
CLINICAL DOCUMENTATION QUERY Ms. SILVERIO, In your clinical opinion is this patient being managed for: ( X ) Chronic diastolic CHF ( ) Other explanation of clinical findings (Please Explain) ( ) Unable to determine (Please Define) ( ) Need to Discuss ( ) Not Agree The medical record reflects the following clinical findings, treatment, and risk factors. Clinical Indicators: Progress note 05/25 indicates pt with a hx of CHF and ECHO from 04/2015 with EF 55% Treatment:chronic lasix, imdur, lopressor, entresto, betapace Risk Factors: age, CAD, HTN, A fib, Please clarify and document your clinical opinion in the progress notes and discharge summary. Terms such as "probable", "suspected", "likely", "questionable", "possible", or "still to be ruled out" are acceptable. IF IN AGREEMENT, YOU MUST DOCUMENT ABOVE DIAGNOSTIC STATEMENT IN DAILY PROGRESS NOTES AND DISCHARGE SUMMARY. This document is not part of the patient's record. Thank You, Daily Gu, BELLE [phone]
--- NOTE | 2016-05-25 12:50 | Clinical Documentation Query ---
CLINICAL DOCUMENTATION QUERY Dr. COLES, In your clinical opinion is this patient being managed for: ( x ) Chronic diastolic CHF ( ) Other explanation of clinical findings (Please Explain) ( ) Unable to determine (Please Define) ( ) Need to Discuss ( ) Not Agree The medical record reflects the following clinical findings, treatment, and risk factors. Clinical Indicators: Progress note 05/25 indicates pt with a hx of CHF and ECHO from 04/2015 with EF 55% Treatment:chronic lasix, imdur, lopressor, entresto, betapace Risk Factors: age, CAD, HTN, A fib, Please clarify and document your clinical opinion in the progress notes and discharge summary. Terms such as "probable", "suspected", "likely", "questionable", "possible", or "still to be ruled out" are acceptable. IF IN AGREEMENT, YOU MUST DOCUMENT ABOVE DIAGNOSTIC STATEMENT IN DAILY PROGRESS NOTES AND DISCHARGE SUMMARY. This document is not part of the patient's record. Thank You, Daily Gu RN [phone]
[2016-05-25 15:50] VITALS: BP 153/90; PULSE 69; TEMP 36.2; O2SAT 90
[2016-05-25 16:10] VITALS: O2SAT 90
[2016-05-25] MEDS: ACETAMINOPHEN 325 MG TAB PO PRN (17:37)
[2016-05-25] MEDS: MAGNESIUM OXIDE 400 MG TAB PO SCH (22:06)
[2016-05-25 23:09] VITALS: BP 137/88; PULSE 71; TEMP 36.5; O2SAT 91
[2016-05-26] MEDS: IMIPENEM/CILASTATIN IV 500 MG in D5W 100ML IV SCH (03:26)
[2016-05-26 07:46] VITALS: PULSE 82; TEMP 36.6; O2SAT 92
[2016-05-26 08:01] LABS: HEMATOCRIT 42.4 % (37-47); MEAN CELL VOLUME 73.1 fL (80-100); MEAN CORPUSCULAR HEMOGLOBIN 23.6 pg (25-34); MEAN CORPUSCULAR HGB CONC 32.3 g/dl (32-36); PLATELET COUNT 195 K/uL (130-400); WHITE BLOOD COUNT 7.52 K/uL (4.8-10.8)
[2016-05-26] MEDS: ISOSORBIDE MONONITRATE 30 MG TABCR PO SCH (08:06)
[2016-05-26] MEDS: VANCOMYCIN INJ 750 MG in SODIUM CHLORIDE 0.9% 250ML 250 ML IV SCH (08:06)
[2016-05-26] MEDS: METOPROLOL TARTRATE 25 MG TAB PO SCH ×2 (08:07→22:21)
[2016-05-26] MEDS: SACUBITRIL-VALSARTAN 24-26 MG TAB PO SCH ×2 (08:07→22:21)
[2016-05-26] MEDS: APIXABAN 2.5 MG TAB PO SCH ×2 (08:09→22:22)
[2016-05-26] MEDS: SOTALOL HCL 80 MG TAB PO SCH ×2 (08:09→22:20)
[2016-05-26] MEDS: MAGNESIUM OXIDE 400 MG TAB PO SCH ×2 (08:09→22:19)
[2016-05-26] MEDS: PAROXETINE 20 MG TAB PO SCH (08:10)
[2016-05-26] MEDS: OXYBUTYNIN CHLORIDE 5 MG TABCR PO SCH (08:10)
[2016-05-26 08:19] LABS: BUN/CREATININE RATIO 17.5 (10-20); CALCIUM 8.6 mg/dl (8.5-10.1); CREATININE 1.1 mg/dl (0.60-1.20); POTASSIUM 3.8 mmol/L (3.5-5.1)
[2016-05-26] MEDS ORDERED: FUROSEMIDE INJ 10 MG in SYRINGE 0 ML IV SCH (09:00)
[2016-05-26] MEDS: LEVOTHYROXINE SODIUM INJ 12.5 MCG in SYRINGE 0 ML IV SCH (10:07)
[2016-05-26] MEDS: PANTOprazole INJ 40 MG in SYRINGE 0 ML IV SCH (10:07)
[2016-05-26 10:12] VITALS: BP 143/84; PULSE 71
--- NOTE | 2016-05-26 11:40 | Hospitalist Progress Note ---
Hospitalist Progress Note Date of Service May 26, 2016. Subjective Pt evaluation today including: conversation w/ patient, conversation w/ family , physical exam, chart review, lab review, review of studies, review of inpatient medication list Voiding: incontinence Patient is resting in bed peacefully- no signs of acute distress. Will open eyes when calling name. Mumbles. ROS cannot be obtained due to patient status. Son/[id number]-ql-jzo present. Very understanding with current situation. Patient has been slowly declining over the last couple of months. Palliative care consult pending. Medications Current Inpatient Medications Medications (Trade) Dose Ordered Sig/Uzair Route Start Time Stop Time Status Last Admin Dose Admin Acetaminophen (Tylenol Tab) 650 mg Q4H PRN PO 05/21/16 15:45 06/20/16 15:44 05/25/16 17:37 650 MG Al Hydrox/Mg Hydrox/Simethicone (Maalox Max Susp) 15 ml Q4H PRN PO 05/21/16 15:45 06/20/16 15:44 Magnesium Hydroxide (Milk Of Magnesia Susp) 30 ml Q6H PRN PO 05/21/16 15:45 06/20/16 15:44 Polyethylene (Miralax Powder Packet) 17 gm DAILY PRN PO 05/21/16 15:45 06/20/16 15:44 Ondansetron HCl (Zofran Inj) 4 mg Q6H PRN IV 05/21/16 15:45 06/20/16 15:44 Apixaban (Eliquis Tab) 2.5 mg BID PO 05/21/16 21:00 06/20/16 20:59 05/26/16 08:09 2.5 MG Atorvastatin Calcium (Lipitor Tab) 40 mg HS PO 05/21/16 21:00 06/20/16 20:59 Future Hold 05/24/16 20:58 40 MG Furosemide (Lasix Tab) 20 mg DAILY PO 05/22/16 09:00 06/21/16 08:59 Future Hold 05/25/16 08:03 20 MG Isosorbide Mononitrate (Imdur Ext Rel Tab) 30 mg QAM PO 05/22/16 09:00 06/21/16 08:59 05/26/16 08:06 30 MG Levothyroxine Sodium (Synthroid Tab) 25 mcg DAILYBB PO 05/22/16 06:30 06/21/16 06:59 Future Hold 05/24/16 06:36 25 MCG Metoprolol Tartrate (Lopressor Tab) 25 mg BID PO 05/21/16 21:00 06/20/16 20:59 05/26/16 08:07 25 MG Oxybutynin Chloride (Ditropan-Xl Tab) 10 mg QAM PO 05/22/16 09:00 06/21/16 08:59 05/26/16 08:10 10 MG Paroxetine HCl (pAXil TAB) 20 mg QAM PO 05/22/16 09:00 06/21/16 08:59 05/26/16 08:10 20 MG Ranitidine HCl (zANTac TAB) 150 mg QAM PO 05/22/16 09:00 06/21/16 08:59 Future Hold 05/25/16 08:05 150 MG Sacubitril/ Valsartan (Entresto 24-26 Mg) 1 tab Q12 PO 05/21/16 21:00 06/20/16 20:59 05/26/16 08:07 1 TAB Sotalol HCl (Betapace Tab) 120 mg BID PO 05/21/16 21:00 06/20/16 20:59 05/26/16 08:09 120 MG Morphine Sulfate (MoRPHine SULFATE INJ) 0.5 mg Q3H PRN IV 05/21/16 15:45 06/04/16 15:44 05/21/16 19:28 0.5 MG Miscellaneous (Iv Fluids Completed) 1 ea PRN PRN N/A 05/21/16 19:00 05/21/17 18:59 Vancomycin HCl 1 ea 1 ea UD PRN N/A 05/23/16 05:00 06/22/16 04:59 Vancomycin HCl/ Sodium Chloride (Vancomycin Inj/ Nss 250ml) 265 ml @ 125 mls/hr Q20H IV 05/25/16 13:00 06/04/16 07:08 05/26/16 08:06 125 MLS/HR Docusate Sodium 100 mg 100 mg BID PRN PO 05/25/16 10:15 06/24/16 10:14 Furosemide 10 mg/ Syringe 1 ml @ 4 mls/min DAILY IV 05/26/16 09:00 06/25/16 08:59 05/26/16 08:05 4 MLS/MIN Levothyroxine Sodium 12.5 mcg/ Syringe 0.625 ml @ 2 mls/min DAILY@09 IV 05/26/16 09:00 06/25/16 08:59 05/26/16 10:07 2 MLS/MIN Pantoprazole Sodium/Syringe (Protonix Inj/ Syringe) 10 ml @ 5 mls/min DAILY@11 IV 05/26/16 11:00 06/25/16 10:59 05/26/16 10:07 5 MLS/MIN Magnesium Oxide (Mag-Ox Tab) 400 mg BID PO 05/25/16 21:00 06/24/16 20:59 05/26/16 08:09 400 MG Objective Vital Signs Date Time Temp Pulse Resp B/P Pulse Ox O2 Delivery O2 Flow Rate FiO2 05/26/16 10:12 71 143/84 05/26/16 08:10 Nasal Cannula 4.0 05/26/16 07:46 36.6 82 20 92 Nasal Cannula 4.0 05/25/16 23:32 Nasal Cannula 4.0 05/25/16 23:09 36.5 71 18 137/88 91 Nasal Cannula 4.0 05/25/16 16:10 90 Nasal Cannula 4.0 05/25/16 15:50 36.2 69 20 153/90 90 Nasal Cannula 4.0 Physical Exam General Appearance: no apparent distress Eyes: PERRL ENT: hearing grossly normal Neck: supple Respiratory/Chest: no respiratory distress, no accessory muscle use Cardiovascular: regular rate, rhythm Abdomen: normal bowel sounds, non tender, soft Extremities: no pedal edema, no calf tenderness Skin: normal color, no rash, + pertinent finding (skin cool to touch ) Laboratory Results Last 24 Hours Test 05/26/16 07:32 White Blood Count 7.52 K/uL Red Blood Count 5.80 M/uL Hemoglobin 13.7 g/dL Hematocrit 42.4 % Mean Corpuscular Volume 73.1 fL Mean Corpuscular Hemoglobin 23.6 pg Mean Corpuscular Hemoglobin Concent 32.3 g/dl RDW Standard Deviation 68.3 fL RDW Coefficient of Variation 25.8 % Platelet Count 195 K/uL Sodium Level 142 mmol/L Potassium Level 3.8 mmol/L Chloride Level 110 mmol/L Carbon Dioxide Level 25 mmol/L Anion Gap 7.0 mmol/L Blood Urea Nitrogen 19 mg/dl Creatinine 1.10 mg/dl Est Creatinine Clear Calc Drug Dose 36.1 ml/min Estimated GFR () 53.4 Estimated GFR (Non- 46.1 BUN/Creatinine Ratio 17.5 Random Glucose 95 mg/dl Calcium Level 8.6 mg/dl Magnesium Level 2.0 mg/dl Assessment and Plan 85 y/o female, with PMHx of CAD s/p CABG in 2003 and left circumflex stent in 2011, paroxysmal a.fib, tachy-precious syndrome s/o pacemaker, hypothyroidism, HTN , hyperlipidemia, and depression, who presented to the ED because of right- sided facial swelling x2 days Right-sided parotitis: - Admit to med/surg - IV Zosyn + Clindamycin + IV Vancomycin (started on 05/21) x14 day treatment -- Clindamycin d/c'd on 05/24 due resistance -- IV Zosyn d/c'd due to starting IV Primaxin on 05/24 - IV NSS @ 100 ml/hr- restart IVF at 50 ml/hr on 05/26 due to very little fluid intake - IV 0.5 mg Morphine q3 hrs and Tylenol PRN for pain management - Parotid culture- growing Staph aureus - Follow CBC - Consulted ID, appreciate recommendations - Consulted Oromaxillofacial surgeon, appreciate recommendations -- No intervention at this time -- Spoke with son, ENT f/u outpt if complications arise will be needed UTI, h/o ESBL: - Pharmacy recommending switching to IV Primaxin due to h/o ESBL and d/c'ing IV Zosyn (05/24) - UCx- NGTD CAD s/p CABG in 2003 and left circumflex stent in 2011/paroxysmal a.fib/tachy- precious syndrome s/o pacemaker/HTN: - Continue Imdur 30 mg QAM, Eliquis 2.5 mg BID, Metoprolol 25 mg BID, Sotalol 120 mg BID, Entresto 1 tab BID - PO Lasix 20 mg to IV Lasix 10 mg daily- hold Lasix on 05/26 due to little PO intake and IVF treatment Increasing O2 supplement demand: - h/o chronic diastolic CHF- ECHO 04/2015- 1. Normal left ventricular size, thickness. 2. LVEF approximately 55%. 3. Anteroseptal, septal, and inferoseptal hypokinesis. 4. Right ventricle appears enlarged with normal function. 5. Pacemaker lead visualized. 6. Severe tricuspid regurgitation. 7. Mild aortic stenosis with PORFIRIO 1cm2, low mean gradient < 10mmHg. 8. Biatrial dilatation. - Continue O2 protocol, wean as tolerated -- Spoke w/ son, patient was requiring more and more periodic O2 supplement at [facility] over the last couple of months - Check CXR for fluid overload on 05/25- Mild stable cardiomegaly. Chronic change. No acute process. Difficulty w/ swallowing: - Consult speech therapy- recommending liquid diet - Will try to limit PO medications CKD, stage III- stable: - IVF - Follow PRP Mild hypomagnesemia of 1/6 on 05/25- resolved: - IV mag 1 gm x1 dose - Follow mag level, replace PRN Mild hypokalemia of 3.4 on 05/25- resolved: - Replete with KCL 20 mEq PO x1 - Follow PRP, replace PRN w/ IV potassium Elevated LFT - improved Hyperlipidemia: Hold Lipitor 40 mg HS due to difficulty with swallowing Hypothyroidism: Synthroid 25 mcg daily to IV Synthroid 12.5 daily Depression: Continue Paxil 20 mg QAM GERD: Hold Zantac, IV Protonix daily GI Prophylaxis: Maalox PRN, IV Zofran PRN, Colace and/or Milk of Mag PRN DVT prophylaxis: Simi, BETH and SCDs Code Status: LEVEL V, DNR Dispo: - Resident of [facility] - Had a long discussion with son today- considering palliative care but would like sister to be present during conversation/decision. Sister is from out of state and driving in today. All will be present tomorrow (05/27) around noon for discussion w/ aidee - PT/OT evaluations
--- NOTE | 2016-05-26 12:54 | Palliative Care Progress Note ---
Palliative Care Progress Note Date of Service May 26, 2016. Subjective Spoke with patient's daughter, Oxana, on phone. Meeting with patient's family scheduled tomorrow at noon at family's request.
--- NOTE | 2016-05-26 13:51 | Infectious Disease Progress Nt ---
Progress Note Date of Service May 26, 2016. Subjective Pt evaluation today including: conversation w/ patient, physical exam, chart review, lab review, review of studies, conversation w/ [facility] consultant (pharmacy), review of inpatient medication list Patient continues to complain of not feeling well today. She does however state that her right jaw pain is slightly improved. She overall does make very good conversation. She moans intermittently during exam. Her white blood cell count today was 7.52. Her creatinine has been stable at 1.10 today. Her urine culture a showing no growth. She is currently on IV Primaxin and vancomycin. All Other Systems: Reviewed and Negative Medications Current Inpatient Medications Medications (Trade) Dose Ordered Sig/Uzair Route Start Time Stop Time Status Last Admin Dose Admin Acetaminophen (Tylenol Tab) 650 mg Q4H PRN PO 05/21/16 15:45 06/20/16 15:44 05/25/16 17:37 650 MG Al Hydrox/Mg Hydrox/Simethicone (Maalox Max Susp) 15 ml Q4H PRN PO 05/21/16 15:45 06/20/16 15:44 Magnesium Hydroxide (Milk Of Magnesia Susp) 30 ml Q6H PRN PO 05/21/16 15:45 06/20/16 15:44 Polyethylene (Miralax Powder Packet) 17 gm DAILY PRN PO 05/21/16 15:45 06/20/16 15:44 Ondansetron HCl (Zofran Inj) 4 mg Q6H PRN IV 05/21/16 15:45 06/20/16 15:44 Apixaban (Eliquis Tab) 2.5 mg BID PO 05/21/16 21:00 06/20/16 20:59 05/26/16 08:09 2.5 MG Atorvastatin Calcium (Lipitor Tab) 40 mg HS PO 05/21/16 21:00 06/20/16 20:59 Future Hold 05/24/16 20:58 40 MG Furosemide (Lasix Tab) 20 mg DAILY PO 05/22/16 09:00 06/21/16 08:59 Future Hold 05/25/16 08:03 20 MG Isosorbide Mononitrate (Imdur Ext Rel Tab) 30 mg QAM PO 05/22/16 09:00 06/21/16 08:59 05/26/16 08:06 30 MG Levothyroxine Sodium (Synthroid Tab) 25 mcg DAILYBB PO 05/22/16 06:30 06/21/16 06:59 Future Hold 05/24/16 06:36 25 MCG Metoprolol Tartrate (Lopressor Tab) 25 mg BID PO 05/21/16 21:00 06/20/16 20:59 05/26/16 08:07 25 MG Oxybutynin Chloride (Ditropan-Xl Tab) 10 mg QAM PO 05/22/16 09:00 06/21/16 08:59 05/26/16 08:10 10 MG Paroxetine HCl (pAXil TAB) 20 mg QAM PO 05/22/16 09:00 06/21/16 08:59 05/26/16 08:10 20 MG Ranitidine HCl (zANTac TAB) 150 mg QAM PO 05/22/16 09:00 06/21/16 08:59 Future Hold 05/25/16 08:05 150 MG Sacubitril/ Valsartan (Entresto 24-26 Mg) 1 tab Q12 PO 05/21/16 21:00 06/20/16 20:59 05/26/16 08:07 1 TAB Sotalol HCl (Betapace Tab) 120 mg BID PO 05/21/16 21:00 06/20/16 20:59 05/26/16 08:09 120 MG Morphine Sulfate (MoRPHine SULFATE INJ) 0.5 mg Q3H PRN IV 05/21/16 15:45 06/04/16 15:44 05/21/16 19:28 0.5 MG Miscellaneous (Iv Fluids Completed) 1 ea PRN PRN N/A 05/21/16 19:00 05/21/17 18:59 Vancomycin HCl 1 ea 1 ea UD PRN N/A 05/23/16 05:00 06/22/16 04:59 Vancomycin HCl/ Sodium Chloride (Vancomycin Inj/ Nss 250ml) 265 ml @ 125 mls/hr Q20H IV 05/25/16 13:00 06/04/16 07:08 05/26/16 08:06 125 MLS/HR Docusate Sodium 100 mg 100 mg BID PRN PO 05/25/16 10:15 06/24/16 10:14 Furosemide 10 mg/ Syringe 1 ml @ 4 mls/min DAILY IV 05/26/16 09:00 06/25/16 08:59 Future Hold 05/26/16 08:05 4 MLS/MIN Levothyroxine Sodium 12.5 mcg/ Syringe 0.625 ml @ 2 mls/min DAILY@09 IV 05/26/16 09:00 06/25/16 08:59 05/26/16 10:07 2 MLS/MIN Pantoprazole Sodium/Syringe (Protonix Inj/ Syringe) 10 ml @ 5 mls/min DAILY@11 IV 05/26/16 11:00 06/25/16 10:59 05/26/16 10:07 5 MLS/MIN Magnesium Oxide 400 mg 400 mg BID PO 05/25/16 21:00 06/24/16 20:59 05/26/16 08:09 400 MG Sodium Chloride (Nss 1000ml) 1,000 ml @ 50 mls/hr Q20H IV 05/26/16 11:30 06/25/16 11:29 Objective Vital Signs Date Time Temp Pulse Resp B/P Pulse Ox O2 Delivery O2 Flow Rate FiO2 05/26/16 10:12 71 143/84 05/26/16 08:10 Nasal Cannula 4.0 05/26/16 07:46 36.6 82 20 92 Nasal Cannula 4.0 05/25/16 23:32 Nasal Cannula 4.0 05/25/16 23:09 36.5 71 18 137/88 91 Nasal Cannula 4.0 05/25/16 16:10 90 Nasal Cannula 4.0 05/25/16 15:50 36.2 69 20 153/90 90 Nasal Cannula 4.0 Physical Exam General Appearance: + mild distress, + thin Eyes: normal inspection ENT: hearing grossly normal, + pertinent finding (decreased right jaw tenderness to palpatoin. Edema appears slightly improved. ) Neck: trachea midline Respiratory/Chest: no respiratory distress, no accessory muscle use Cardiovascular: regular rate, rhythm Neurologic/Psychiatric: alert, + disoriented Skin: normal color, warm/dry Laboratory Results Item Value Date Time Urine Culture - Final Complete 05/24/16 0000 Urine,Catheterized NO GROWTH - LESS THAN 1,000 COLONIES/ML MRSA DNA Surveillance Screen - Final Complete 05/22/16 0000 Nasal Specimen Positive for MRSA by DNA Probe Gram Stain - Final Complete 05/21/16 1330 Aspirate - Other Parotid Mass - Right Last 24 Hours Test 05/26/16 07:32 White Blood Count 7.52 K/uL Red Blood Count 5.80 M/uL Hemoglobin 13.7 g/dL Hematocrit 42.4 % Mean Corpuscular Volume 73.1 fL Mean Corpuscular Hemoglobin 23.6 pg Mean Corpuscular Hemoglobin Concent 32.3 g/dl RDW Standard Deviation 68.3 fL RDW Coefficient of Variation 25.8 % Platelet Count 195 K/uL Sodium Level 142 mmol/L Potassium Level 3.8 mmol/L Chloride Level 110 mmol/L Carbon Dioxide Level 25 mmol/L Anion Gap 7.0 mmol/L Blood Urea Nitrogen 19 mg/dl Creatinine 1.10 mg/dl Est Creatinine Clear Calc Drug Dose 36.1 ml/min Estimated GFR () 53.4 Estimated GFR (Non- 46.1 BUN/Creatinine Ratio 17.5 Random Glucose 95 mg/dl Calcium Level 8.6 mg/dl Magnesium Level 2.0 mg/dl Assessment and Plan Patient with infectious parotiditis with MRSA. She is currently on IV Vancomycin and Primaxin. Urine cultures showing no growth to date. Therefore, will DC Primaxin. Continue IV vancomycin. If patient continues to improve in regards to her parotiditis symptoms, she likely could transition to p.o. Bactrim. We will continue to follow. PROVIDER ADDENDUM: Patient reviewed with Ms. Alvarez. Agree with above assessment.
[2016-05-26] MEDS: SODIUM CHLORIDE 0.9% 1000ML 1,000 ML IV SCH (14:27)
[2016-05-26 15:40] VITALS: BP 153/105; PULSE 77; TEMP 36.6; O2SAT 91
[2016-05-27] VITALS: O2SAT 100
[2016-05-27 00:24] VITALS: BP 145/90; PULSE 69; TEMP 36.7; O2SAT 100
[2016-05-27] MEDS ORDERED: VANCOMYCIN TROUGH SCH (04:30)
[2016-05-27 04:46] LABS: HEMATOCRIT 40.4 % (37-47); MEAN CELL VOLUME 72.9 fL (80-100); MEAN CORPUSCULAR HEMOGLOBIN 23.6 pg (25-34); MEAN CORPUSCULAR HGB CONC 32.4 g/dl (32-36); PLATELET COUNT 190 K/uL (130-400); RED BLOOD COUNT 5.54 M/uL (4.2-5.4); WHITE BLOOD COUNT 6.93 K/uL (4.8-10.8)
[2016-05-27] MEDS: VANCOMYCIN INJ 750 MG in SODIUM CHLORIDE 0.9% 250ML 250 ML IV SCH (05:00)
[2016-05-27 05:22] LABS: BUN/CREATININE RATIO 17.9 (10-20); CALCIUM 8.4 mg/dl (8.5-10.1)
[2016-05-27 07:15] VITALS: BP 155/92; PULSE 73; TEMP 36.7; O2SAT 90
[2016-05-27] MEDS: OXYBUTYNIN CHLORIDE 5 MG TABCR PO SCH (08:13)
[2016-05-27] MEDS: SOTALOL HCL 80 MG TAB PO SCH ×2 (08:14→20:25)
[2016-05-27] MEDS: SACUBITRIL-VALSARTAN 24-26 MG TAB PO SCH ×2 (08:14→20:25)
[2016-05-27] MEDS: APIXABAN 2.5 MG TAB PO SCH ×2 (08:14→20:25)
[2016-05-27] MEDS: ISOSORBIDE MONONITRATE 30 MG TABCR PO SCH (08:15)
[2016-05-27] MEDS: PAROXETINE 20 MG TAB PO SCH (08:15)
[2016-05-27] MEDS: MAGNESIUM OXIDE 400 MG TAB PO SCH ×2 (08:15→20:25)
[2016-05-27] MEDS: SODIUM CHLORIDE 0.9% 1000ML 1,000 ML IV SCH (08:16)
--- NOTE | 2016-05-27 10:10 | Pharmacy Progress Note ---
Pharmacy Antibiotic Prog Note Date of Service May 27, 2016. Subjective The patient is currently receiving the following antimicrobial agents per Pharmacy consult: Vancomycin 750 mg IV every 20 hours Objective Height (Feet): 5 Height (Inches): 4.00 Weight (Kilograms): 68.000 Levels: Item Value Date Time Vancomycin Level Trough 20.3 mcg/ml 05/27/16 0420 Lab Results (24hrs): Laboratory Tests Test 05/27/16 04:20 BUN/Creatinine Ratio 17.9 Blood Urea Nitrogen 18 mg/dl Creatinine 1.00 mg/dl White Blood Count 6.93 K/uL Micro Results: RUN DATE: 05/26/16 [facility] PAGE 1 RUN TIME: 1214 Specimen Inquiry PATIENT: JOSESITO DANIEL LOC: [id number] U # : [id number] AGE/SX: 85/F ROOM: [facility] REG : 05/24/[address]: Marky Flores MD, PhD : [id number] BED: 1 DIS : STATUS: ADM IN TLOC: SPEC #: [id number] AZIZA: 05/21/16 STATUS: COMP REQ #: [id number] RECD: 05/21/[address]: Umesh Killian DO SOURCE: ASP-OTHER ENTR: 05/21/[address]: Nikki Fuentes SPDESC: MONTRELL Vang ORDERED: AER/ERIBERTO CULTSMR COMMENTS: Has Specimen Been Obtained/Collected? Y Procedure Result Verified Site GRAM STAIN Final 05/22/16-920 RESULT MANY GRAM POSITIVE COCCI RARE WBCs SEEN OR AER/ERIBERTO CULT Final 05/26/16-1214 Organism 1 STAPHYLOCOCCUS AUREUS QUANITY MANY SENS SENSITIVITY TO FOLLOW ANAS NO ANAEROBES ISOLATED. SENSITIVITY RESULT INDICATES A METHICILLIN RESISTANT STAPH. AUREUS. PHONED TO LISSETH MADRID 2W, IC Seguricel. MACHINE ON 05/23/16 AT 0745 BY Akshat Kitchen. Results were verbalized back to ELAINA. 1. STAPHYLOCOCCUS AUREUS Target Route Dose RX AB Cost M.I.C. IQ ------ ----- ------ -- ------ -------- - ------ TRIMET/SULFA S <=0.5/ 9.5 * OXACILLIN R * >2 VANCOMYCIN S 2 ERYTHROMYCIN R >4 TETRACYCLINE S <=4 CLINDAMYCIN R <=0.5 DAPTOMYCIN S <=0.5 RIFAMPIN S <=1 S = SENSITIVE I = INTERMEDIATE R = RESISTANT Assessment & Plan Assessment 85 year old female with h/o of ESBL E.coli (04/15/16) and Pseudomonas UTI receiving Vancomycin IV for treatment of MRSA parotitis. Day # 07/28 of antimicrobial therapy Plan Vancomycin IV * Trough level of 20.3 mcg/mL is therapeutic. Of note, current dose is not at steady state thus vanc level may increase further. * Goal trough level for parotitis: 15 to 20 mcg/mL (aim for closer to 20 mcg/mL due to Vanc BORA of 2 mcg/mL) * Continue dose of 750 mg IV every 20 hours for now and order repeat trough level for 05/28/16 pm. Dose will be at steady state at this time. * Will discuss possible switch to Bactrim liquid with provider since patient is showing signs of improvement (WBC normalized, afebrile). Patient is taking PO medications, however, physician notes mention difficulty swallowing. Pharmacy will continue to follow and will adjust dose/frequency as necessary. Thank you
[2016-05-27] MEDS: METOPROLOL TARTRATE 25 MG TAB PO SCH ×2 (10:19→20:25)
[2016-05-27] MEDS: PANTOprazole INJ 40 MG in SYRINGE 0 ML IV SCH (10:19)
[2016-05-27] MEDS: LEVOTHYROXINE SODIUM INJ 12.5 MCG in SYRINGE 0 ML IV SCH (10:19)
[2016-05-27 10:45] VITALS: O2SAT 95
--- NOTE | 2016-05-27 10:46 | Infectious Disease Progress Nt ---
Progress Note Date of Service May 27, 2016. Subjective Pt evaluation today including: conversation w/ patient, physical exam, chart review, lab review, review of studies, conversation w/ outbound sales consultant (pharmacy), review of inpatient medication list WBC count stable at 6.93 today. Patient states that she is feeling a little better. Continued irritation with her dentures in this morning, but she feels that her mouth pain is less. Creatinine also stable at 1.00. No N/V/D. All Other Systems: Reviewed and Negative Medications Current Inpatient Medications Medications (Trade) Dose Ordered Sig/Uzair Route Start Time Stop Time Status Last Admin Dose Admin Acetaminophen (Tylenol Tab) 650 mg Q4H PRN PO 05/21/16 15:45 06/20/16 15:44 05/25/16 17:37 650 MG Al Hydrox/Mg Hydrox/Simethicone (Maalox Max Susp) 15 ml Q4H PRN PO 05/21/16 15:45 06/20/16 15:44 Magnesium Hydroxide (Milk Of Magnesia Susp) 30 ml Q6H PRN PO 05/21/16 15:45 06/20/16 15:44 Polyethylene (Miralax Powder Packet) 17 gm DAILY PRN PO 05/21/16 15:45 06/20/16 15:44 Ondansetron HCl (Zofran Inj) 4 mg Q6H PRN IV 05/21/16 15:45 06/20/16 15:44 Apixaban (Eliquis Tab) 2.5 mg BID PO 05/21/16 21:00 06/20/16 20:59 05/27/16 08:14 2.5 MG Atorvastatin Calcium (Lipitor Tab) 40 mg HS PO 05/21/16 21:00 06/20/16 20:59 Future Hold 05/24/16 20:58 40 MG Furosemide (Lasix Tab) 20 mg DAILY PO 05/22/16 09:00 06/21/16 08:59 Future Hold 05/25/16 08:03 20 MG Isosorbide Mononitrate (Imdur Ext Rel Tab) 30 mg QAM PO 05/22/16 09:00 06/21/16 08:59 05/27/16 08:15 30 MG Levothyroxine Sodium (Synthroid Tab) 25 mcg DAILYBB PO 05/22/16 06:30 06/21/16 06:59 Future Hold 05/24/16 06:36 25 MCG Metoprolol Tartrate (Lopressor Tab) 25 mg BID PO 05/21/16 21:00 06/20/16 20:59 05/27/16 10:19 25 MG Oxybutynin Chloride (Ditropan-Xl Tab) 10 mg QAM PO 05/22/16 09:00 06/21/16 08:59 05/27/16 08:13 10 MG Paroxetine HCl (pAXil TAB) 20 mg QAM PO 05/22/16 09:00 06/21/16 08:59 05/27/16 08:15 20 MG Ranitidine HCl (zANTac TAB) 150 mg QAM PO 05/22/16 09:00 06/21/16 08:59 Future Hold 05/25/16 08:05 150 MG Sacubitril/ Valsartan (Entresto 24-26 Mg) 1 tab Q12 PO 05/21/16 21:00 06/20/16 20:59 05/27/16 08:14 1 TAB Sotalol HCl (Betapace Tab) 120 mg BID PO 05/21/16 21:00 06/20/16 20:59 05/27/16 08:14 120 MG Morphine Sulfate (MoRPHine SULFATE INJ) 0.5 mg Q3H PRN IV 05/21/16 15:45 06/04/16 15:44 05/21/16 19:28 0.5 MG Miscellaneous (Iv Fluids Completed) 1 ea PRN PRN N/A 05/21/16 19:00 05/21/17 18:59 Vancomycin HCl 1 ea 1 ea UD PRN N/A 05/23/16 05:00 06/22/16 04:59 Vancomycin HCl/ Sodium Chloride (Vancomycin Inj/ Nss 250ml) 265 ml @ 125 mls/hr Q20H IV 05/25/16 13:00 06/04/16 07:08 05/27/16 05:00 125 MLS/HR Docusate Sodium 100 mg 100 mg BID PRN PO 05/25/16 10:15 06/24/16 10:14 Furosemide 10 mg/ Syringe 1 ml @ 4 mls/min DAILY IV 05/26/16 09:00 06/25/16 08:59 Future Hold 05/26/16 08:05 4 MLS/MIN Levothyroxine Sodium 12.5 mcg/ Syringe 0.625 ml @ 2 mls/min DAILY@09 IV 05/26/16 09:00 06/25/16 08:59 05/27/16 10:19 2 MLS/MIN Pantoprazole Sodium/Syringe (Protonix Inj/ Syringe) 10 ml @ 5 mls/min DAILY@11 IV 05/26/16 11:00 06/25/16 10:59 05/27/16 10:19 5 MLS/MIN Magnesium Oxide 400 mg 400 mg BID PO 05/25/16 21:00 06/24/16 20:59 05/27/16 08:15 400 MG Sodium Chloride (Nss 1000ml) 1,000 ml @ 50 mls/hr Q20H IV 05/26/16 11:30 06/25/16 11:29 05/27/16 08:16 50 MLS/HR Objective Vital Signs Date Time Temp Pulse Resp B/P Pulse Ox O2 Delivery O2 Flow Rate FiO2 05/27/16 07:15 36.7 73 17 155/92 90 Room Air 05/27/16 00:24 36.7 69 18 145/90 100 2.0 05/27/16 00:00 100 Nasal Cannula 4.0 05/26/16 15:40 36.6 77 20 153/105 91 Nasal Cannula 4.0 05/26/16 15:30 Nasal Cannula 4.0 Physical Exam General Appearance: no apparent distress, + thin Eyes: normal inspection, sclerae normal ENT: hearing grossly normal Neck: trachea midline, + pertinent finding (patient has head tilted back) Respiratory/Chest: no respiratory distress, no accessory muscle use Neurologic/Psychiatric: alert, normal mood/affect Skin: normal color, warm/dry, no rash Laboratory Results Last 24 Hours Test 05/27/16 04:20 05/27/16 09:00 White Blood Count 6.93 K/uL Red Blood Count 5.54 M/uL Hemoglobin 13.1 g/dL Hematocrit 40.4 % Mean Corpuscular Volume 72.9 fL Mean Corpuscular Hemoglobin 23.6 pg Mean Corpuscular Hemoglobin Concent 32.4 g/dl RDW Standard Deviation 68.0 fL RDW Coefficient of Variation 25.5 % Platelet Count 190 K/uL Sodium Level 141 mmol/L Potassium Level 4.0 mmol/L Chloride Level 108 mmol/L Carbon Dioxide Level 30 mmol/L Anion Gap 3.0 mmol/L Blood Urea Nitrogen 18 mg/dl Creatinine 1.00 mg/dl Est Creatinine Clear Calc Drug Dose 39.7 ml/min Estimated GFR () 59.9 Estimated GFR (Non- 51.7 BUN/Creatinine Ratio 17.9 Random Glucose 84 mg/dl Calcium Level 8.4 mg/dl Magnesium Level 2.0 mg/dl Chemistry Specimen Hemolysis Vancomycin Level Trough 20.3 mcg/ml Assessment and Plan Patient with infectious parotiditis with MRSA. She is currently on IV Vancomycin. She appears to be slightly improved today. Recommend continuing IV Vancomycin while in house, but likely could transition to PO Bactrim possibly in liquid form with swallowing problems when ready for discharge. She likely will need 1-2 more weeks of therapy. PROVIDER ADDENDUM: Patient reviewed with Ms. Alvarez. Agree with above assessment.
[2016-05-27 11:12] LABS: URINE APPEARANCE TURBID (CLEAR); URINE COLOR DK YELLOW; URINE EPITHELIAL CELL AUTO >30 /lpf (0-5); URINE NITRITE NEG (NEG); URINE PH 5.5 (4.5-7.5); URINE SPECIFIC GRAVITY 1.021 (1.000-1.030); UROBILINOGEN NEG (NEG)
[2016-05-27 11:14] LABS: MANUAL MICROSCOPIC REQUIRED? NO; REVIEW REQ? YES; URINE BILIRUBIN NEG (NEG)
--- NOTE | 2016-05-27 11:39 | Hospitalist Progress Note ---
Hospitalist Progress Note Date of Service May 27, 2016. Subjective Pt evaluation today including: conversation w/ patient, physical exam, chart review, lab review, review of inpatient medication list Patient appears more alert today. She is able to speak full sentences/follow commands. She denies any CP, SOB, abdominal discomfort, or significant pain. Per nursing staff, patient has been off O2 supplement all morning with saturations at 95%. Medications Current Inpatient Medications Medications (Trade) Dose Ordered Sig/Uzair Route Start Time Stop Time Status Last Admin Dose Admin Acetaminophen (Tylenol Tab) 650 mg Q4H PRN PO 05/21/16 15:45 06/20/16 15:44 05/25/16 17:37 650 MG Al Hydrox/Mg Hydrox/Simethicone (Maalox Max Susp) 15 ml Q4H PRN PO 05/21/16 15:45 06/20/16 15:44 Magnesium Hydroxide (Milk Of Magnesia Susp) 30 ml Q6H PRN PO 05/21/16 15:45 06/20/16 15:44 Polyethylene (Miralax Powder Packet) 17 gm DAILY PRN PO 05/21/16 15:45 06/20/16 15:44 Ondansetron HCl (Zofran Inj) 4 mg Q6H PRN IV 05/21/16 15:45 06/20/16 15:44 Apixaban (Eliquis Tab) 2.5 mg BID PO 05/21/16 21:00 06/20/16 20:59 05/27/16 08:14 2.5 MG Atorvastatin Calcium (Lipitor Tab) 40 mg HS PO 05/21/16 21:00 06/20/16 20:59 Future Hold 05/24/16 20:58 40 MG Furosemide (Lasix Tab) 20 mg DAILY PO 05/22/16 09:00 06/21/16 08:59 Future Hold 05/25/16 08:03 20 MG Isosorbide Mononitrate (Imdur Ext Rel Tab) 30 mg QAM PO 05/22/16 09:00 06/21/16 08:59 05/27/16 08:15 30 MG Levothyroxine Sodium (Synthroid Tab) 25 mcg DAILYBB PO 05/22/16 06:30 06/21/16 06:59 Future Hold 05/24/16 06:36 25 MCG Metoprolol Tartrate (Lopressor Tab) 25 mg BID PO 05/21/16 21:00 06/20/16 20:59 05/27/16 10:19 25 MG Oxybutynin Chloride (Ditropan-Xl Tab) 10 mg QAM PO 05/22/16 09:00 06/21/16 08:59 05/27/16 08:13 10 MG Paroxetine HCl (pAXil TAB) 20 mg QAM PO 05/22/16 09:00 06/21/16 08:59 05/27/16 08:15 20 MG Ranitidine HCl (zANTac TAB) 150 mg QAM PO 05/22/16 09:00 06/21/16 08:59 Future Hold 05/25/16 08:05 150 MG Sacubitril/ Valsartan (Entresto 24-26 Mg) 1 tab Q12 PO 05/21/16 21:00 06/20/16 20:59 05/27/16 08:14 1 TAB Sotalol HCl (Betapace Tab) 120 mg BID PO 05/21/16 21:00 06/20/16 20:59 05/27/16 08:14 120 MG Morphine Sulfate (MoRPHine SULFATE INJ) 0.5 mg Q3H PRN IV 05/21/16 15:45 06/04/16 15:44 05/21/16 19:28 0.5 MG Miscellaneous (Iv Fluids Completed) 1 ea PRN PRN N/A 05/21/16 19:00 05/21/17 18:59 Vancomycin HCl 1 ea 1 ea UD PRN N/A 05/23/16 05:00 06/22/16 04:59 Vancomycin HCl/ Sodium Chloride (Vancomycin Inj/ Nss 250ml) 265 ml @ 125 mls/hr Q20H IV 05/25/16 13:00 06/04/16 07:08 05/27/16 05:00 125 MLS/HR Docusate Sodium 100 mg 100 mg BID PRN PO 05/25/16 10:15 06/24/16 10:14 Furosemide 10 mg/ Syringe 1 ml @ 4 mls/min DAILY IV 05/26/16 09:00 06/25/16 08:59 Future Hold 05/26/16 08:05 4 MLS/MIN Levothyroxine Sodium 12.5 mcg/ Syringe 0.625 ml @ 2 mls/min DAILY@09 IV 05/26/16 09:00 06/25/16 08:59 05/27/16 10:19 2 MLS/MIN Pantoprazole Sodium/Syringe (Protonix Inj/ Syringe) 10 ml @ 5 mls/min DAILY@11 IV 05/26/16 11:00 06/25/16 10:59 05/27/16 10:19 5 MLS/MIN Magnesium Oxide 400 mg 400 mg BID PO 05/25/16 21:00 06/24/16 20:59 05/27/16 08:15 400 MG Sodium Chloride (Nss 1000ml) 1,000 ml @ 50 mls/hr Q20H IV 05/26/16 11:30 06/25/16 11:29 05/27/16 08:16 50 MLS/HR Objective Vital Signs Date Time Temp Pulse Resp B/P Pulse Ox O2 Delivery O2 Flow Rate FiO2 05/27/16 10:45 95 Room Air 05/27/16 07:15 36.7 73 17 155/92 90 Room Air 05/27/16 00:24 36.7 69 18 145/90 100 2.0 05/27/16 00:00 100 Nasal Cannula 4.0 05/26/16 15:40 36.6 77 20 153/105 91 Nasal Cannula 4.0 05/26/16 15:30 Nasal Cannula 4.0 Physical Exam General Appearance: no apparent distress, + pertinent finding (frail appearing ) Eyes: normal inspection, PERRL ENT: hearing grossly normal, + pertinent finding (right-sided facial swelling- improving ) Neck: supple Respiratory/Chest: lungs clear, no respiratory distress, no accessory muscle use Cardiovascular: regular rate, rhythm Abdomen: normal bowel sounds, non tender, soft Extremities: no pedal edema, no calf tenderness Neurologic/Psychiatric: alert, normal mood/affect Skin: normal color, warm/dry, no rash Laboratory Results Last 24 Hours Test 05/27/16 04:20 05/27/16 09:00 White Blood Count 6.93 K/uL Red Blood Count 5.54 M/uL Hemoglobin 13.1 g/dL Hematocrit 40.4 % Mean Corpuscular Volume 72.9 fL Mean Corpuscular Hemoglobin 23.6 pg Mean Corpuscular Hemoglobin Concent 32.4 g/dl RDW Standard Deviation 68.0 fL RDW Coefficient of Variation 25.5 % Platelet Count 190 K/uL Sodium Level 141 mmol/L Potassium Level 4.0 mmol/L Chloride Level 108 mmol/L Carbon Dioxide Level 30 mmol/L Anion Gap 3.0 mmol/L Blood Urea Nitrogen 18 mg/dl Creatinine 1.00 mg/dl Est Creatinine Clear Calc Drug Dose 39.7 ml/min Estimated GFR () 59.9 Estimated GFR (Non- 51.7 BUN/Creatinine Ratio 17.9 Random Glucose 84 mg/dl Calcium Level 8.4 mg/dl Magnesium Level 2.0 mg/dl Chemistry Specimen Hemolysis Vancomycin Level Trough 20.3 mcg/ml Urine Color DK YELLOW Urine Appearance TURBID Urine pH 5.5 Urine Specific [place] 1.021 Urine Protein 2+ Urine Glucose (UA) NEG Urine Ketones TRACE Urine Occult Blood TRACE Urine Nitrite NEG Urine Bilirubin NEG Urine Urobilinogen NEG Urine Leukocyte Esterase MODERATE Assessment and Plan 85 y/o female, with PMHx of CAD s/p CABG in 2003 and left circumflex stent in 2011, paroxysmal a.fib, tachy-precious syndrome s/o pacemaker, hypothyroidism, HTN , hyperlipidemia, and depression, who presented to the ED because of right- sided facial swelling x2 days Right-sided parotitis: - Admit to med/surg - IV Zosyn + Clindamycin + IV Vancomycin (started on 05/21) x14 day treatment -- Clindamycin d/c'd on 05/24 due resistance -- IV Zosyn d/c'd due to starting IV Primaxin on 05/24 -- Primaxin d/c'd on 05/26- continue IV Vancomycin while in house, ID recommends Bactrim for 1-2 more weeks at discharge - IV NSS @ 100 ml/hr- restart IVF at 50 ml/hr on 05/26 due to very little fluid intake - IV 0.5 mg Morphine q3 hrs and Tylenol PRN for pain management - Parotid culture- growing Staph aureus - Follow CBC - Consulted ID, appreciate recommendations - Consulted Oromaxillofacial surgeon, appreciate recommendations -- No intervention at this time -- Spoke with son, ENT f/u outpt if complications arise will be needed UTI, h/o ESBL: - Pharmacy recommending switching to IV Primaxin due to h/o ESBL and d/c'ing IV Zosyn (05/24) -- d/c'd on 05/26 by ID - UCx- NGTD CAD s/p CABG in 2004 and left circumflex stent in 2012/paroxysmal a.fib/tachy- precious syndrome s/o pacemaker/HTN: - Continue Imdur 30 mg QAM, Eliquis 2.5 mg BID, Metoprolol 25 mg BID, Sotalol 120 mg BID, Entresto 1 tab BID - PO Lasix 20 mg to IV Lasix 10 mg daily- hold Lasix on 05/26 due to little PO intake and IVF treatment Increasing O2 supplement demand: - h/o chronic diastolic CHF- ECHO 04/2015- 1. Normal left ventricular size, thickness. 2. LVEF approximately 55%. 3. Anteroseptal, septal, and inferoseptal hypokinesis. 4. Right ventricle appears enlarged with normal function. 5. Pacemaker lead visualized. 6. Severe tricuspid regurgitation. 7. Mild aortic stenosis with PORFIRIO 1cm2, low mean gradient < 10mmHg. 8. Biatrial dilatation. - Continue O2 protocol, wean as tolerated -- Spoke w/ son, patient was requiring more and more periodic O2 supplement at [facility] over the last couple of months - Check CXR for fluid overload on 05/25- Mild stable cardiomegaly. Chronic change. No acute process. Difficulty w/ swallowing: - Consult speech therapy- recommending advancing to pureed diet - Will try to limit PO medications Palliative care consult scheduled for 05/27 CKD, stage III- stable: - IVF - Follow PRP Mild hypomagnesemia of 1/6 on 05/25- resolved: - IV mag 1 gm x1 dose - Follow mag level, replace PRN Mild hypokalemia of 3.4 on 05/25- resolved: - Replete with KCL 20 mEq PO x1 - Follow PRP, replace PRN w/ IV potassium Elevated LFT - improved Hyperlipidemia: Hold Lipitor 40 mg HS due to difficulty with swallowing Hypothyroidism: Synthroid 25 mcg daily to IV Synthroid 12.5 daily Depression: Continue Paxil 20 mg QAM GERD: Hold Zantac, IV Protonix daily GI Prophylaxis: Maalox PRN, IV Zofran PRN, Colace and/or Milk of Mag PRN DVT prophylaxis: Eliquis, BETH and SCDs Code Status: LEVEL V, DNR Dispo: - Resident of [facility] - PT/OT evaluations - Discharge uncertain at this time, pending palliative care consult- hopeful within the next 1-2 days
--- NOTE | 2016-05-27 13:27 | Palliative Care Consultation ---
Consultation Date of Consultation: May 27, 2016. Requesting Physician: Dr. Flores Attending Physician: Dr. Flores Reason for Consultation: Goals of care History of Present Illness This 85 year old female patient presented to the ED three days ago with c/o right sided facial swelling and was found to have right sided parotitis-MRSA. This patient has a history of CAD s/p CABG, afib, tachy/precious s/p pacer, and others listed below. She recently lost her of >60 years last July. Since then patient has had a significant decline in functional status. Yesterday , patient was lethargic, not eating or drinking, and unable to stay awake or get OOB. Her family was very concerned and wanted to discuss next steps. I met with the patient's family: two daughters including TOBY Paul, daughter in law, and patient's son. We discussed goals of care. The family is quite pleased and happy that patient is awake, alert and eating today. They still wanted to discuss goals. Patient is a DNR/DNI per her wishes. The family stated that when the patient's was very sick, she had expressed her wishes to never have heroic measures such as CPR, intubation, feeding tube or dialysis. They decided that even if patient is unable to eat or drink, she would not want a feeding tube. They said patient is not eating much, has been losing weight, has had a major decline since December when moved to [facility]. The plan is to get patient back to [facility] skilled, then transition to comfort care/hospice. I then met with the patient. She is confused, but able to answer some questions. She denies any pain or discomfort. She was unable to participate in goals of care conversation. Past Medical/Surgical History Medical History: Afib CAD Tachy/precious syndrome Hypothyroidism Hypertension HLD Depression Surgical History: Pacemaker CABG 2004 Cardiac stenting Social History Smoking Status: Unknown if Ever Smoked History of Alcohol Use: No Marital Status: Housing Status: lives with family Occupation Status: unemployed Review of Systems Respiratory: No dyspnea on exertion, No shortness of breath Cardiac: No chest pain, No edema Abdomen: No nausea, No pain, No vomiting limited ROS, patient is confused Allergies Coded Allergies: Metronidazole (Verified Allergy, Intermediate, flu-like symptoms, 03/14/16) Tetracycline (Verified Allergy, Mild, TONGUE PEELS, 03/14/16) Nitrofurantoin (Verified Allergy, Unknown, flu like symptoms, 03/14/16) Medications Current Inpatient Medications Medications (Trade) Dose Ordered Sig/Uzair Route Start Time Stop Time Status Last Admin Dose Admin Acetaminophen (Tylenol Tab) 650 mg Q4H PRN PO 05/21/16 15:45 06/20/16 15:44 05/25/16 17:37 650 MG Al Hydrox/Mg Hydrox/Simethicone (Maalox Max Susp) 15 ml Q4H PRN PO 05/21/16 15:45 06/20/16 15:44 Magnesium Hydroxide (Milk Of Magnesia Susp) 30 ml Q6H PRN PO 05/21/16 15:45 06/20/16 15:44 Polyethylene (Miralax Powder Packet) 17 gm DAILY PRN PO 05/21/16 15:45 06/20/16 15:44 Ondansetron HCl (Zofran Inj) 4 mg Q6H PRN IV 05/21/16 15:45 06/20/16 15:44 Apixaban (Eliquis Tab) 2.5 mg BID PO 05/21/16 21:00 06/20/16 20:59 05/27/16 08:14 2.5 MG Atorvastatin Calcium (Lipitor Tab) 40 mg HS PO 05/21/16 21:00 06/20/16 20:59 Future Hold 05/24/16 20:58 40 MG Furosemide (Lasix Tab) 20 mg DAILY PO 05/22/16 09:00 06/21/16 08:59 Future Hold 05/25/16 08:03 20 MG Isosorbide Mononitrate (Imdur Ext Rel Tab) 30 mg QAM PO 05/22/16 09:00 06/21/16 08:59 05/27/16 08:15 30 MG Levothyroxine Sodium (Synthroid Tab) 25 mcg DAILYBB PO 05/22/16 06:30 06/21/16 06:59 Future Hold 05/24/16 06:36 25 MCG Metoprolol Tartrate (Lopressor Tab) 25 mg BID PO 05/21/16 21:00 06/20/16 20:59 05/27/16 10:19 25 MG Oxybutynin Chloride (Ditropan-Xl Tab) 10 mg QAM PO 05/22/16 09:00 06/21/16 08:59 05/27/16 08:13 10 MG Paroxetine HCl (pAXil TAB) 20 mg QAM PO 05/22/16 09:00 06/21/16 08:59 05/27/16 08:15 20 MG Ranitidine HCl (zANTac TAB) 150 mg QAM PO 05/22/16 09:00 06/21/16 08:59 Future Hold 05/25/16 08:05 150 MG Sacubitril/ Valsartan (Entresto 24-26 Mg) 1 tab Q12 PO 05/21/16 21:00 06/20/16 20:59 05/27/16 08:14 1 TAB Sotalol HCl (Betapace Tab) 120 mg BID PO 05/21/16 21:00 06/20/16 20:59 05/27/16 08:14 120 MG Morphine Sulfate (MoRPHine SULFATE INJ) 0.5 mg Q3H PRN IV 05/21/16 15:45 06/04/16 15:44 05/21/16 19:28 0.5 MG Miscellaneous (Iv Fluids Completed) 1 ea PRN PRN N/A 05/21/16 19:00 05/21/17 18:59 Vancomycin HCl 1 ea 1 ea UD PRN N/A 05/23/16 05:00 06/22/16 04:59 Vancomycin HCl/ Sodium Chloride (Vancomycin Inj/ Nss 250ml) 265 ml @ 125 mls/hr Q20H IV 05/25/16 13:00 06/04/16 07:08 05/27/16 05:00 125 MLS/HR Docusate Sodium 100 mg 100 mg BID PRN PO 05/25/16 10:15 06/24/16 10:14 Furosemide 10 mg/ Syringe 1 ml @ 4 mls/min DAILY IV 05/26/16 09:00 06/25/16 08:59 Future Hold 05/26/16 08:05 4 MLS/MIN Levothyroxine Sodium 12.5 mcg/ Syringe 0.625 ml @ 2 mls/min DAILY@09 IV 05/26/16 09:00 06/25/16 08:59 05/27/16 10:19 2 MLS/MIN Pantoprazole Sodium/Syringe (Protonix Inj/ Syringe) 10 ml @ 5 mls/min DAILY@11 IV 05/26/16 11:00 06/25/16 10:59 05/27/16 10:19 5 MLS/MIN Magnesium Oxide 400 mg 400 mg BID PO 05/25/16 21:00 06/24/16 20:59 05/27/16 08:15 400 MG Sodium Chloride (Nss 1000ml) 1,000 ml @ 50 mls/hr Q20H IV 05/26/16 11:30 06/25/16 11:29 05/27/16 08:16 50 MLS/HR Physical Exam Date Time Temp Pulse Resp B/P Pulse Ox O2 Delivery O2 Flow Rate FiO2 05/27/16 10:45 95 Room Air 05/27/16 07:15 36.7 73 17 155/92 90 Room Air 05/27/16 00:24 36.7 69 18 145/90 100 2.0 05/27/16 00:00 100 Nasal Cannula 4.0 05/26/16 15:40 36.6 77 20 153/105 91 Nasal Cannula 4.0 05/26/16 15:30 Nasal Cannula 4.0 General Appearance: no apparent distress ENT: hearing grossly normal Neck: no JVD Respiratory: lungs clear, no respiratory distress, no accessory muscle use, + decreased breath sounds Cardiovascular: regular rate, rhythm, no edema, + normal peripheral pulses Abdomen: normal bowel sounds, non tender, soft Neurologic/Psychiatric: alert, + disoriented Laboratory Results Last 24 Hours Test 05/27/16 04:20 05/27/16 09:00 White Blood Count 6.93 K/uL Red Blood Count 5.54 M/uL Hemoglobin 13.1 g/dL Hematocrit 40.4 % Mean Corpuscular Volume 72.9 fL Mean Corpuscular Hemoglobin 23.6 pg Mean Corpuscular Hemoglobin Concent 32.4 g/dl RDW Standard Deviation 68.0 fL RDW Coefficient of Variation 25.5 % Platelet Count 190 K/uL Sodium Level 141 mmol/L Potassium Level 4.0 mmol/L Chloride Level 108 mmol/L Carbon Dioxide Level 30 mmol/L Anion Gap 3.0 mmol/L Blood Urea Nitrogen 18 mg/dl Creatinine 1.00 mg/dl Est Creatinine Clear Calc Drug Dose 39.7 ml/min Estimated GFR () 59.9 Estimated GFR (Non- 51.7 BUN/Creatinine Ratio 17.9 Random Glucose 84 mg/dl Calcium Level 8.4 mg/dl Magnesium Level 2.0 mg/dl Chemistry Specimen Hemolysis Vancomycin Level Trough 20.3 mcg/ml Urine Color DK YELLOW Urine Appearance TURBID Urine pH 5.5 Urine Specific [place] 1.021 Urine Protein 2+ Urine Glucose (UA) NEG Urine Ketones TRACE Urine Occult Blood TRACE Urine Nitrite NEG Urine Bilirubin NEG Urine Urobilinogen NEG Urine Leukocyte Esterase MODERATE Urine WBC (Auto) >30 /hpf Urine RBC (Auto) 0-4 /hpf Urine Hyaline Casts (Auto) /lpf Urine Epithelial Cells (Auto) >30 /lpf Urine Bacteria (Auto) NEG Urine Renal Epithelial Cells 20-30 /lpf Urine Pathogenic Casts /lpf Assessment & Plan Palliative Performance Scale: 40 % Problem list: Weakness Failure to thrive- weight loss, not eating, albumin 2.2 Cognitive decline- ?dementia, but no official diagnosis per the family Parotitis- improving ?UTI- culture NGTD Hx CAD, CABG Palliative care plan: -DNR/DNI -If patient is not able to swallow or eat, the family would not want a feeding tube placed per patient's wishes. The patient always stated that she would not want heroic measures done to keep her alive -Discontinue Lipitor and Fish oil per family request. Patient is having trouble swallowing pills -Wondering if patient should be on Eliquis given her high fall risk. Will defer to primary team to make that decision -Goal is for comfort and to stay out of the hospital. Not "comfort measures only " yet, but family is agreeable to hospice which I believe her failure to thrive would qualify her for. -Plan is to return to [facility] under skilled benefit, then transition to hospice care when they are ready thank you kindly for this consult. I will follow as needed.
[2016-05-27 15:16] VITALS: BP 154/96; PULSE 70; TEMP 36.6; O2SAT 93
[2016-05-28 00:16] VITALS: BP 157/104; PULSE 76; TEMP 36.6; O2SAT 95
[2016-05-28] MEDS: VANCOMYCIN INJ 750 MG in SODIUM CHLORIDE 0.9% 250ML 250 ML IV SCH (01:02)
[2016-05-28] MEDS: SODIUM CHLORIDE 0.9% 1000ML 1,000 ML IV SCH (03:30)
[2016-05-28 07:41] LABS: BUN/CREATININE RATIO 18.7 (10-20); CREATININE 0.93 mg/dl (0.60-1.20); MAGNESIUM 1.8 mg/dl (1.8-2.4); POTASSIUM 4.1 mmol/L (3.5-5.1)
[2016-05-28 07:42] VITALS: BP 158/105; PULSE 71; TEMP 36.4; O2SAT 97
[2016-05-28 07:48] LABS: CALCIUM 8.6 mg/dl (8.5-10.1)
[2016-05-28] MEDS: MoRPHine SULFATE 2 MG/ML CARP IV PRN (08:00)
[2016-05-28] MEDS: PAROXETINE 20 MG TAB PO SCH (08:04)
[2016-05-28] MEDS: MAGNESIUM OXIDE 400 MG TAB PO SCH (08:06)
[2016-05-28] MEDS: SACUBITRIL-VALSARTAN 24-26 MG TAB PO SCH (08:07)
[2016-05-28] MEDS: APIXABAN 2.5 MG TAB PO SCH (08:08)
[2016-05-28] MEDS: SOTALOL HCL 80 MG TAB PO SCH (08:10)
[2016-05-28] MEDS: OXYBUTYNIN CHLORIDE 5 MG TABCR PO SCH (08:11)
[2016-05-28] MEDS: METOPROLOL TARTRATE 25 MG TAB PO SCH (08:12)
[2016-05-28] MEDS: ISOSORBIDE MONONITRATE 30 MG TABCR PO SCH (08:13)
[2016-05-28] MEDS ORDERED: SPT/ PO (08:21)
--- NOTE | 2016-05-28 08:33 | Discharge Instructions ---
Discharge Instructions Date of Service May 28, 2016. Admission Reason for Admission: Parotitis Discharge Discharge Diagnosis / Problem: Parotitis Discharge Goals Goal(s): Decrease discomfort, Improve function, Improve nutritional status, Diagnostic testing, Therapeutic intervention, Prevent Disease Progression Activity Recommendations Activity Level: Assistance Required Therapies: Physical Therapy, Occupational Therapy . Additional Information Patient informed of condition: Yes Advance Directives: Yes DNR: Yes Level of Care: Skilled Communicable Disease: No Prognosis: Deteriorating Waterman Catheter: No Instructions / Follow-Up Instructions / Follow-Up Speech Therapy Discharge Instructions 1. Pureed diet 2. Aspiration precautions. Straws OK. Fully upright for meals and for 30-60 minutes after meals. Only feed when awake and alert. 3. Small single sips with cup or straw. Keep head positioning neutral for meals. New/changed medications: 1. Bactrim 1 tablet by mouth twice daily for 2 weeks 2. Lasix has been discontinued due to little oral intake/dehydration 3. Potassium supplement has been discontinued due to stopping Lasix 4. Discontinue Lipitor/fish oil per family request to limit medication intake 5. Mag-Ox supplement 400 mg by mouth twice daily Resume all other regular home medications as prescribed MEDICATIONS HAVE BEEN CRUSHED AND PLACED IN PUDDING Palliative Care Plan: - DNR/DNI - If patient is not able to swallow or eat, the family would NOT want a feeding tube placed per patient's wishes- The patient always stated that she would not want heroic measures done to keep her alive -Goal is for comfort and to stay out of the hospital. Not "comfort measures only" yet, but family is agreeable to hospice which her failure to thrive would qualify her for. - Plan is to return to [facility] under skilled benefit, then transition to hospice care when they are ready Please follow-up with [facility] provider within 24-48 hours Please follow-up/keep all of your subspecialty appointments Current Hospital Diet Patient's current hospital diet: AHA Diet (Heart Healthy) Discharge Diet Recommended Diet: Regular Diet Diet Texture: Pureed (blended smooth) Procedures Procedures Performed: 1. Maxillofacial CT 2. Chest x-rays Pending Studies Studies pending at discharge: no Physician Orders On Transfer Special Precautions: ASPIRATION PRECAUTIONS Additional Orders: Monitor urinary output- bladder scan/straight cath PRN or Waterman placement if needed Laboratory Results Last 24 Hours Test 05/27/16 09:00 05/28/16 07:10 Urine Color DK YELLOW Urine Appearance TURBID Urine pH 5.5 Urine Specific Lindley 1.021 Urine Protein 2+ Urine Glucose (UA) NEG Urine Ketones TRACE Urine Occult Blood TRACE Urine Nitrite NEG Urine Bilirubin NEG Urine Urobilinogen NEG Urine Leukocyte Esterase MODERATE Urine WBC (Auto) >30 /hpf Urine RBC (Auto) 0-4 /hpf Urine Hyaline Casts (Auto) /lpf Urine Epithelial Cells (Auto) >30 /lpf Urine Bacteria (Auto) NEG Urine Renal Epithelial Cells 20-30 /lpf Urine Pathogenic Casts /lpf Sodium Level 140 mmol/L Potassium Level 4.1 mmol/L Chloride Level 108 mmol/L Carbon Dioxide Level 25 mmol/L Anion Gap 7.0 mmol/L Blood Urea Nitrogen 17 mg/dl Creatinine 0.93 mg/dl Est Creatinine Clear Calc Drug Dose 42.7 ml/min Estimated GFR () 65.4 Estimated GFR (Non- 56.4 BUN/Creatinine Ratio 18.7 Random Glucose 79 mg/dl Calcium Level 8.6 mg/dl Magnesium Level 1.8 mg/dl Medical Emergencies . Who to Call and When: Medical Emergencies: If at any time you feel your situation is an emergency, please call 911 immediately. . Non-Emergent Contact Non-Emergency issues call your: Primary Care Provider . . "Provider Documentation" section prepared by Janna Lipscomb. Core Measure Problem Core Measures: None
--- NOTE | 2016-05-28 08:50 | Discharge Summary ---
Discharge Summary Date of Service May 28, 2016. Discharge Summary Admission Date: May 24, 2016 at 12:05 Discharge Date: May 28, 2016 Discharge Disposition: custodial facility Principal Diagnosis: Parotitis Problems/Secondary Diagnoses: 1. UTI, h/o ESBL 2. CAD s/p CABG in 2004 and left circumflex stent in 2011/paroxysmal a.fib/tachy -precious syndrome s/o pacemaker/HTN 3. Increasing O2 supplement demand 4. Difficulty w/ swallowing 5. Urinary retention 6. CKD, stage III- stable 7. Mild hypomagnesemia 8. Mild hypokalemia 9. Elevated LFT 10. Hyperlipidemia 11. Hypothyroidism 12. Depression 13. GERD Immunizations: Have You Had Influenza Vaccine: Yes Influenza Vaccine Date: Nov 16, 2011 History of Tetanus Vaccine?: Yes Tetanus Immunization Date: Nov 16, 2011 History of Pneumococcal: No History of Hepatitis B Vaccine: Unknown Procedures: CT FACIAL BONES-MXILLOFAC WITHOUT CT DOSE: 603.21 mGy.cm CLINICAL HISTORY: right facial swelling COMPARISON STUDY: No previous studies for comparison. The examination is limited as no intravenous contrast was administered. TECHNIQUE: Helical images were acquired in the transverse plane. The study was reviewed and analyzed on the independent 3-D workstation. The pterygoid plates appear intact. The zygomatic arches appear intact. The globes appear intact. There is no evidence of orbital emphysema. The orbital humphrey and floor appear intact. There is opacification of a right-sided mastoid air cell. There is right-sided facial edema. There is enlargement of the right parotid gland. The findings likely represent a parotiditis. Clinical correlation is advocated. The mandibular condyles appear intact. IMPRESSION: 1. Marked enlargement and edema of the right parotid gland with surrounding right facial edema. On a statistical basis the findings are secondary to a parotiditis. Clinical correlation follow-up is recommended. If CT follow-up is contemplated, this should be performed with intravenous contrast. Electronically signed by: Leoncio Lopez M.D. 05/21/2016 2:36 PM Dictated Date/Time: 05/21/2016 2:32 PM The status of this report is Signed. Draft = Not yet reviewed or approved by Radiologist. Signed = Reviewed and approved by Radiologist. CHEST ONE VIEW PORTABLE CLINICAL HISTORY: ABDOMINAL PAIN/GI pain COMPARISON STUDY: 03/08/2016 FINDINGS: Prior median sternotomy. Permanent bipolar cardiac pacer in good position. Lungs are clear. Diaphragms smooth. IMPRESSION: No acute process. Chronic and postoperative change. Electronically signed by: Jerry Villafuerte M.D. 05/21/2016 2:30 PM Dictated Date/Time: 05/21/2016 2:29 PM The status of this report is Signed. Draft = Not yet reviewed or approved by Radiologist. Signed = Reviewed and approved by Radiologist. CHEST ONE VIEW PORTABLE CLINICAL HISTORY: worsening SOB, ?CHF exacerbation dyspnea COMPARISON STUDY: 05/21/2016 FINDINGS: Mild stable cardia megaly. Diaphragms smooth. Lungs remain clear. IMPRESSION: Mild stable cardiomegaly. Chronic change. No acute process. Electronically signed by: Jerry Villafuerte M.D. 05/25/2016 10:58 AM Dictated Date/Time: 05/25/2016 10:58 AM The status of this report is Signed. Draft = Not yet reviewed or approved by Radiologist. Signed = Reviewed and approved by Radiologist. Consultations: ID- Abida Alvarez PA-C Palliative care- [id number] Adorno Medication Reconciliation New Medications: Trimethoprim/Sulfamethoxazole (Bactrim 400MG/80MG) 1 Ea Tab 1 TAB PO Q12H for 14 Days, #28 TAB Magnesium Oxide (Magnesium-Oxide) 400 Mg Tab 400 MG PO BID for 30 Days, #60 TAB Continued Medications: Apixaban (Eliquis) 2.5 Mg Tab 2.5 MG PO BID Cranberry (Vaccinium Macrocarp (Cranberry) 250 Mg Cap 250 MG PO BID Docusate Sodium (Colace) 100 Mg Cap 2 CAP PO QAM Isosorbide Mononitrate Ext Rel (Imdur Ext Rel) 30 Mg Tabcr 1 TAB PO QAM Levothyroxine Sodium (Synthroid) 25 Mcg Tab 25 MCG PO DAILY Metoprolol Tartrate (Lopressor) (Lopressor) 25 Mg Tab 25 MG PO BID Oxybutynin Chloride Er (Ditropan Xl) 10 Mg Tab 10 MG PO QAM Paroxetine (Paxil) 20 Mg Tab 20 MG PO QAM Ranitidine (Zantac) 150 Mg Tab 150 MG PO QAM Sacubitril-Valsartan (Entresto 24-26 mg) 1 Tab Tab 1 TAB PO Q12 Sotalol Hcl (Betapace) 120 Mg Tab 120 MG PO BID Discontinued Medications: Atorvastatin (Lipitor) 40 Mg Tab 40 MG PO HS Furosemide (Lasix) 20 Mg Tab 20 MG PO DAILY Hessel-3 Fatty Acids (Hessel 3) 1 Cap Cap 1 CAP PO QAM Potassium Chloride (K-Tab) 20 Meq Tab 20 MEQ PO DAILY Discharge Exam ROS unobtainable secondary to patient's mental status Physical Exam: General Appearance: no apparent distress Eyes: normal inspection, PERRL ENT: hearing grossly normal, + pertinent finding (right-sided facial swelling ) Neck: supple Respiratory/Chest: no respiratory distress, no accessory muscle use, + decreased breath sounds (throughout all lung del angel ), + crackles (crackles bilateral lung bases ) Cardiovascular: regular rate, rhythm, + systolic murmur Abdomen / GI: normal bowel sounds, non tender, soft Extremities: no calf tenderness, no pedal edema, + pertinent finding (lower extremities cool to touch ) Neurologic/Psychiatric: alert, + pertinent finding (lethargic ) Skin: normal color, no rash Hospital Course 85 y/o female, with PMHx of CAD s/p CABG in 2003 and left circumflex stent in 2011, paroxysmal a.fib, tachy-precious syndrome s/o pacemaker, hypothyroidism, HTN , hyperlipidemia, and depression, who presented to the ED because of right- sided facial swelling x2 days Right-sided parotitis: - Admit to med/surg - IV Zosyn + Clindamycin + IV Vancomycin (started on 05/21) x14 day treatment -- Clindamycin d/c'd on 05/24 due resistance -- IV Zosyn d/c'd due to starting IV Primaxin on 05/24 -- Primaxin d/c'd on 05/26- continue IV Vancomycin while in house, ID recommends Bactrim for 1-2 more weeks at discharge- continue Bactrim 1 tab PO BID x2 weeks - IV NSS @ 100 ml/hr- restart IVF at 50 ml/hr on 05/26 due to very little fluid intake - IV 0.5 mg Morphine q3 hrs and Tylenol PRN for pain management - Parotid culture- growing Staph aureus - Follow CBC - Consulted ID, appreciate recommendations - Consulted Oromaxillofacial surgeon, appreciate recommendations -- No intervention at this time -- Spoke with son, will need ENT f/u outpt if complications arise UTI, h/o ESBL: - Pharmacy recommending switching to IV Primaxin due to h/o ESBL and d/c'ing IV Zosyn (05/24) -- d/c'd on 05/26 by ID - UCx- NG CAD s/p CABG in 2004 and left circumflex stent in 2011/paroxysmal a.fib/tachy- precious syndrome s/o pacemaker/HTN: - Continue Imdur 30 mg QAM, Eliquis 2.5 mg BID, Metoprolol 25 mg BID, Sotalol 120 mg BID, Entresto 1 tab BID- continue at discharge - PO Lasix 20 mg to IV Lasix 10 mg daily- hold Lasix on 05/26 due to little PO intake and IVF treatment- recommend d/c Lasix at discharge due to little PO intake/dehydration Increasing O2 supplement demand- resolved: - h/o chronic diastolic CHF- ECHO 04/2015- 1. Normal left ventricular size, thickness. 2. LVEF approximately 55%. 3. Anteroseptal, septal, and inferoseptal hypokinesis. 4. Right ventricle appears enlarged with normal function. 5. Pacemaker lead visualized. 6. Severe tricuspid regurgitation. 7. Mild aortic stenosis with PORFIRIO 1cm2, low mean gradient < 10mmHg. 8. Biatrial dilatation. - Continue O2 protocol, wean as tolerated -- Spoke w/ son, patient was requiring more and more periodic O2 supplement at [facility] over the last couple of months - Check CXR for fluid overload on 05/25- Mild stable cardiomegaly. Chronic change. No acute process. Difficulty w/ swallowing: - Pureed diet - Aspiration precautions, Straws ok. Fully upright for meals and for 30-60 minutes after meals. Only feed when awake and alert. - Small single sips with cup or straw. Keep head positioning neutral for meals. Palliative care consult on 05/27 - The family would not want a feeding tube placed per patient's wishes- The patient always stated that she would not want heroic measures done to keep her alive - Discontinue Lipitor and Fish oil per family request. Patient is having trouble swallowing pills - Goal is for comfort and to stay out of the hospital. Not "comfort measures only" yet, but family is agreeable to hospice which her failure to thrive should qualify her for. - Plan is to return to [facility] under skilled benefit, then transition to hospice care when they are ready Urinary retention: Bladder scan/straight cath PRN CKD, stage III- stable: - IVF - Follow PRP Mild hypomagnesemia of 1/6 on 05/25- resolved: - IV mag 1 gm x1 dose - Follow mag level, replace PRN Mild hypokalemia of 3.4 on 05/25- resolved: - Replete with KCL 20 mEq PO x1 - Follow PRP, replete PRN Elevated LFT - improved Hyperlipidemia: Hold Lipitor 40 mg HS due to difficulty with swallowing- d/c Lipitor/fish oil per family request Hypothyroidism: Synthroid 25 mcg daily to IV Synthroid 12.5 daily Depression: Continue Paxil 20 mg QAM GERD: Hold Zantac, IV Protonix daily- resume Zantac at discharge GI Prophylaxis: Maalox PRN, IV Zofran PRN, Colace and/or Milk of Mag PRN DVT prophylaxis: Eliquis, BETH and SCDs Code Status: LEVEL V, DNR Dispo: Discharge to [facility] Total Time Spent: Greater than 30 minutes This includes examination of the patient, discharge planning, medication reconciliation, and communication with other providers. Discharge Instructions Please refer to the electronic Patient Visit Report (Discharge Instructions) for additional information. Follow-Up Please follow-up with you [place] [facility] provider in 24-48 hours Please follow-up/keep all of your subspecialty appointments Additional Copies To Nikki Fuentes
[2016-05-28] MEDS ORDERED: MGNO400 PO (08:52)
[2016-05-28] MEDS: LEVOTHYROXINE SODIUM INJ 12.5 MCG in SYRINGE 0 ML IV SCH (09:33)
[2016-05-28] MEDS: PANTOprazole INJ 40 MG in SYRINGE 0 ML IV SCH (11:51)
[2016-05-28] MEDS ORDERED: SULFAMETHOXAZOLE/TRIMETHOPRIM DS 800/160MG TAB PO ONE (14:15)
[2016-05-28 14:54] VITALS: BP 146/102; PULSE 71; TEMP 36.6; O2SAT 96
--- NOTE | 2016-05-28 15:53 | Palliative Care Progress Note ---
Palliative Care Progress Note Date of Service May 28, 2016. Subjective Pt evaluation today including: conversation w/ patient, conversation w/ family (Daughter/KIMANIA, Oxana Negron; [id number] Frieda Berry), conversation w / x ray consultant (Dr. Flores, [facility]) -Met with Oxana (TOBY) and Frieda (DYAN). POLST form completed for patient as follows: DNR/DNI, Comfort measures only, use or limitation of antibiotics with comfort as the goal, trial of IVF only if indicated with comfort as the goal, no feeding tube. -Plan to go back to [facility] then transition to hospice. -Patient is more lethargic today, denies pain. Not eating much. Family believes that patient may not improve from this point.
[2016-05-28 16:43] VITALS: BP 146/102; PULSE 71; TEMP 36.6; O2SAT 96
[2016-05-28] MEDS ORDERED: VANCOMYCIN TROUGH SCH (20:30)
[2016-05-28] MEDS ORDERED: SULFAMETHOXAZOLE/TRIMETHOPRIM DS 800/160MG TAB PO SCH (21:00)
== END 2016-05-28 17:37 | disposition hospice, inpatient (51) | DRG 155 ==
LOC: ENRESERVDT → ENRESERVTM → EDBD 12:52 → C.EDC 12:59 → EDBEDREQ 16:19 → UNDOADMOB 16:25 → C.MS2W 16:25 → EDBEDREQ 16:52 → OBSVTOIN 05-24 12:05
PROVIDERS: ADMIT Internal Medicine; ATTEND Hospitalist
DX: K11.20 Sialoadenitis, unspecified (principal); N39.0 Urinary tract infection, site not specified; I50.32 Chronic diastolic (congestive) heart failure; I12.9 Hypertensive chronic kidney disease with stage 1 through stage 4 chronic kidney disease, or unspecified chronic kidney disease; N18.3 Chronic kidney disease, stage 3 (moderate); Z86.73 Personal history of transient ischemic attack (TIA), and cerebral infarction without residual deficits; Z95.0 Presence of cardiac pacemaker; Z95.1 Presence of aortocoronary bypass graft; I25.10 Atherosclerotic heart disease of native coronary artery without angina pectoris; Z95.5 Presence of coronary angioplasty implant and graft; E78.5 Hyperlipidemia, unspecified; E03.9 Hypothyroidism, unspecified; R33.9 Retention of urine, unspecified; E83.42 Hypomagnesemia; E87.6 Hypokalemia; K21.9 Gastro-esophageal reflux disease without esophagitis; I08.2 Rheumatic disorders of both aortic and tricuspid valves; E86.0 Dehydration; B95.62 Methicillin resistant Staphylococcus aureus infection as the cause of diseases classified elsewhere

== ENCOUNTER → 2016-06-15 | Outpatient (CLI) | payer OTHER ==
[~2016-06-15] MED LIST changes: -ACET325T30 PO; +APIX1TAB PO; -APIX1TAB3 PO; -ASPI-435 PO; -ATR10 PO; -BENZ10LO2 PO; +CRAN1CAP6 PO; -CRAN500C2 PO; +DOCU-94 PO; -DOCU100C31 PO; -HYDR1OIN11 TOP; -IMDSR30 PO; +ISOS30TA35 PO; +LEVO25TA PO; -LPR25 PO; -LPT40 PO; +METO25TA56 PO; +MGNO400 PO; -MOML PO; -NTRSLP4 UT; -OMG3 PO; -OXYB10TA PO; +OXYB10TA13 PO; -PLV75 PO; +SACU1TAB PO; -SOTA120T PO; +SOTA120T16 PO; -[UNRECOGNIZED DRUG - CODE] MT
[2016-06-15 08:48] LABS: URINE APPEARANCE CLOUDY (CLEAR); URINE BILIRUBIN NEG (NEG); URINE COLOR DK YELLOW; URINE EPITHELIAL CELL AUTO 0-5 /lpf (0-5); URINE NITRITE POS (NEG); URINE SPECIFIC GRAVITY 1.013 (1.000-1.030); UROBILINOGEN POS (NEG)
[2016-06-15 08:57] LABS: MANUAL MICROSCOPIC REQUIRED? NO; REVIEW REQ? NO
== END ==
LOC: C.LABCC 08:03
PROVIDERS: ATTEND Internal Medicine
DX: N39.0 Urinary tract infection, site not specified (principal)

== ENCOUNTER → 2016-07-14 | Outpatient (CLI) | payer OTHER ==
[2016-07-14 18:17] LABS: URINE APPEARANCE TURBID (CLEAR); URINE BILIRUBIN NEG (NEG); URINE COLOR DK YELLOW; URINE EPITHELIAL CELL AUTO >30 /lpf (0-5); URINE NITRITE NEG (NEG); URINE PH >= 9.0 (4.5-7.5); URINE SPECIFIC GRAVITY 1.018 (1.000-1.030); UROBILINOGEN NEG (NEG); ZZUR CULT IF INDIC CLEAN CATCH YES
[2016-07-14 18:27] LABS: MANUAL MICROSCOPIC REQUIRED? NO; REVIEW REQ? YES; SULFASALICYLIC ACID POS (NEG)
== END | disposition home or self-care (01) ==
LOC: C.LABCC 17:38
PROVIDERS: ATTEND Internal Medicine
DX: R41.82 Altered mental status, unspecified (principal)

== ENCOUNTER → 2016-08-04 | Outpatient (CLI) | payer OTHER ==
[2016-08-04 18:48] LABS: URINE APPEARANCE TURBID (CLEAR); URINE BILIRUBIN NEG (NEG); URINE COLOR DK YELLOW; URINE EPITHELIAL CELL AUTO >30 /lpf (0-5); URINE NITRITE NEG (NEG); URINE PH >= 9.0 (4.5-7.5); UROBILINOGEN NEG (NEG)
[2016-08-04 18:58] LABS: MANUAL MICROSCOPIC REQUIRED? NO; REVIEW REQ? YES; SULFASALICYLIC ACID POS (NEG)
== END ==
LOC: C.LABCC 17:35
PROVIDERS: ATTEND Internal Medicine
DX: R41.82 Altered mental status, unspecified (principal)